=== PATIENT | female | born 1940 | race Caucasian/White ===

== ENCOUNTER 2017-08-01 07:19 | Inpatient (IN) ==
--- NOTE | 2017-08-01 07:49 | Emergency Department Note ---
Disposition Clinical Impression: Dehydration, Laceration, Pulmonary mass Thoracic spine fracture Qualifiers: Encounter type: subsequent encounter Thoracic vertebra fracture level: T10 Fracture type: closed Fracture morphology: unspecified fracture morphology Fracture healing: with routine healing Qualified Code(s): S22.079D - Unspecified fracture of T9-T10 vertebra, subsequent encounter for fracture with routine healing Disposition: Admitted As Inpatient Condition: Fair Fall HPI - General Chief Complaint: ED Fall Stated Complaint: fall Time Seen by Provider: 08/01/17 07:21 Source: EMS Mode of arrival: EMS Limitations: no limitations Nursing Notes Reviewed: Yes Vital Signs Reviewed: Yes - History of Present Illness HPI Narrative: 76 year old female who is living in an printing bindery assistant living facility presents with fall. Pt stated she has weak legs. She usually has a printing bindery assistant in daytime to help her move in wheelchair. She tried to stand up from bed this morning. And she lost balance and fell on her face. Pt denied loss of consciousness. Pt had help within 5 minutes. Pt denied headache, chest pain, abdominal pain or legs pain. pt is not on blood thinner. Up-to-date vaccination. Pt fell on 2017. She had PT evaluation yesterday. Pt complained of some neck pain and right shoulder pain from last time fall. Pt Subjective Complaint: fall Onset (ago): hour(s) (1) Fall From: out of bed Fall Witnessed: no Place Fall Occurred: care home/SNF Loss of Consciousness: none Prolonged Down Time?: no Symptoms Prior to Fall: other (both legs weakness) - Related Data Home Medications Medication Instructions Recorded Confirmed Acetaminophen [Tylenol] 650 mg PO Q4H PRN 08/01/17 08/01/17 Aspirin [Lo-Dose Aspirin EC] 81 mg PO HS 08/01/17 08/01/17 BuPROPion SR (12 HR) [Wellbutrin 100 mg PO BID 08/01/17 08/01/17 SR] Calcitriol [Rocaltrol] 0.25 mcg PO DAILY 08/01/17 08/01/17 Cholecalciferol (D-3) [Vitamin D] 1,000 unit PO DAILY 08/01/17 08/01/17 FLUoxetine HCl [PROzac] 80 mg PO DAILY 08/01/17 08/01/17 Ferrous Sulfate [Iron] 325 mg PO HS 08/01/17 08/01/17 Furosemide [Lasix] 20 mg PO MOWEFR 08/01/17 08/01/17 Loperamide HCl [Imodium A-D] 2 mg PO QID PRN 08/01/17 08/01/17 Lovastatin 40 mg PO HS 08/01/17 08/01/17 Mag Hydrox/Al Hydrox/Simeth 30 ml PO DAILY PRN 08/01/17 08/01/17 [Antacid Suspension] Magnesium Hydroxide [Milk of 30 ml PO DAILY PRN 08/01/17 08/01/17 Magnesia] Nystatin POWDER [Nystop] 1 appl TP TID 08/01/17 08/01/17 Ondansetron [Zofran ODT] 8 mg SL Q8H PRN 08/01/17 08/01/17 Propranolol LA (24 HR) [Inderal LA] 60 mg PO DAILY 08/01/17 08/01/17 Sennosides [Senna] 2 tab PO DAILY PRN 08/01/17 08/01/17 Tramadol HCl [Ultram] 50 mg PO QID PRN 08/01/17 08/01/17 Trospium Chloride 20 mg PO HS 08/01/17 08/01/17 predniSONE [PredniSONE] 4 mg PO DAILY 08/01/17 08/01/17 Allergies Allergy/AdvReac Type Severity Reaction Status Date / Time No Known Allergies Allergy Verified 08/01/17 12:37 Constitutional: Denies: fever, chills, weakness Eyes: Denies: eye pain, eye discharge ENT ED: Denies: ear pain, throat pain, dental pain Cardiovascular: Denies: chest pain, palpitations, dyspnea on exertion Respiratory: Denies: cough, dyspnea, wheezes Gastrointestinal: Denies: abdominal pain, nausea, vomiting Genitourinary: Denies: urgency, dysuria, frequency, hematuria Musculoskeletal: Reports: neck pain. Denies: back pain, joint swelling, arthralgia Integumentary: Reports: lesions (old ulcer right mercado), other (a small laceration on right side upper lid). Denies: rash, abrasion Neurological: Denies: headache, weakness, numbness Psychiatric: Denies: anxiety, depression, suicidal thoughts Endocrine: Denies: fatigue, heat or cold intolerance Hematological/Lymphatic: Denies: easy bleeding, easy bruising Allergic/Immunologic: Denies: facial swelling, urticaria Fall PMH - Past Medical History Medical history: Reports: diabetes, hyperlipidemia, hypertension, osteoporosis, COPD Psychiatric history: Reports: depression - Social History Smoking Status: Never smoker Alcohol use: Reports: none Drug use: Reports: none Physical Exam - General Limitations: no limitations General appearance: alert, in no apparent distress - Head Head exam: atraumatic, normal inspection - Eye Eye exam: Present: normal appearance. Absent: scleral icterus, conjunctival injection - ENT ENT exam: normal exam, normal external ear exam - Neck Neck exam: Present: normal inspection, full ROM, trachea midline, tenderness ( right side neck tender to palpation, no limited of ROM on cervicle spine) - Chest Chest inspection: Present: normal inspection, symmetric chest wall rise. Absent : tenderness - Respiratory Respiratory exam: Present: normal lung sounds bilaterally. Absent: respiratory distress, wheezes - Cardiovascular Cardiovascular exam: Present: regular rate, normal rhythm - Abdominal Exam Abdominal exam: Present: soft, Non-Tender - Extremities Exam Extremities exam: Present: normal inspection, full ROM. Absent: tenderness - Expanded Lower Extremity Exam Lower leg exam: Present: swelling, other (bilateral lower leg mild swelling, there is a 2x2 ulcer on right mercado, mild warm, no purulent drainage noted) Ankle exam: Present: normal inspection, full ROM. Absent: tenderness, swelling Neurovascular/Tendon exam: Present: normal capillary refill - Back Exam Back exam: Present: normal inspection, other (pt lying on bed, able to sit up) - Neurological Exam Neurological exam: Present: alert, oriented X3 - Psychiatric Psychiatric exam: Present: normal affect, normal mood - Skin Skin exam: Present: warm Course Vital Signs Temperature 97.8 F 08/01/17 07:22 Pulse Rate 62 08/01/17 07:22 Respiratory Rate 20 08/01/17 07:22 Blood Pressure 173/76 08/01/17 07:22 O2 Sat by Pulse Oximetry 96 08/01/17 07:22 Temperature 98.2 F 08/01/17 14:16 Pulse Rate 61 08/01/17 14:16 Respiratory Rate 14 08/01/17 14:16 Blood Pressure 149/79 08/01/17 14:16 O2 Sat by Pulse Oximetry 96 08/01/17 14:16 Oxygen Delivery Oxygen Delivery Room Air Procedures - Laceration Laceration 1 Site: lip Side (If applicable): right Size (cm): 2 Description: linear Depth: simple, single layer Local Anesthetic: lidocaine 1% Amount of Anesthesia Used (mL): 5 Pre-repair: wound explored Skin layer closed with: nylon Size: 5-0 Number of sutures/caprice: 5 Technique: simple, interrupted Fall - [facility] Narrative Medical decision making narrative: 76 year old female presents with fall. Pt is a resident of [facility]. pt fell on her face this morning. No loss of consciousness. No downtime. not on blood thinner. Recently fell two weeks ago. Physical exam: alert and oriented, a 2 cm laceration on right upper lip, no active bleeding, right side neck tender, abdomen soft, no tender. right side mercado with a chronic small [id number] cm, mild erythema, mild warmth, no tender, no purulent drainage. Labs: elevated white cell 27, cr. 2.05 (increasing from two weeks ago) . CT head, facial, cervical, thoracic, chest, abdomen done, indicated multiple acute thoracic spine fracture, some new lung mass noted. lip laceration is fixed with 5 stitches (see procedure note), pt tolerated well the procedure. Dr. Lee saw the patient, he discussed this case with hospitalist, pt will be admitted to hospital for dehydration, acute kidney injury, thoracic fracture. 500 ml bolus fluids given in ER - Lab Data Lab results reviewed: Yes I reviewed the patient's lab results. Result diagrams: 08/01/17 08:04 08/01/17 08:04 Lab Results 08/01/17 08/01/17 08/01/17 Range/Units 08:04 08:04 10:08 WBC 27.6 H (4.3-11.1) K/mcL RBC 3.63 L (3.82-4.97) M/mcL Hgb 11.3 L (11.5-15.4) g/dL Hct 34.1 L (35.3-44.9) % MCV 93.9 (83.0-100.0) fL MCH 31.1 (28.0-33.3) pg MCHC 33.1 (31.6-35.5) g/dL RDW 14.6 H (11.5-14.5) % Plt Count 158 (140-400) K/mcL MPV 11.4 (9.4-12.4) fL Immature Gran % 2.6 (0-4) % Seg Neutrophils % 86.8 % Lymphocytes % 4.6 % Monocytes % 5.6 % Eosinophils % 0.2 % Basophils % 0.2 % Neutrophils # 24.0 H (1.6-8.9) K/mcL Lymphocytes # 1.3 (0.6-4.6) K/mcL Monocytes # 1.6 H (0.0-1.3) K/mcL Eosinophils # 0.1 (0.0-0.6) K/mcL Basophils # 0.1 (0.0-0.2) K/mcL Nucleated RBCs/100 WBC 0.1 H (0) /100 WBC Platelet Estimate Normal (Normal) Sodium 132 L (136-145) mEq/L Potassium 4.3 (3.5-5.1) mEq/L Chloride 95 L (98-107) mEq/L Carbon Dioxide 27 (23-29) mEq/L BUN 46 H (8-23) mg/dL Creatinine 2.05 H (0.60-1.20) mg/dL Est GFR ( Amer) 29 L (> 60) Est GFR (Non-Af Amer) 24 L (> 60) BUN/Creatinine Ratio 22 (6-26) Glucose 258 H (70-105) mg/dL Calculated Osmolality 295 (280-300) Lactic Acid 0.9 (0.5-2.2) mmol/L Calcium 8.7 (8.6-10.3) mg/dL Troponin I < 0.03 (< 0.04) ng/mL Urine Color (Yellow) Urine Clarity (Clear) Urine pH (5.0-8.0) pH Units Ur Specific [place] (1.010-1.025) Urine Protein (Neg-Trace) mg/dL Urine Glucose (UA) (Normal) mg/dL Urine Ketones (Negative) mg/dL Urine Blood (Negative) Urine Nitrite (Negative) Urine Bilirubin (Negative) Urine Urobilinogen (Normal) mg/dL Ur Leukocyte Esterase (Negative) Urine Microscopic RBC (0-3) per hpf Urine Microscopic WBC (0-3) per hpf Ur Squamous Epith Cells (None-Few) per lpf Urine Bacteria (None-Few) per hpf Hyaline Casts (None-Few) per lpf Ur Culture Indicated? (NO) 08/01/17 Range/Units 10:17 WBC (4.3-11.1) K/mcL RBC (3.82-4.97) M/mcL Hgb (11.5-15.4) g/dL Hct (35.3-44.9) % MCV (83.0-100.0) fL MCH (28.0-33.3) pg MCHC (31.6-35.5) g/dL RDW (11.5-14.5) % Plt Count (140-400) K/mcL MPV (9.4-12.4) fL Immature Gran % (0-4) % Seg Neutrophils % % Lymphocytes % % Monocytes % % Eosinophils % % Basophils % % Neutrophils # (1.6-8.9) K/mcL Lymphocytes # (0.6-4.6) K/mcL Monocytes # (0.0-1.3) K/mcL Eosinophils # (0.0-0.6) K/mcL Basophils # (0.0-0.2) K/mcL Nucleated RBCs/100 WBC (0) /100 WBC Platelet Estimate (Normal) Sodium (136-145) mEq/L Potassium (3.5-5.1) mEq/L Chloride (98-107) mEq/L Carbon Dioxide (23-29) mEq/L BUN (8-23) mg/dL Creatinine (0.60-1.20) mg/dL Est GFR ( Amer) (> 60) Est GFR (Non-Af Amer) (> 60) BUN/Creatinine Ratio (6-26) Glucose (70-105) mg/dL Calculated Osmolality (280-300) Lactic Acid (0.5-2.2) mmol/L Calcium (8.6-10.3) mg/dL Troponin I (< 0.04) ng/mL Urine Color Yellow (Yellow) Urine Clarity Clear (Clear) Urine pH 6.0 (5.0-8.0) pH Units Ur Specific [place] 1.018 (1.010-1.025) Urine Protein Trace (Neg-Trace) mg/dL Urine Glucose (UA) 250 H (Normal) mg/dL Urine Ketones Negative (Negative) mg/dL Urine Blood Negative (Negative) Urine Nitrite Negative (Negative) Urine Bilirubin Negative (Negative) Urine Urobilinogen Normal (Normal) mg/dL Ur Leukocyte Esterase Negative (Negative) Urine Microscopic RBC 0-3 (0-3) per hpf Urine Microscopic WBC 0-3 (0-3) per hpf Ur Squamous Epith Cells Many H (None-Few) per lpf Urine Bacteria None Seen (None-Few) per hpf Hyaline Casts None Seen (None-Few) per lpf Ur Culture Indicated? NO (NO) - Radiology Data Radiology results reviewed: Yes I reviewed the patient's radiology results. CT/CT abd pelvis wo no iv no oral IMPRESSION: 1. Acute moderate superior endplate compression fracture of T10 with 50% vertebral body height loss. 2. Acute mild superior endplate compression fracture of T12 with 20% vertebral body height loss. 3. Acute mild superior endplate compression fracture of T8 with 10% vertebral body height loss. 4. Nondisplaced left transverse process fracture at L1. 5. No acute traumatic abnormality in the chest. Soft tissue edema in the right axilla is likely posttraumatic. No evidence of rib fracture. 6. Acute-subacute nondisplaced sacrococcygeal fracture. 7. No acute abnormality in the abdomen or pelvis on the noncontrast CT. 8. Multiple scattered pulmonary nodules measuring up to 5 mm in size, new compared to 2009. Follow-up chest CT recommended in 12 months.
--- NOTE | 2017-08-01 08:11 | Emergency Department Note ---
Disposition Clinical Impression: Dehydration, Laceration, Pulmonary mass Thoracic spine fracture Qualifiers: Encounter type: subsequent encounter Thoracic vertebra fracture level: T10 Fracture type: closed Fracture morphology: unspecified fracture morphology Fracture healing: with routine healing Qualified Code(s): S22.079D - Unspecified fracture of T9-T10 vertebra, subsequent encounter for fracture with routine healing Disposition: Admitted As Inpatient Condition: Fair General Adult HPI - General Chief complaint: ED Fall Stated complaint: fall Time Seen by Provider: 08/01/17 07:21 Source: EMS Mode of arrival: EMS Limitations: no limitations - History of Present Illness Pain Scale: 2 - Related Data Home Medications Medication Instructions Recorded Confirmed Acetaminophen [Tylenol] 650 mg PO Q4H PRN 08/01/17 08/01/17 Aspirin [Lo-Dose Aspirin EC] 81 mg PO HS 08/01/17 08/01/17 BuPROPion SR (12 HR) [Wellbutrin 100 mg PO BID 08/01/17 08/01/17 SR] Calcitriol [Rocaltrol] 0.25 mcg PO DAILY 08/01/17 08/01/17 Cholecalciferol (D-3) [Vitamin D] 1,000 unit PO DAILY 08/01/17 08/01/17 FLUoxetine HCl [PROzac] 80 mg PO DAILY 08/01/17 08/01/17 Ferrous Sulfate [Iron] 325 mg PO HS 08/01/17 08/01/17 Furosemide [Lasix] 20 mg PO MOWEFR 08/01/17 08/01/17 Loperamide HCl [Imodium A-D] 2 mg PO QID PRN 08/01/17 08/01/17 Lovastatin 40 mg PO HS 08/01/17 08/01/17 Mag Hydrox/Al Hydrox/Simeth 30 ml PO DAILY PRN 08/01/17 08/01/17 [Antacid Suspension] Magnesium Hydroxide [Milk of 30 ml PO DAILY PRN 08/01/17 08/01/17 Magnesia] Nystatin POWDER [Nystop] 1 appl TP TID 08/01/17 08/01/17 Ondansetron [Zofran ODT] 8 mg SL Q8H PRN 08/01/17 08/01/17 Propranolol LA (24 HR) [Inderal LA] 60 mg PO DAILY 08/01/17 08/01/17 Sennosides [Senna] 2 tab PO DAILY PRN 08/01/17 08/01/17 Tramadol HCl [Ultram] 50 mg PO QID PRN 08/01/17 08/01/17 Trospium Chloride 20 mg PO HS 08/01/17 08/01/17 predniSONE [PredniSONE] 4 mg PO DAILY 08/01/17 08/01/17 Allergies Allergy/AdvReac Type Severity Reaction Status Date / Time No Known Allergies Allergy Verified 08/01/17 12:37 Past Medical History - Past Medical History Medical history: Reports: diabetes, hyperlipidemia, hypertension, osteoporosis, COPD Psychiatric history: Reports: depression - Social History Smoking Status: Never smoker Smokeless Tobacco Status: No Alcohol use: Reports: none Drug use: Reports: none Physical Exam - General Limitations: no limitations General appearance: alert, in no apparent distress Course - Consultations Consultation #1: Discussed with Dr. Ambriz he will see the patient in consult. Time: 13:08 Consultation #2: Discussed with Dr. Goldstein admit Time: 13:09 Vital Signs Temperature 97.8 F 08/01/17 07:22 Pulse Rate 62 08/01/17 07:22 Respiratory Rate 20 08/01/17 07:22 Blood Pressure 173/76 08/01/17 07:22 O2 Sat by Pulse Oximetry 96 08/01/17 07:22 Temperature 98.4 F 08/01/17 18:20 Pulse Rate 64 08/01/17 18:20 Respiratory Rate 16 08/01/17 18:20 Blood Pressure 152/65 08/01/17 18:20 O2 Sat by Pulse Oximetry 95 08/01/17 18:20 Oxygen Delivery Oxygen Delivery Room Air Medical Decision Making - Lab Data Result diagrams: 08/01/17 08:04 08/01/17 08:04 Lab Results 08/01/17 08/01/17 08/01/17 Range/Units 08:04 08:04 10:08 WBC 27.6 H (4.3-11.1) K/mcL RBC 3.63 L (3.82-4.97) M/mcL Hgb 11.3 L (11.5-15.4) g/dL Hct 34.1 L (35.3-44.9) % MCV 93.9 (83.0-100.0) fL MCH 31.1 (28.0-33.3) pg MCHC 33.1 (31.6-35.5) g/dL RDW 14.6 H (11.5-14.5) % Plt Count 158 (140-400) K/mcL MPV 11.4 (9.4-12.4) fL Immature Gran % 2.6 (0-4) % Seg Neutrophils % 86.8 % Lymphocytes % 4.6 % Monocytes % 5.6 % Eosinophils % 0.2 % Basophils % 0.2 % Neutrophils # 24.0 H (1.6-8.9) K/mcL Lymphocytes # 1.3 (0.6-4.6) K/mcL Monocytes # 1.6 H (0.0-1.3) K/mcL Eosinophils # 0.1 (0.0-0.6) K/mcL Basophils # 0.1 (0.0-0.2) K/mcL Nucleated RBCs/100 WBC 0.1 H (0) /100 WBC Platelet Estimate Normal (Normal) Sodium 132 L (136-145) mEq/L Potassium 4.3 (3.5-5.1) mEq/L Chloride 95 L (98-107) mEq/L Carbon Dioxide 27 (23-29) mEq/L BUN 46 H (8-23) mg/dL Creatinine 2.05 H (0.60-1.20) mg/dL Est GFR ( Amer) 29 L (> 60) Est GFR (Non-Af Amer) 24 L (> 60) BUN/Creatinine Ratio 22 (6-26) Glucose 258 H (70-105) mg/dL Calculated Osmolality 295 (280-300) Lactic Acid 0.9 (0.5-2.2) mmol/L Calcium 8.7 (8.6-10.3) mg/dL Troponin I < 0.03 (< 0.04) ng/mL Urine Color (Yellow) Urine Clarity (Clear) Urine pH (5.0-8.0) pH Units Ur Specific [place] (1.010-1.025) Urine Protein (Neg-Trace) mg/dL Urine Glucose (UA) (Normal) mg/dL Urine Ketones (Negative) mg/dL Urine Blood (Negative) Urine Nitrite (Negative) Urine Bilirubin (Negative) Urine Urobilinogen (Normal) mg/dL Ur Leukocyte Esterase (Negative) Urine Microscopic RBC (0-3) per hpf Urine Microscopic WBC (0-3) per hpf Ur Squamous Epith Cells (None-Few) per lpf Urine Bacteria (None-Few) per hpf Hyaline Casts (None-Few) per lpf Ur Culture Indicated? (NO) 08/01/17 Range/Units 10:17 WBC (4.3-11.1) K/mcL RBC (3.82-4.97) M/mcL Hgb (11.5-15.4) g/dL Hct (35.3-44.9) % MCV (83.0-100.0) fL MCH (28.0-33.3) pg MCHC (31.6-35.5) g/dL RDW (11.5-14.5) % Plt Count (140-400) K/mcL MPV (9.4-12.4) fL Immature Gran % (0-4) % Seg Neutrophils % % Lymphocytes % % Monocytes % % Eosinophils % % Basophils % % Neutrophils # (1.6-8.9) K/mcL Lymphocytes # (0.6-4.6) K/mcL Monocytes # (0.0-1.3) K/mcL Eosinophils # (0.0-0.6) K/mcL Basophils # (0.0-0.2) K/mcL Nucleated RBCs/100 WBC (0) /100 WBC Platelet Estimate (Normal) Sodium (136-145) mEq/L Potassium (3.5-5.1) mEq/L Chloride (98-107) mEq/L Carbon Dioxide (23-29) mEq/L BUN (8-23) mg/dL Creatinine (0.60-1.20) mg/dL Est GFR ( Amer) (> 60) Est GFR (Non-Af Amer) (> 60) BUN/Creatinine Ratio (6-26) Glucose (70-105) mg/dL Calculated Osmolality (280-300) Lactic Acid (0.5-2.2) mmol/L Calcium (8.6-10.3) mg/dL Troponin I (< 0.04) ng/mL Urine Color Yellow (Yellow) Urine Clarity Clear (Clear) Urine pH 6.0 (5.0-8.0) pH Units Ur Specific [place] 1.018 (1.010-1.025) Urine Protein Trace (Neg-Trace) mg/dL Urine Glucose (UA) 250 H (Normal) mg/dL Urine Ketones Negative (Negative) mg/dL Urine Blood Negative (Negative) Urine Nitrite Negative (Negative) Urine Bilirubin Negative (Negative) Urine Urobilinogen Normal (Normal) mg/dL Ur Leukocyte Esterase Negative (Negative) Urine Microscopic RBC 0-3 (0-3) per hpf Urine Microscopic WBC 0-3 (0-3) per hpf Ur Squamous Epith Cells Many H (None-Few) per lpf Urine Bacteria None Seen (None-Few) per hpf Hyaline Casts None Seen (None-Few) per lpf Ur Culture Indicated? NO (NO) - Radiology Data Radiology results reviewed: Yes I reviewed the patient's radiology results. Attestation Statement - Attestation Attestation: For this encounter, I have reviewed the POULTRY INSEMINATOR or PA documentation, treatment plan, and medical decision making; and I have had face to face time with this patient. A 76-year-old who fell striking her head. She has got a laceration to her right upper lip. She denies loss of consciousness. She has fallen in the recent past. She is in an assisted living program. Physical exam she has about a 2 cm laceration right upper lip going through the vermilion border. She is awake and alert her Glascow coma scale is 15. Her abdomen soft. Neurologically she is intact. We will obtain imaging of the suture and social welfare administrator consult. The patient's labs show a progressive acute kidney injury with dehydration. Patient will be admitted for hydration.
[2017-08-01 08:13] LABS: Basophils % 0.2 %; Red Cell Distribution Width 14.6 % (11.5-14.5)
[2017-08-01 08:15] LABS: Basophils # 0.1 K/mcL (0.0-0.2); Eosinophils # 0.1 K/mcL (0.0-0.6); Eosinophils % 0.2 %; Hematocrit 34.1 % (35.3-44.9); Hemoglobin 11.3 g/dL (11.5-15.4); Immature Granulocytes % 2.6 % (0-4); Lymphocytes # 1.3 K/mcL (0.6-4.6); Lymphocytes % 4.6 %; Mean Corpuscular HGB Conc 33.1 g/dL (31.6-35.5); Mean Corpuscular Hemoglobin 31.1 pg (28.0-33.3); Mean Corpuscular Volume 93.9 fL (83.0-100.0); Mean Platelet Volume 11.4 fL (9.4-12.4); Monocytes % 5.6 %; Nucleated Red Blood Cells 0.1 /100 WBC (0); Platelet Count 158 K/mcL (140-400); Red Blood Count 3.63 M/mcL (3.82-4.97); Segmented Neutrophils % 86.8 %
[2017-08-01 08:16] LABS: Monocytes # 1.6 K/mcL (0.0-1.3)
[2017-08-01] MEDS ORDERED: Lidocaine 1% 20 ML MDV INFILT ONE (08:21)
[2017-08-01 08:34] LABS: BUN/Creatinine Ratio 22 (6-26); Blood Urea Nitrogen 46 mg/dL (8-23); Calcium 8.7 mg/dL (8.6-10.3); Carbon Dioxide 27 mEq/L (23-29); Chloride 95 mEq/L (98-107); Glucose 258 mg/dL (70-105); Osmolality,Calculated 295 (280-300); Potassium 4.3 mEq/L (3.5-5.1); Sodium 132 mEq/L (136-145); eGFR For African Americans 29 (> 60); eGFR For Non-African Americans 24 (> 60)
[2017-08-01 08:42] LABS: Platelet Estimate Normal (Normal); Troponin I < 0.03 ng/mL (< 0.04)
[2017-08-01 10:38] LABS: Bilirubin,Urine Negative (Negative); Blood,Urine Negative (Negative); Clarity,Urine Clear (Clear); Color,Urine Yellow (Yellow); Glucose,Urine (UA) 250 mg/dL (Normal); Ketones,Urine Negative (Negative); Leukocyte Esterase,Urine Negative (Negative); Nitrite,Urine Negative (Negative); Protein,Urine Trace mg/dL (Neg-Trace); Specific Gravity,Urine 1.018 (1.010-1.025); Urobilinogen,Urine Normal (Normal)
[2017-08-01 10:44] LABS: Bacteria,Urine None Seen per hpf (None-Few); Hyaline Casts,Urine None Seen per lpf (None-Few); RBC,Urine 0-3 per hpf (0-3); Squamous Epithelial Cell,Urine Many per lpf (None-Few); WBC,Urine 0-3 per hpf (0-3)
[2017-08-01] MEDS ORDERED: 0.9 % Sodium Chloride 500 ML IVC ONE (11:00)
--- NOTE | 2017-08-01 13:35 | Electrocardiograph Report ---
[facility] Test Date: 2017-08-01 Pat Name: Rosa Davis Department: 102 Room: 3B44 Gender: F Blending Operator: Enmanuel : 1940 Requested By: Truong Lemos Order Number: [id number] Reading MD: Nikita Pulido MD Measurements Intervals [place] Rate: 61 P: 100 OR: 173 QRS: -3 QRSD: 90 T: 59 QT: 439 QTc: 442 Interpretive Statements SINUS RHYTHM MODERATE ST DEPRESSION [0.05+ mV ST DEPRESSION] Electronically Signed On 08-01-2017 13:33:45 EDT by Nikita Pulido MD
[2017-08-01] MEDS ORDERED: *HR* OxyCODONE Immed Rel 5 MG TABLET PO PRN (14:55)
[2017-08-01] MEDS ORDERED: Naloxone 0.4 MG/ML INJ IVP PRN (14:55)
[2017-08-01] MEDS ORDERED: Acetaminophen 325 MG TABLET PO PRN (14:55)
[2017-08-01] MEDS ORDERED: Dextrose Gel 15 GM/37.5 ML TUBE PO PRN ×2 (15:12)
[2017-08-01] MEDS ORDERED: *HR* Dextrose 50 % in Water (Syg) 50 ML SYRINGE IVP PRN (15:12)
[2017-08-01] MEDS ORDERED: D5% in Water 1,000 ML IVC PRN (15:12)
[2017-08-01] MEDS ORDERED: MOM Conc 10 ML UD.LIQ PO PRN (15:16)
[2017-08-01] MEDS ORDERED: Sennosides 8.6 MG TABLET PO PRN (15:16)
[2017-08-01] MEDS ORDERED: traMADol 50 MG TABLET PO PRN (15:16)
[2017-08-01] MEDS ORDERED: Ondansetron 4 MG/2 ML VIAL IVP PRN (15:19)
--- NOTE | 2017-08-01 15:55 | Internal Med History&Physical ---
<Jovani Somers - Last Filed: 08/01/17 18:53> Date of Encounter: 08/01/17 Time of Encounter: 14:30 Internal Medicine - H&P: HPI Chief complaint: Fall Admitted From: Emergency Dept Plans for Post Hospital Care: Home History of present illness: Ms. Davis is a 76 year old female w/PMH of diabetes controlled with oral and insulin, HLD, HTN, osteoporosis, and COPD presents in the ED with chief complaint of fall sustained this morning. Patient states she was attempting to move from her bed to wheelchair when she fell on her face, biting her lip causing a laceration to the right side of her mouth requiring stitches. Patient reports history of falls with last occurrence on 07/19/17. Patient denies blacking out, becoming dizzy, or presyncopal. Patient denies recent illness, fever, chills, nausea, vomiting, shortness of breath, cough, congestion , changes in vision, unusual bleeding, chest pain, palpitations, dizziness, lightheadedness, numbness, tingling, pre-syncope, or syncope. Past Med Surg Social Fam HX - Past Medical History Source: patient, old records reviewed, obtained from family Medical history: diabetes, hyperlipidemia, hypertension, osteoporosis, COPD Psychiatric history: anxiety, depression - Past Surgical History Surgical History: cholecystectomy - Social History Smoking Status: Never smoker Smokeless Tobacco Status: No Alcohol use: none Drug use: none Current living situation: Assisted Living Activity Level: Wheelchair bound Recent Out of Country Travel Within the Last 8 Weeks: No Exposure or Possible Exposure to Illness During Travel: No - Family History Mother History Unknown: Yes Race: Family Member Ethnicity: Non- Living Status: Age at : 92 Cause of : Emphysema Hx Family Respiratory Disorders: Yes (Emphysema) Father Race: Family Member Ethnicity: Non- Living Status: Age at : 89 Cause of : Old age Brother Race: Family Member Ethnicity: Non- Living Status: Age at : 90 Cause of : [place] Hx Family Cardiac Disorders: Yes ([place]) Sister Race: Family Member Ethnicity: Non- Living Status: Cause of : [place] Hx Family Cardiac Disorders: Yes ([place], CAD) Internal Medicine - H&P: Meds Acetaminophen [Tylenol] 650 mg PO Q4H PRN 05/10/18 [History] Aspirin [Lo-Dose Aspirin EC] 81 mg PO HS 08/01/17 [History] BuPROPion SR (12 HR) [Wellbutrin SR] 100 mg PO BID 08/01/17 [History] Calcitriol [Rocaltrol] 0.25 mcg PO DAILY 08/01/17 [History] Cholecalciferol (D-3) [Vitamin D] 1,000 unit PO DAILY 08/01/17 [History] FLUoxetine HCl [PROzac] 80 mg PO DAILY 08/01/17 [History] Ferrous Sulfate [Iron] 325 mg PO HS 08/01/17 [History] Furosemide [Lasix] 20 mg PO MOWEFR 08/01/17 [History] Loperamide HCl [Imodium A-D] 2 mg PO QID PRN 08/01/17 [History] Lovastatin 40 mg PO HS 08/01/17 [History] Mag Hydrox/Al Hydrox/Simeth [Antacid Suspension] 30 ml PO DAILY PRN 08/01/17 [ History] Magnesium Hydroxide [Milk of Magnesia] 30 ml PO DAILY PRN 08/01/17 [History] Nystatin POWDER [Nystop] 1 appl TP TID 08/01/17 [History] Ondansetron [Zofran ODT] 8 mg SL Q8H PRN 08/01/17 [History] Propranolol LA (24 HR) [Inderal LA] 60 mg PO DAILY 08/01/17 [History] Sennosides [Senna] 2 tab PO DAILY PRN 08/01/17 [History] Tramadol HCl [Ultram] 50 mg PO QID PRN 08/01/17 [History] Trospium Chloride 20 mg PO HS 08/01/17 [History] predniSONE [PredniSONE] 4 mg PO DAILY 08/01/17 [History] 3 Allergy/AdvReac Type Severity Reaction Status Date / Time No Known Allergies Allergy Verified 08/01/17 12:37 All Systems PM: A 10-system review of systems was performed and is negative for pertinent findings except as documented above in the HPI. - Constitutional Constitutional: as per HPI, falls, weakness, no chills, no fever(s), no night sweats - EENT Eyes: no change in vision, no discharge, no pain, no photophobia Ears: no ear discharge, no ear pain, no tinnitus Nose, mouth and throat: no dysphagia, no nasal discharge, no neck pain, no sore throat - Breasts Breasts: as per HPI - Cardiovascular Cardiovascular ROS IM: no chest pain, no diaphoresis, no dyspnea, no lightheadedness, no palpitations, no syncope - Respiratory Respiratory: no cough, no dyspnea, no wheezing, no excessive phlegm production - Gastrointestinal Gastrointestinal: no abdominal pain, no diarrhea, no hematemesis, no hematochezia, no melena, no nausea, no vomiting - Genitourinary Genitourinary: no change in urinary stream, no dysuria, no flank pain, no hematuria Menstruation: as per HPI - Musculoskeletal Musculoskeletal ROS IM: as per HPI, arthralgias, no numbness, no tingling - Integumentary Integumentary IM: no rash, no unusual bruising - Neurological Neurological ROS: as per HPI, frequent falls, weakness, no confusion, no convulsions, no focal weakness, no numbness, no tingling, no tremor(s) - Psychiatric Psychiatric: as per HPI, depression - Endocrine Endocrine IM: as per HPI - Hematologic/Lymphatic Hematologic/Lymphatic: no easy bruising - Allergic/Immunologic Allergic/Immunologic: as per HPI - Constitutional Vitals: Temp Pulse Resp BP Pulse Ox 98.2 F 61 14 149/79 96 08/01/17 14:16 08/01/17 14:16 08/01/17 14:16 08/01/17 14:16 08/01/17 14:16 General appearance: Present: cooperative, mild distress (Mouth pain from fall), A&O X 3, pleasant, answers questions appropriately - Head Head exam: Present: normocephalic Additional comments: Trauma/laceration to right side of mouth from fall. - Eye Eye exam: Present: PERRL, conjuntiva pink, sclera anicteric Pupils: Present: PERRL - ENT ENT exam: Present: normal exam - Neck Neck exam general surgery: Present: normal inspection, supple, trachea midline. Absent: lymphadenopathy - Respiratory Respiratory exam: Present: CTAB. Absent: accessory muscle use, rales, rhonchi, wheezes - Cardiovascular Cardiovascular exam: Present: RRR, +S1, +S2. Absent: diastolic murmur, gallop, rubs, systolic murmur - GI/Abdominal GI/Abdominal exam: Present: normal bowel sounds, soft, no peritoneal signs. Absent: distended, tenderness - Rectal Rectal exam: Present: deferred - Additional comments: exam deferred. - Extremities Exam Extremities exam: Present: warm, radial pulses palpable and symmetrical. Absent : calf tenderness, cyanotic, pedal edema - Back Exam Back exam: Present: normal inspection - Neurological Exam Neurological exam: Present: CN II-XII intact, oriented X3, no focal deficits. Absent: pronater drift, facial droop, speech deficit - Psychiatric Psychiatric exam: Present: normal affect, normal mood - Skin Skin exam: Present: dry, intact Additional comments: Laceration to the right side of the mouth from fall requiring stitches. Internal Med - H&P Results - Labs CBC & Chem 7: 08/01/17 08:04 08/01/17 08:04 - EKG Data EKG shows normal: sinus rhythm - EKG Data Prior EKG available for review: no EKG comments: 08/01/17 16:00 EKG dated shows sinus rhythm with moderate ST depression. - Diagnostic Studies Chest x-ray Additional comments: Impressions Chest X-Ray 08/01/17 09:18 IMPRESSION: 1. Low lung volumes. No acute cardiopulmonary disease. 2. Moderate T11 and mild L1 compression fractures. These are favored to be chronic, although, were not present in 2008. If there is a concern for an acute fracture, further evaluation with MRI or CT is suggested. D/ / José Manuel Matamoros MD / José Manuel Matamoros MD Interpreting Provider: José Manuel Matamoros MD CT scan - head Additional comments: Impressions Head CT 08/01/17 07:41 IMPRESSION: 1. No acute intracranial abnormality. 2. Stable mild to moderate chronic small vessel ischemic changes. D/ / José Manuel Matamoros MD / José Manuel Matamoros MD Interpreting Provider: José Manuel Matamoros MD CT scan - abdomen Additional comments: Impressions Abdomen/Pelvis CT 08/01/17 11:25 IMPRESSION: 1. Acute moderate superior endplate compression fracture of T10 with 50% vertebral body height loss. 2. Acute mild superior endplate compression fracture of T12 with 20% vertebral body height loss. 3. Acute mild superior endplate compression fracture of T8 with 10% vertebral body height loss. 4. Nondisplaced left transverse process fracture at L1. 5. No acute traumatic abnormality in the chest. Soft tissue edema in the right axilla is likely posttraumatic. No evidence of rib fracture. 6. Acute-subacute nondisplaced sacrococcygeal fracture. 7. No acute abnormality in the abdomen or pelvis on the noncontrast CT. 8. Multiple scattered pulmonary nodules measuring up to 5 mm in size, new compared to 2009. Follow-up chest CT recommended in 12 months. RECOMMENDATIONS: Fleischner Society guidelines for follow-up and management of incidentally detected pulmonary nodules: Multiple Solid Nodules: Nodule size less than 6 mm In a low-risk patient, no routine follow-up. In a high-risk patient, optional CT at 12 months. - Low risk patients include individuals with minimal or absent history of smoking and other known risk factors. - High risk patients include individuals with a history or smoking or known risk factors. Radiology 2017 http://pubs.rsna.org/doi/full/10.1148/[email or web address] D/ / 08/01/2017 12:53:13 Judd Dukes MD / [facility] Interpreting Provider: Judd Dukes MD Other Images Additional comments: Impressions Cervical Spine CT 08/01/17 07:59 IMPRESSION: No acute abnormality of the cervical spine. D/ / José Manuel Matamoros MD / José Manuel Matamoros MD Interpreting Provider: José Manuel Matamoros MD Face CT 08/01/17 08:00 IMPRESSION: No acute traumatic injury of the facial bones. D/ / José Manuel Matamoros MD / José Manuel Matamoros MD Interpreting Provider: José Manuel Matamoros MD Thoracic Spine CT 08/01/17 11:48 IMPRESSION: 1. Acute moderate superior endplate compression fracture of T10 with 50% vertebral body height loss. 2. Acute mild superior endplate compression fracture of T12 with 20% vertebral body height loss. 3. Acute mild superior endplate compression fracture of T8 with 10% vertebral body height loss. 4. Nondisplaced left transverse process fracture at L1. 5. No acute traumatic abnormality in the chest. Soft tissue edema in the right axilla is likely posttraumatic. No evidence of rib fracture. 6. Acute-subacute nondisplaced sacrococcygeal fracture. 7. No acute abnormality in the abdomen or pelvis on the noncontrast CT. 8. Multiple scattered pulmonary nodules measuring up to 5 mm in size, new compared to 2009. Follow-up chest CT recommended in 12 months. RECOMMENDATIONS: Fleischner Society guidelines for follow-up and management of incidentally detected pulmonary nodules: Multiple Solid Nodules: Nodule size less than 6 mm In a low-risk patient, no routine follow-up. In a high-risk patient, optional CT at 12 months. - Low risk patients include individuals with minimal or absent history of smoking and other known risk factors. - High risk patients include individuals with a history or smoking or known risk factors. Radiology 2017 http://pubs.rsna.org/doi/full/10.1148/radiol.[email or web address] D/ / 08/01/2017 12:53:13 Judd Dukes MD / [facility] Interpreting Provider: Judd Dukes MD - Assessment and plan (1) Facial injury Current Visit: Yes Status: Acute Assessment and plan: Acute facial injury sustained from fall this morning. Pt. denies becoming syncopal or losing consciousness. Reports falling when trying to move from bed to wheelchair. CT of the face today shows no acute traumatic injury of the facial bones. Wound Care consult and daily wound care ordered. Requisition for pts. old medical records from [place] placed for transfer of care to [place]. Pt. needs PCP on discharge for continuation of care since she is moving to [place]. Pt. discussed w/Dr. Cummings who agrees w/plan of care. Pt. is at moderate risk for further falls and injury based on current fall and injury sustained today, hx of falls, hx of multiple compression fxs, and risk factors. Inpatient. Qualifiers: Encounter type: initial encounter Qualified Code(s): S09.93XA - Unspecified injury of face, initial encounter (2) Right shoulder pain Current Visit: Yes Status: Acute Assessment and plan: Acute right shoulder pain d/t fall sustained approx. 1 week ago. PCP @ [facility] as "frozen shoulder". XR of right shoulder ordered. Stair-step pain medications. Pain mgmt consult ordered. Qualifiers: Chronicity: acute Qualified Code(s): M25.511 - Pain in right shoulder (3) Thoracic spine fracture Current Visit: Yes Status: Acute Assessment and plan: Acute thoracic spine fxs. Hx of falls. CT of thoracic spine today shows acute moderate superior endplate compression fracture of T10 with 50% vertebral body height loss, acute mild superior endplate compression fracture T12 with 20% vertebral body height loss, acute mild superior endplate compression fracture at T8 with 10% vertebral body height loss, non-displaced left transverse process fracture at L1, and acute/subacute non-displaced sacral-coccygeal fracture. Dr. Ambriz consulted in ED and I appreciate the consult. Falls/safety precautions, up with assist, bed rest w/bathroom privileges w/assist only. Qualifiers: Encounter type: subsequent encounter Thoracic vertebra fracture level: T10 Fracture type: closed Fracture morphology: unspecified fracture morphology Fracture healing: with routine healing Qualified Code(s): S22.079D - Unspecified fracture of T9-T10 vertebra, subsequent encounter for fracture with routine healing (4) Leukocytosis Current Visit: Yes Status: Acute Assessment and plan: Acute leukocytosis w/WBC of 27.6 w/no known infection source. UA not indicative of UTI. Pt. is currently afebrile and asymptomatic. CXR unremarkable for infection process. Blood cultures x2 ordered. VS WNL. Monitor pt. and f/u labs for signs of infection. Will start pt. on IVPB ciprofloxacin 400 mg daily and Flagyl 500 mg every 6 hour for infection coverage. Will adjust abx coverage based on culture results. Qualifiers: Leukocytosis type: unspecified Qualified Code(s): D72.829 - Elevated white blood cell count, unspecified (5) Dehydration Current Visit: Yes Status: Acute Assessment and plan: Acute dehydration. Pt. and grand-daughter report reduced oral intake of food/ fluids over past week. Pt. given 500 mL bolus in ED. Will follow w/60 mL/HR. Monitor I&O and f/u labs for renal function and creatinine level. (6) Diabetes Current Visit: Yes Status: Chronic Assessment and plan: Hx of chronic DM controlled normally by oral medications and insulin. Pts. grand -daughter states that pt. is not using control currently and needs to re-start d /t uncontrolled BG. Will administer low-dose correction insulin sliding scale with hypoglycemic protocol. A1c in a.m. labs. BG checks before meals and at bedtime. Qualifiers: Diabetes mellitus type: type 2 Diabetes mellitus detention insulin use: unspecified detention insulin use status Diabetes mellitus complication status : with kidney complications Diabetes mellitus complication detail: with chronic kidney disease Chronic kidney disease stage: stage 4 (severe) Qualified Code(s): E11.22 - Type 2 diabetes mellitus with diabetic chronic kidney disease; N18.4 - Chronic kidney disease, stage 4 (severe) (7) CKD (chronic kidney disease) stage 4, GFR 15-29 ml/min Current Visit: Yes Status: Chronic Assessment and plan: Hx of CKD. Currently stage IV w/GFR of 24 and creatinine of 2.05. Will give pt. IV fluids d/t report of reduced oral intake and risk for dehydration. Monitor I& O and f/u labs. Avoid nephrotoxins. Renal diet. (8) HTN (hypertension) Current Visit: Yes Status: Chronic Assessment and plan: Hx of chronic HTN. Monitor pt. and VS. Continue pts. Inderal LA. Qualifiers: Hypertension type: essential hypertension Qualified Code(s): I10 - Essential (primary) hypertension (9) HLD (hyperlipidemia) Current Visit: Yes Status: Chronic Assessment and plan: Hx of chronic HLD. Lipid panel in a.m. Continue pts. lovastatin. Qualifiers: Hyperlipidemia type: pure hypercholesterolemia Qualified Code(s): E78.00 - Pure hypercholesterolemia, unspecified; E78.0 - Pure hypercholesterolemia (10) COPD (chronic obstructive pulmonary disease) Current Visit: Yes Status: Chronic Assessment and plan: Hx of chronic COPD. Stable. Qualifiers: COPD type: emphysema Emphysema type: unspecified Qualified Code(s): J43.9 - Emphysema, unspecified (11) Osteoporosis Current Visit: Yes Status: Chronic Assessment and plan: Hx of chronic osteoporosis. Continue pts. Rocaltrol. Qualifiers: Osteoporosis type: unspecified Presence of current pathological fracture: with current pathological fracture Encounter type: initial encounter Qualified Code(s): M80.00XA - Age-related osteoporosis with current pathological fracture, unspecified site, initial encounter for fracture (12) Hx of fall Current Visit: Yes Status: Chronic Assessment and plan: Hx of chronic falls. Falls/safety precautions, up with assist, bed rest w/ bathroom privileges w/assist only. PT/OT consults ordered. (13) DVT prophylaxis Current Visit: Yes Status: Acute Assessment and plan: Bilateral SCDs on LEs for DVT prophylaxis d/t current facial injury/bleeding. - Time Spent With Patient Total time spent is greater than 50% in coordination of care (as documented) at patient's floor/unit and/or counseling patient: Greater than 35 minutes <Marcelino Cummings P - Last Filed: 08/02/17 21:35> Date of Encounter: 08/02/17 Internal Medicine - H&P: HPI History of present illness: Ms. Davis is a 76 year old female All Systems PM: A 10-system review of systems was performed and is negative for pertinent findings except as documented above in the HPI. - Constitutional Vitals: Temp Pulse Resp BP Pulse Ox 97.7 F 54 16 159/78 96 08/02/17 15:57 08/02/17 15:57 08/02/17 15:57 08/02/17 15:57 08/02/17 15:57 Internal Med - H&P Results - Labs CBC & Chem 7: 08/02/17 04:07 08/02/17 04:07 Labs: Short CBC 08/02/17 Range/Units 04:07 WBC 21.3 H (4.3-11.1) K/mcL Hgb 10.4 L (11.5-15.4) g/dL Hct 31.3 L (35.3-44.9) % Plt Count 139 L (140-400) K/mcL Neutrophils # 17.5 H (1.6-8.9) K/mcL BMP 08/02/17 04:07 Sodium 136 Potassium 4.0 Chloride 103 Carbon Dioxide 29 BUN 36 H Creatinine 1.65 H Glucose 161 H Calcium 8.3 L Liver Function 08/02/17 Range/Units 04:07 Total Bilirubin 0.7 (0.3-1.0) mg/dL AST 15 (13-39) Units/L ALT 30 (7-52) Units/L Alkaline Phosphatase 55 (34-104) Units/L Albumin 2.7 L (3.5-5.7) g/dL - Impressions ITS Impressions Shoulder X-Ray 08/01/17 18:50 IMPRESSION: No acute fracture or malalignment. D/ / Lamont Guido / Lamont Guido Interpreting Provider: Lamont Guido - Attending Attestation I examined this patient and my medical decision-making was reviewed with the Resident Physician. I agree with the documented findings, disposition and treatment plan as described except to the extent set forth below. seen and examined agree with assessment and plan - Assessment and plan (1) Dehydration Current Visit: Yes Status: Acute (2) Thoracic spine fracture Current Visit: Yes Status: Acute Qualifiers: Encounter type: subsequent encounter Thoracic vertebra fracture level: T10 Fracture type: closed Fracture morphology: unspecified fracture morphology Fracture healing: with routine healing Qualified Code(s): S22.079D - Unspecified fracture of T9-T10 vertebra, subsequent encounter for fracture with routine healing (3) Facial injury Current Visit: Yes Status: Acute Qualifiers: Encounter type: initial encounter Qualified Code(s): S09.93XA - Unspecified injury of face, initial encounter (4) DVT prophylaxis Current Visit: Yes Status: Acute (5) Diabetes Current Visit: Yes Status: Chronic Qualifiers: Diabetes mellitus type: type 2 Diabetes mellitus detention insulin use: unspecified detention insulin use status Diabetes mellitus complication status : with kidney complications Diabetes mellitus complication detail: with chronic kidney disease Chronic kidney disease stage: stage 4 (severe) Qualified Code(s): E11.22 - Type 2 diabetes mellitus with diabetic chronic kidney disease; N18.4 - Chronic kidney disease, stage 4 (severe) (6) HTN (hypertension) Current Visit: Yes Status: Chronic Qualifiers: Hypertension type: essential hypertension Qualified Code(s): I10 - Essential (primary) hypertension (7) HLD (hyperlipidemia) Current Visit: Yes Status: Chronic Qualifiers: Hyperlipidemia type: pure hypercholesterolemia Qualified Code(s): E78.00 - Pure hypercholesterolemia, unspecified; E78.0 - Pure hypercholesterolemia (8) COPD (chronic obstructive pulmonary disease) Current Visit: Yes Status: Chronic Qualifiers: COPD type: emphysema Emphysema type: unspecified Qualified Code(s): J43.9 - Emphysema, unspecified (9) Osteoporosis Current Visit: Yes Status: Chronic Qualifiers: Osteoporosis type: unspecified Presence of current pathological fracture: with current pathological fracture Encounter type: initial encounter Qualified Code(s): M80.00XA - Age-related osteoporosis with current pathological fracture, unspecified site, initial encounter for fracture (10) CKD (chronic kidney disease) stage 4, GFR 15-29 ml/min Current Visit: Yes Status: Chronic (11) Hx of fall Current Visit: Yes Status: Chronic (12) Leukocytosis Current Visit: Yes Status: Acute Qualifiers: Leukocytosis type: unspecified Qualified Code(s): D72.829 - Elevated white blood cell count, unspecified (13) Right shoulder pain Current Visit: Yes Status: Acute Qualifiers: Chronicity: acute Qualified Code(s): M25.511 - Pain in right shoulder (14) Pulmonary nodule Current Visit: Yes Status: Acute - Time Spent With Patient Total time spent is greater than 50% in coordination of care (as documented) at patient's floor/unit and/or counseling patient:
[2017-08-01] MEDS: 0.9 % Sodium Chloride 1,000 ML IVC SCH (16:28)
[2017-08-01] MEDS: Pantoprazole 40 MG VIAL IVP SCH (16:28)
[2017-08-01] MEDS: Insulin LISPRO 300 UNITS/3 ML VIAL SQ SCH ×2 (16:28→20:49)
[2017-08-01] MEDS: MetroNIDAZOLE 500 MG/100 ML 500 MG/100 ML BAG IVPB SCH (19:40)
[2017-08-01] MEDS: *HR* HYDROcodone/Acet 5/325 mg TABLET PO PRN (19:52)
[2017-08-01] MEDS: BuPROPion SR (12 HR) 100 MG TABLET PO SCH (20:48)
[2017-08-01] MEDS: Aspirin Enteric Coated 81 MG Tablet PO SCH (20:49)
[2017-08-01] MEDS: Nystatin POWDER 30 GM BOTTLE TP SCH (20:49)
[2017-08-02] MEDS: MetroNIDAZOLE 500 MG/100 ML 500 MG/100 ML BAG IVPB SCH ×4 (00:14→17:53)
[2017-08-02] MEDS: *HR* HYDROcodone/Acet 5/325 mg TABLET PO PRN (03:41)
[2017-08-02 04:41] LABS: Basophils # 0.1 K/mcL (0.0-0.2); Basophils % 0.3 %; Eosinophils # 0.1 K/mcL (0.0-0.6); Eosinophils % 0.4 %; Hematocrit 31.3 % (35.3-44.9); Hemoglobin 10.4 g/dL (11.5-15.4); Immature Granulocytes % 2.3 % (0-4); Lymphocytes # 1.3 K/mcL (0.6-4.6); Lymphocytes % 6.2 %; Mean Corpuscular HGB Conc 33.2 g/dL (31.6-35.5); Mean Corpuscular Hemoglobin 31.3 pg (28.0-33.3); Mean Corpuscular Volume 94.3 fL (83.0-100.0); Mean Platelet Volume 11.5 fL (9.4-12.4); Monocytes # 1.9 K/mcL (0.0-1.3); Monocytes % 8.8 %; Neutrophils # 17.5 K/mcL (1.6-8.9); Platelet Count 139 K/mcL (140-400); Red Blood Count 3.32 M/mcL (3.82-4.97); Red Cell Distribution Width 14.6 % (11.5-14.5)
[2017-08-02 04:57] LABS: Albumin 2.7 g/dL (3.5-5.7); Albumin/Globulin Ratio 1.2 (1.1-2.2); Bilirubin,Total 0.7 mg/dL (0.3-1.0); Calcium 8.3 mg/dL (8.6-10.3); Chol/HDL Ratio 3.3 (0-4.9); Globulin 2.2 g/dL (2.4-3.5); Magnesium 1.7 mg/dL (1.6-2.6); Total Protein 4.9 g/dL (6.4-8.9)
--- NOTE | 2017-08-02 08:03 | Pain Management Consultation ---
Date of Encounter: 08/02/17 Time of Encounter: 08:00 Assessment and Plan (1) Compression deformity of vertebra Current Visit: Yes Status: Acute Compression Deformity 1. Recommend TLSO brace, my office will send bracing rep for fitting. 2. Recommend continued oral analgesia in accordance with WHO analgesic ladder 3. Recommend PT/OT consult for ambulation and functional evaluation. Surgical repair (kyphoplasty) would be an option if she does not do well with oral analgesia, bracing, and PT. 4. I plan to follow up with her on Saturday if she is still in hospital to check her functional status and overall plan. If she is discharged, recommend office follow up with me and placement in assisted care facility. The assessment and plan as outlined above was discussed with the patient and/or family members who expressed understanding and agreement. All questions were answered. History of Present Illness Chief complaint: back pain HPI: Ms. Davis is a 76 year old female suffering with pain middle back after a fall on . [place] and expressed a fall when she stood up and fell face forward. She was brought to the emergency department and a CT scan was performed there. Since yesterday, she has complained of pain in the middle of her back that does not radiate into her legs. She describes the pain right now is 2/10. She has little pain when lying still. She also has little pain while sitting up. She denies any weakness or numbness in her legs. She has been able to go to the bathroom without much pain. Pain is described as an aching sensation in her back. Prior to the fall, the patient was ambulating only a little bit with a walker. Past Med Surg Social Fam HX - Past Medical History Medical history: diabetes, hyperlipidemia, hypertension, osteoporosis, COPD Psychiatric history: anxiety, depression - Past Surgical History Surgical History: cholecystectomy - Social History Smoking Status: Never smoker Smokeless Tobacco Status: No Alcohol use: none Drug use: none - Family History Mother History Unknown: Yes Race: Family Member Ethnicity: Non- Living Status: Age at : 92 Cause of : Emphysema Hx Family Respiratory Disorders: Yes (Emphysema) Father Race: Family Member Ethnicity: Non- Living Status: Age at : 89 Cause of : Old age Brother Race: Family Member Ethnicity: Non- Living Status: Age at : 90 Cause of : MA Hx Family Cardiac Disorders: Yes (MA) Sister Race: Family Member Ethnicity: Non- Living Status: Cause of : MA Hx Family Cardiac Disorders: Yes (MA, CAD) Medications and Allergies Acetaminophen [Tylenol] 650 mg PO Q4H PRN 08/01/17 [History] Aspirin [Lo-Dose Aspirin EC] 81 mg PO HS 08/01/17 [History] BuPROPion SR (12 HR) [Wellbutrin SR] 100 mg PO BID 08/01/17 [History] Calcitriol [Rocaltrol] 0.25 mcg PO DAILY 08/01/17 [History] Cholecalciferol (D-3) [Vitamin D] 1,000 unit PO DAILY 08/01/17 [History] FLUoxetine HCl [PROzac] 80 mg PO DAILY 08/01/17 [History] Ferrous Sulfate [Iron] 325 mg PO HS 08/01/17 [History] Furosemide [Lasix] 20 mg PO MOWEFR 08/01/17 [History] Loperamide HCl [Imodium A-D] 2 mg PO QID PRN 08/01/17 [History] Lovastatin 40 mg PO HS 08/01/17 [History] Mag Hydrox/Al Hydrox/Simeth [Antacid Suspension] 30 ml PO DAILY PRN 08/01/17 [ History] Magnesium Hydroxide [Milk of Magnesia] 30 ml PO DAILY PRN 08/01/17 [History] Nystatin POWDER [Nystop] 1 appl TP TID 08/01/17 [History] Ondansetron [Zofran ODT] 8 mg SL Q8H PRN 08/01/17 [History] Propranolol LA (24 HR) [Inderal LA] 60 mg PO DAILY 08/01/17 [History] Sennosides [Senna] 2 tab PO DAILY PRN 08/01/17 [History] Tramadol HCl [Ultram] 50 mg PO QID PRN 08/01/17 [History] Trospium Chloride 20 mg PO HS 08/01/17 [History] predniSONE [PredniSONE] 4 mg PO DAILY 08/01/17 [History] 3 Allergy/AdvReac Type Severity Reaction Status Date / Time No Known Allergies Allergy Verified 08/01/17 12:37 Physical Exam Initial Vital Signs Temp Pulse Resp BP Pulse Ox 97.8 F 62 20 173/76 96 08/01/17 07:22 08/01/17 07:22 08/01/17 07:22 08/01/17 07:22 08/01/17 07:22 - General physical appearance General physical appearance: awake & oriented, no distress, no pain - Eyes Eye exam: normal ocular movement - ENT normal pinna, normal nares - Neck no masses - Respiratory normal respiratory effort - Abdomen Abdomen: soft, non tender, bowel sounds - Integumentary Integumentary general surgery: no rash - Neurologic normal coordination - Musculoskeletal Musculoskeletal: kyphosis - Psychiatric Psychiatric: oriented to time, oriented to person, oriented to place - Additional Findings EYES:: pupils equal and round, no myosis. SKIN:: no areas of echymoses or petechiae Area of ecchymosis and a small laceration on the right lip CARDIOVASCULAR:: regular rate and rhythm, no murmurs PULMONARY:: lung mattson clear to auscultation bilaterally. Quiet, normal respiratory pattern. GASTROINTESTINAL:: active bowel sounds. MUSCULOSKELETAL INSPECTION:: no surgical scarring in lumbar spine. PALPATION:: paraspinous musculature is not tender to deep palpation in the lumbar area bilaterally. There is no tenderness with palpation of the lumbar neuraxis midline. There is some tenderness with palpation of the thoracic spinous processes in the lower part of that area. STRENGTH:: RIGHT hip flexors: 5/5 :: LEFT hip flexors: 5/5 RIGHT hip adduction 5/5 :: LEFT hip adduction 5/5 RIGHT hip abduction 5/5 :: LEFT hip abduction 5/5 RIGHT knee extension 5/5 :: LEFT knee extension 5/5 RIGHT knee flexion 5/5 :: LEFT knee flexion 5/5 RIGHT ankle dorsiflexion 5/5 :: LEFT ankle dorsiflexion 5/5 RIGHT ankle plantarflexion 5/5 :: LEFT ankle plantarflexion 5/5 RIGHT great toe dorsiflexion 5/5 :: LEFT great toe dorsiflexion 3/5 RIGHT great toe plantarflexion 5/5 :: LEFT great toe plantarflexion 5/5 NEUROLOGIC DEEP TENDON REFLEXES:: RIGHT pateller 0/4 :: LEFT pateller 0/4 RIGHT achilles 0/4 :: LEFT achilles 0/4 SENSATION:: hypesthesia is not noted in lower extremity dermatomes. SIGNS OF NEUROVASCULAR COMPRESSION Clonus: none found bilateral with passive ROM at ankle joint Spasticity:: none Atrophy:: not present in UE or LE musculature Fasciculation:: not present in UE or LE musculature PSYCHIATRIC:: ORIENTATION:: awake and alert. INSIGHT:: good awareness of illness. AFFECT:: pleasant. Radiology Images Viewed By Me:: July 2017 CT of the thoracic spine shows multiple compression deformities with minimal retropulsion into the central canal. There is also a transverse process fracture. July 2017 radiograph of the right shoulder is normal. I have reviewed and agree with information documented in the scribed documentation, ROS, patient medications, allergies, medical history, surgical history, social history, and family history. Results - Labs 08/02/17 04:07 08/02/17 04:07 Abnormal lab results WBC 21.3 K/mcL (4.3-11.1) H 08/02/17 04:07 RBC 3.32 M/mcL (3.82-4.97) L 08/02/17 04:07 Hgb 10.4 g/dL (11.5-15.4) L 08/02/17 04:07 Hct 31.3 % (35.3-44.9) L 08/02/17 04:07 RDW 14.6 % (11.5-14.5) H 08/02/17 04:07 Plt Count 139 K/mcL (140-400) L 08/02/17 04:07 Neutrophils # 17.5 K/mcL (1.6-8.9) H 08/02/17 04:07 Monocytes # 1.9 K/mcL (0.0-1.3) H 08/02/17 04:07 Nucleated RBCs/100 WBC 0.1 /100 WBC (0) H 08/01/17 08:04 BUN 36 mg/dL (8-23) H 08/02/17 04:07 Creatinine 1.65 mg/dL (0.60-1.20) H 08/02/17 04:07 Est GFR ( Amer) 37 (> 60) L 08/02/17 04:07 Est GFR (Non-Af Amer) 30 (> 60) L 08/02/17 04:07 Glucose 161 mg/dL (70-105) H 08/02/17 04:07 POC Glucose 305 mg/dL (70-99) H 08/01/17 20:21 Calcium 8.3 mg/dL (8.6-10.3) L 08/02/17 04:07 Serum Total Protein 4.9 g/dL (6.4-8.9) L 08/02/17 04:07 Albumin 2.7 g/dL (3.5-5.7) L 08/02/17 04:07 Globulin 2.2 g/dL (2.4-3.5) L 08/02/17 04:07 HDL Cholesterol 26 mg/dL (40-59) L 08/02/17 04:07 Urine Glucose (UA) 250 mg/dL (Normal) H 08/01/17 10:17 Ur Squamous Epith Cells Many per lpf (None-Few) H 08/01/17 10:17 Diabetes panel 08/02/17 Range/Units 04:07 Sodium 136 (136-145) mEq/L Potassium 4.0 (3.5-5.1) mEq/L Chloride 103 (98-107) mEq/L Carbon Dioxide 29 (23-29) mEq/L BUN 36 H (8-23) mg/dL Creatinine 1.65 H (0.60-1.20) mg/dL Glucose 161 H (70-105) mg/dL Calcium 8.3 L (8.6-10.3) mg/dL AST 15 (13-39) Units/L ALT 30 (7-52) Units/L Alkaline Phosphatase 55 (34-104) Units/L Albumin 2.7 L (3.5-5.7) g/dL Triglycerides 145 (< 150) mg/dL HDL Cholesterol 26 L (40-59) mg/dL Calcium panel 08/02/17 Range/Units 04:07 Calcium 8.3 L (8.6-10.3) mg/dL Albumin 2.7 L (3.5-5.7) g/dL Pituitary panel 08/02/17 Range/Units 04:07 Sodium 136 (136-145) mEq/L Potassium 4.0 (3.5-5.1) mEq/L Chloride 103 (98-107) mEq/L Carbon Dioxide 29 (23-29) mEq/L BUN 36 H (8-23) mg/dL Creatinine 1.65 H (0.60-1.20) mg/dL Glucose 161 H (70-105) mg/dL Calcium 8.3 L (8.6-10.3) mg/dL Adrenal panel 08/02/17 Range/Units 04:07 Sodium 136 (136-145) mEq/L Potassium 4.0 (3.5-5.1) mEq/L Chloride 103 (98-107) mEq/L Carbon Dioxide 29 (23-29) mEq/L BUN 36 H (8-23) mg/dL Creatinine 1.65 H (0.60-1.20) mg/dL Glucose 161 H (70-105) mg/dL Calcium 8.3 L (8.6-10.3) mg/dL Total Bilirubin 0.7 (0.3-1.0) mg/dL AST 15 (13-39) Units/L ALT 30 (7-52) Units/L Alkaline Phosphatase 55 (34-104) Units/L Albumin 2.7 L (3.5-5.7) g/dL All other labs normal. Consult Discharge Plan - Plan Referrals: NONE,PCP [Primary Care Provider] -
[2017-08-02 08:38] LABS: Estimated Average Glucose 206 mg/dl; Hemoglobin A1C 8.8 %
[2017-08-02] MEDS: Nystatin POWDER 30 GM BOTTLE TP SCH ×3 (09:00→20:16)
[2017-08-02] MEDS: FLUoxetine 20 MG CAPSULE PO SCH (09:46)
[2017-08-02] MEDS: BuPROPion SR (12 HR) 100 MG TABLET PO SCH ×2 (09:46→20:15)
[2017-08-02] MEDS: Cholecalciferol (D-3) 1,000 UNIT TABLET PO SCH (09:46)
[2017-08-02] MEDS: predniSONE 1 MG TABLET PO SCH (09:47)
[2017-08-02] MEDS: Pantoprazole 40 MG VIAL IVP SCH (09:47)
[2017-08-02] MEDS: Propranolol LA (24 HR) 60 MG CAP.SA.24H PO SCH (09:47)
[2017-08-02] MEDS: Insulin LISPRO 300 UNITS/3 ML VIAL SQ SCH ×4 (09:48→20:16)
[2017-08-02] MEDS: 0.9 % Sodium Chloride 1,000 ML IVC SCH (11:46)
--- NOTE | 2017-08-02 15:04 | Internal Med Progress Note ---
Date of Encounter: 08/02/17 - Assessment and plan (1) Dehydration Current Visit: Yes Status: Acute (2) Thoracic spine fracture Current Visit: Yes Status: Acute Qualifiers: Encounter type: subsequent encounter Thoracic vertebra fracture level: T10 Fracture type: closed Fracture morphology: unspecified fracture morphology Fracture healing: with routine healing Qualified Code(s): S22.079D - Unspecified fracture of T9-T10 vertebra, subsequent encounter for fracture with routine healing (3) Facial injury Current Visit: Yes Status: Acute Qualifiers: Encounter type: initial encounter Qualified Code(s): S09.93XA - Unspecified injury of face, initial encounter (4) DVT prophylaxis Current Visit: Yes Status: Acute (5) Diabetes Current Visit: Yes Status: Chronic Qualifiers: Diabetes mellitus type: type 2 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 Diabetes mellitus complication status : with kidney complications Diabetes mellitus complication detail: with chronic kidney disease Chronic kidney disease stage: stage 4 (severe) Qualified Code(s): E11.22 - Type 2 diabetes mellitus with diabetic chronic kidney disease; N18.4 - Chronic kidney disease, stage 4 (severe) (6) HTN (hypertension) Current Visit: Yes Status: Chronic Qualifiers: Hypertension type: essential hypertension Qualified Code(s): I10 - Essential (primary) hypertension (7) HLD (hyperlipidemia) Current Visit: Yes Status: Chronic Qualifiers: Hyperlipidemia type: pure hypercholesterolemia Qualified Code(s): E78.00 - Pure hypercholesterolemia, unspecified; E78.0 - Pure hypercholesterolemia (8) COPD (chronic obstructive pulmonary disease) Current Visit: Yes Status: Chronic Qualifiers: COPD type: emphysema Emphysema type: unspecified Qualified Code(s): J43.9 - Emphysema, unspecified (9) Osteoporosis Current Visit: Yes Status: Chronic Qualifiers: Osteoporosis type: unspecified Presence of current pathological fracture: with current pathological fracture Encounter type: initial encounter Qualified Code(s): M80.00XA - Age-related osteoporosis with current pathological fracture, unspecified site, initial encounter for fracture (10) CKD (chronic kidney disease) stage 4, GFR 15-29 ml/min Current Visit: Yes Status: Chronic (11) Hx of fall Current Visit: Yes Status: Chronic (12) Leukocytosis Current Visit: Yes Status: Acute Qualifiers: Leukocytosis type: unspecified Qualified Code(s): D72.829 - Elevated white blood cell count, unspecified (13) Right shoulder pain Current Visit: Yes Status: Acute Qualifiers: Chronicity: acute Qualified Code(s): M25.511 - Pain in right shoulder - Time Spent With Patient Total time spent is greater than 50% in coordination of care (as documented) at patient's floor/unit and/or counseling patient: - Constitutional Vitals: Temp Pulse Resp BP Pulse Ox 98.3 F 63 14 151/74 95 08/02/17 11:12 08/02/17 11:12 08/02/17 11:12 08/02/17 11:12 08/02/17 11:12 General appearance: Present: cooperative, mild distress (Mouth pain from fall), A&O X 3, pleasant, answers questions appropriately Internal Medicine: Result - Labs CBC & Chem 7: 08/02/17 04:07 08/02/17 04:07 Labs: Short CBC 08/02/17 Range/Units 04:07 WBC 21.3 H (4.3-11.1) K/mcL Hgb 10.4 L (11.5-15.4) g/dL Hct 31.3 L (35.3-44.9) % Plt Count 139 L (140-400) K/mcL Neutrophils # 17.5 H (1.6-8.9) K/mcL BMP 08/02/17 04:07 Sodium 136 Potassium 4.0 Chloride 103 Carbon Dioxide 29 BUN 36 H Creatinine 1.65 H Glucose 161 H Calcium 8.3 L Liver Function 08/02/17 Range/Units 04:07 Total Bilirubin 0.7 (0.3-1.0) mg/dL AST 15 (13-39) Units/L ALT 30 (7-52) Units/L Alkaline Phosphatase 55 (34-104) Units/L Albumin 2.7 L (3.5-5.7) g/dL - Impressions Impressions Shoulder X-Ray 08/01/17 18:50 IMPRESSION: No acute fracture or malalignment. D/ / Lamont Guido / Lamont Guido Interpreting Provider: Lamont Guido Consult Discharge Plan - Plan Referrals: NONE,PCP [Primary Care Provider] -
--- NOTE | 2017-08-02 15:06 | Internal Med Progress Note ---
Date of Encounter: 08/02/17 Time of Encounter: 09:05 - Assessment and plan (1) Dehydration Current Visit: Yes Status: Acute Assessment and plan: Continue IVF hydration. Monitor labs and vitals. (2) Thoracic spine fracture Current Visit: Yes Status: Acute Assessment and plan: Acute thoracic spine fxs. Hx of falls. CT of thoracic spine today shows acute moderate superior endplate compression fracture of T10 with 50% vertebral body height loss, acute mild superior endplate compression fracture T12 with 20% vertebral body height loss, acute mild superior endplate compression fracture at T8 with 10% vertebral body height loss, non-displaced left transverse process fracture at L1, and acute/subacute non-displaced sacral-coccygeal fracture. Dr. Ambriz has evaluated pt. recommends TLSO brace, continue pain management, PT /OT. Kyphoplasty could be an option if she is not doing well with these other treatments. Monitor for falls and safety precautions. Qualifiers: Encounter type: subsequent encounter Thoracic vertebra fracture level: T10 Fracture type: closed Fracture morphology: unspecified fracture morphology Fracture healing: with routine healing Qualified Code(s): S22.079D - Unspecified fracture of T9-T10 vertebra, subsequent encounter for fracture with routine healing (3) Facial injury Current Visit: Yes Status: Acute Assessment and plan: Acute facial injury sustained from fall. CT of the face today shows no acute traumatic injury of the facial bones. Pt. needs PCP on discharge for continuation of care since she is moving to [place]. Patient was sutures to right upper lip. Monitor for signs of infection, bleeding. Sutures out in 7-10 days. Qualifiers: Encounter type: initial encounter Qualified Code(s): S09.93XA - Unspecified injury of face, initial encounter (4) DVT prophylaxis Current Visit: Yes Status: Acute Assessment and plan: Bilateral SCDs on LEs for DVT prophylaxis ordered. Will monitor for continued facial bleeding and can start pharmacologic treatment if no bleeding. (5) Diabetes Current Visit: Yes Status: Chronic Assessment and plan: Diabetes uncontrolled. A1c 8.8%. Continue SSI, accucheck achs, diabetic diet. Qualifiers: Diabetes mellitus type: type 2 Diabetes mellitus residential insulin use: unspecified residential insulin use status Diabetes mellitus complication status : with kidney complications Diabetes mellitus complication detail: with chronic kidney disease Chronic kidney disease stage: stage 4 (severe) Qualified Code(s): E11.22 - Type 2 diabetes mellitus with diabetic chronic kidney disease; N18.4 - Chronic kidney disease, stage 4 (severe) (6) HTN (hypertension) Current Visit: Yes Status: Chronic Assessment and plan: Chronic. Monitor pt. and VS. Continue home medications. Qualifiers: Hypertension type: essential hypertension Qualified Code(s): I10 - Essential (primary) hypertension (7) HLD (hyperlipidemia) Current Visit: Yes Status: Chronic Assessment and plan: Chronic. Continue home medications. Lipid panel wNL . Qualifiers: Hyperlipidemia type: pure hypercholesterolemia Qualified Code(s): E78.00 - Pure hypercholesterolemia, unspecified; E78.0 - Pure hypercholesterolemia (8) COPD (chronic obstructive pulmonary disease) Current Visit: Yes Status: Chronic Assessment and plan: NO acute exacerbation. Lungs clear and diminished, not requiring supplemental 02.. Continue home medications Continue telemetry Pulse ox with VS 02 as needed to maintain sats > 92% Qualifiers: COPD type: emphysema Emphysema type: unspecified Qualified Code(s): J43.9 - Emphysema, unspecified (9) Osteoporosis Current Visit: Yes Status: Chronic Assessment and plan: Chronic. Continue home medications. Qualifiers: Osteoporosis type: unspecified Presence of current pathological fracture: with current pathological fracture Encounter type: initial encounter Qualified Code(s): M80.00XA - Age-related osteoporosis with current pathological fracture, unspecified site, initial encounter for fracture (10) CKD (chronic kidney disease) stage 4, GFR 15-29 ml/min Current Visit: Yes Status: Chronic Assessment and plan: Pt with chronic Stage CKD. CLAU due to poor po intake and dehydration. Pt was given IVF and renal function has improved. Avoid nephrotoxins Monitor labs and vitals. (11) Hx of fall Current Visit: Yes Status: Chronic Assessment and plan: Pt reports 5-6 falls at home in the last 3 months. Admitted for fall. Fall precautions, bed alarm, up with assist. PT/OT recommend SNF at discharge. (12) Leukocytosis Current Visit: Yes Status: Acute Assessment and plan: Improving 21.3 today. Urine negative for infection, CXR negative. Blood cultures x 2 pending. Unknown source at this time, likely reactive. Continue IV antibiotics. Continue to monitor labs and vitals. Pt is afebrile, normotensive, and without tachycardia. Pt does not meet SIRS or sepsis criteria currently. Qualifiers: Leukocytosis type: unspecified Qualified Code(s): D72.829 - Elevated white blood cell count, unspecified (13) Right shoulder pain Current Visit: Yes Status: Acute Assessment and plan: Pt with right shoulder pain s/p fall athome. No fracture or dislocation. Continue pain medication PT/OT. Shoulder X-Ray 08/01/17 18:50 IMPRESSION: No acute fracture or malalignment. D/ / Lamont Guido / Lamont Guido Interpreting Provider: Lamont Guido Acute right shoulder pain d/t fall sustained approx. 1 week ago. PCP @ [address] as "frozen shoulder". XR of right shoulder ordered. Stair-step pain medications. Pain mgmt consult ordered. Qualifiers: Chronicity: acute Qualified Code(s): M25.511 - Pain in right shoulder (14) Pulmonary nodule Current Visit: Yes Status: Acute Assessment and plan: Follow with primary care. Follow-up chest CT in 12 months. Abdomen/Pelvis CT 08/01/17 11:25 IMPRESSION: 1. Acute moderate superior endplate compression fracture of T10 with 50% vertebral body height loss. 2. Acute mild superior endplate compression fracture of T12 with 20% vertebral body height loss. 3. Acute mild superior endplate compression fracture of T8 with 10% vertebral body height loss. 4. Nondisplaced left transverse process fracture at L1. 5. No acute traumatic abnormality in the chest. Soft tissue edema in the right axilla is likely posttraumatic. No evidence of rib fracture. 6. Acute-subacute nondisplaced sacrococcygeal fracture. 7. No acute abnormality in the abdomen or pelvis on the noncontrast CT. 8. Multiple scattered pulmonary nodules measuring up to 5 mm in size, new compared to 2009. Follow-up chest CT recommended in 12 months. RECOMMENDATIONS: Fleischner Society guidelines for follow-up and management of incidentally detected pulmonary nodules: Multiple Solid Nodules: Nodule size less than 6 mm In a low-risk patient, no routine follow-up. In a high-risk patient, optional CT at 12 months. - Low risk patients include individuals with minimal or absent history of smoking and other known risk factors. - High risk patients include individuals with a history or smoking or known risk factors. Radiology 2017 http://pubs.rsna.org/doi/full/10.1148/radiol.[email or web address] D/ / 08/01/2017 12:53:13 Judd Dukes MD / earnold Interpreting Provider: Judd Dukes MD - Time Spent With Patient Total time spent is greater than 50% in coordination of care (as documented) at patient's floor/unit and/or counseling patient: - Constitutional Vitals: Temp Pulse Resp BP Pulse Ox 98.3 F 63 14 151/74 95 08/02/17 11:12 08/02/17 11:12 08/02/17 11:12 08/02/17 11:12 08/02/17 11:12 General appearance: Present: cooperative, mild distress (Mouth pain from fall), A&O X 3, pleasant, no acute distress, answers questions appropriately - Head Head exam: Present: normal inspection, normocephalic. Absent: atraumatic - Eye Eye exam: Present: normal appearance, conjuntiva pink, sclera anicteric - Neck Neck exam general surgery: Present: supple, trachea midline. Absent: lymphadenopathy, tenderness - Respiratory Respiratory exam: Present: CTAB. Absent: accessory muscle use, rales, rhonchi, wheezes - Cardiovascular Cardiovascular exam: Present: RRR, +S1, +S2. Absent: diastolic murmur, gallop, rubs, systolic murmur - GI/Abdominal GI/Abdominal exam: Present: normal bowel sounds, soft. Absent: distended, hepatomegaly, tenderness - Extremities Exam Extremities exam: Present: normal capillary refill, normal inspection, warm, radial pulses palpable and symmetrical. Absent: calf tenderness, cyanotic, pedal edema, tenderness - Neurological Exam Neurological exam: Present: alert, oriented X3, no focal deficits. Absent: facial droop, speech deficit - Skin Skin exam: Present: dry, intact, normal color, warm. Absent: rash Internal Medicine: Result - Labs CBC & Chem 7: 08/02/17 04:07 08/02/17 04:07 Labs: Short CBC 08/02/17 Range/Units 04:07 WBC 21.3 H (4.3-11.1) K/mcL Hgb 10.4 L (11.5-15.4) g/dL Hct 31.3 L (35.3-44.9) % Plt Count 139 L (140-400) K/mcL Neutrophils # 17.5 H (1.6-8.9) K/mcL BMP 08/02/17 04:07 Sodium 136 Potassium 4.0 Chloride 103 Carbon Dioxide 29 BUN 36 H Creatinine 1.65 H Glucose 161 H Calcium 8.3 L Liver Function 08/02/17 Range/Units 04:07 Total Bilirubin 0.7 (0.3-1.0) mg/dL AST 15 (13-39) Units/L ALT 30 (7-52) Units/L Alkaline Phosphatase 55 (34-104) Units/L Albumin 2.7 L (3.5-5.7) g/dL - Impressions Impressions Shoulder X-Ray 08/01/17 18:50 IMPRESSION: No acute fracture or malalignment. D/ / Lamont Guido / Lamont Guido Interpreting Provider: Lamont Guido Consult Discharge Plan - Plan Referrals: NONE,PCP [Primary Care Provider] -
[2017-08-02] MEDS: Aspirin Enteric Coated 81 MG Tablet PO SCH (20:15)
[2017-08-03] MEDS: MetroNIDAZOLE 500 MG/100 ML 500 MG/100 ML BAG IVPB SCH ×4 (00:05→17:23)
[2017-08-03] MEDS: *HR* HYDROcodone/Acet 5/325 mg TABLET PO PRN ×2 (03:32→22:17)
[2017-08-03 05:17] LABS: Basophils # 0.1 K/mcL (0.0-0.2); Basophils % 0.3 %; Eosinophils # 0.1 K/mcL (0.0-0.6); Eosinophils % 0.5 %; Hematocrit 33.9 % (35.3-44.9); Hemoglobin 10.9 g/dL (11.5-15.4); Immature Granulocytes % 2.6 % (0-4); Lymphocytes # 1.4 K/mcL (0.6-4.6); Lymphocytes % 8.1 %; Mean Corpuscular HGB Conc 32.2 g/dL (31.6-35.5); Mean Corpuscular Hemoglobin 30.9 pg (28.0-33.3); Mean Platelet Volume 11.8 fL (9.4-12.4); Monocytes # 1.3 K/mcL (0.0-1.3); Monocytes % 7.3 %; Neutrophils # 14.2 K/mcL (1.6-8.9); Platelet Count 130 K/mcL (140-400); Red Blood Count 3.53 M/mcL (3.82-4.97); Red Cell Distribution Width 14.8 % (11.5-14.5); Segmented Neutrophils % 81.2 %
[2017-08-03 05:45] LABS: Albumin 2.8 g/dL (3.5-5.7); Albumin/Globulin Ratio 1.2 (1.1-2.2); Bilirubin,Total 0.6 mg/dL (0.3-1.0); Calcium 9.1 mg/dL (8.6-10.3); Globulin 2.3 g/dL (2.4-3.5); Potassium 4.3 mEq/L (3.5-5.1); Total Protein 5.1 g/dL (6.4-8.9)
[2017-08-03] MEDS: Pantoprazole 40 MG VIAL IVP SCH (08:59)
[2017-08-03] MEDS: Insulin LISPRO 300 UNITS/3 ML VIAL SQ SCH ×4 (08:59→20:31)
[2017-08-03] MEDS: amLODIPine 5 MG TABLET PO SCH (09:00)
[2017-08-03] MEDS: Cholecalciferol (D-3) 1,000 UNIT TABLET PO SCH (09:00)
[2017-08-03] MEDS: Nystatin POWDER 30 GM BOTTLE TP SCH ×3 (09:00→20:23)
[2017-08-03] MEDS: FLUoxetine 20 MG CAPSULE PO SCH (09:00)
[2017-08-03] MEDS: BuPROPion SR (12 HR) 100 MG TABLET PO SCH ×2 (09:00→20:23)
[2017-08-03] MEDS: predniSONE 1 MG TABLET PO SCH (09:00)
[2017-08-03] MEDS: Propranolol LA (24 HR) 60 MG CAP.SA.24H PO SCH (09:00)
[2017-08-03] MEDS ORDERED: Sennosides/Docusate Sodium TABLET PO PRN (09:49)
[2017-08-03] MEDS: 0.9 % Sodium Chloride 1,000 ML IVC SCH (12:19)
--- NOTE | 2017-08-03 14:49 | Internal Med Progress Note ---
Date of Encounter: 08/03/17 Time of Encounter: 09:30 - Assessment and plan (1) Dehydration Current Visit: Yes Status: Acute Assessment and plan: Monitor labs and vitals. Pt appears to be well hydrated and is eating and drinking well. (2) Thoracic spine fracture Current Visit: Yes Status: Acute Assessment and plan: Pt has brace that was fitted by Dr. Ambriz. Pt has been wearing for PT. Pt states that pain is well controlled. PT/OT at [facility] after discharge, waiting on placement on Saturday. Monitor for falls and safety. Qualifiers: Encounter type: subsequent encounter Thoracic vertebra fracture level: T10 Fracture type: closed Fracture morphology: unspecified fracture morphology Fracture healing: with routine healing Qualified Code(s): S22.079D - Unspecified fracture of T9-T10 vertebra, subsequent encounter for fracture with routine healing (3) Facial injury Current Visit: Yes Status: Acute Assessment and plan: Facial injury s/p fall at home. Large hematoma to right upper lip with intact sutures. Sutures out in 7-10 days. Denies LOC at time of incident. Watch for signs of infection/bleeding. Qualifiers: Encounter type: initial encounter Qualified Code(s): S09.93XA - Unspecified injury of face, initial encounter (4) Diabetes Current Visit: Yes Status: Chronic Assessment and plan: Uncontrolled. A1c 8.8%. Continue SSI, accucheck achs, diabetic diet. 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 BP above goal, Norvasc 5mg po daily added. Continue to monitor. Qualifiers: Hypertension type: essential hypertension Qualified Code(s): I10 - Essential (primary) hypertension (6) HLD (hyperlipidemia) Current Visit: Yes Status: Chronic Assessment and plan: Chronic. Continue low dose of Lipitor. Lipid panel wNL . Qualifiers: Hyperlipidemia type: pure hypercholesterolemia Qualified Code(s): E78.00 - Pure hypercholesterolemia, unspecified; E78.0 - Pure hypercholesterolemia (7) COPD (chronic obstructive pulmonary disease) Current Visit: Yes Status: Chronic Assessment and plan: No acute exacerbation. Lungs clear and diminished, no acute respiratory failure or distress. Continue home medications Continue telemetry 02 if needed to maintain sats > 92% Qualifiers: COPD type: emphysema Emphysema type: unspecified Qualified Code(s): J43.9 - Emphysema, unspecified (8) Osteoporosis Current Visit: Yes Status: Chronic Assessment and plan: Chronic. Continue home medications. Qualifiers: Osteoporosis type: unspecified Presence of current pathological fracture: with current pathological fracture Encounter type: initial encounter Qualified Code(s): M80.00XA - Age-related osteoporosis with current pathological fracture, unspecified site, initial encounter for fracture (9) CKD (chronic kidney disease) stage 4, GFR 15-29 ml/min Current Visit: Yes Status: Chronic Assessment and plan: Pt with chronic Stage CKD. REnal function is improving with IVF. Pt is drinking well. Will start IVF again if necessary. Avoid nephrotoxins Monitor labs and vitals. (10) Hx of fall Current Visit: Yes Status: Chronic Assessment and plan: Fall precautions, bed alarm, up with assist. PT/OT recommend SNF at discharge. (11) Leukocytosis Current Visit: Yes Status: Acute Assessment and plan: Improving. 17.5 today. Urine negative for infection, CXR negative. Blood culture negative Unknown source at this time, likely reactive. Continue IV antibiotics. Continue to monitor labs and vitals. Pt is afebrile, normotensive, and without tachycardia. Qualifiers: Leukocytosis type: unspecified Qualified Code(s): D72.829 - Elevated white blood cell count, unspecified (12) Right shoulder pain Current Visit: Yes Status: Acute Assessment and plan: Pt states that pain is controlled, denies need for more pain medication. Continue pain medication PT/OT. Shoulder X-Ray 08/01/17 18:50 IMPRESSION: No acute fracture or malalignment. D/ / Lamont Guido / Lamont Guido Interpreting Provider: Lamont Guido Qualifiers: Chronicity: acute Qualified Code(s): M25.511 - Pain in right shoulder (13) Pulmonary nodule Current Visit: Yes Status: Acute Assessment and plan: Follow with primary care. Follow-up chest CT in 12 months. Pt without SOB, chest pain, or acute respiratory failure. Abdomen/Pelvis CT 08/01/17 11:25 IMPRESSION: 1. Acute moderate superior endplate compression fracture of T10 with 50% vertebral body height loss. 2. Acute mild superior endplate compression fracture of T12 with 20% vertebral body height loss. 3. Acute mild superior endplate compression fracture of T8 with 10% vertebral body height loss. 4. Nondisplaced left transverse process fracture at L1. 5. No acute traumatic abnormality in the chest. Soft tissue edema in the right axilla is likely posttraumatic. No evidence of rib fracture. 6. Acute-subacute nondisplaced sacrococcygeal fracture. 7. No acute abnormality in the abdomen or pelvis on the noncontrast CT. 8. Multiple scattered pulmonary nodules measuring up to 5 mm in size, new compared to 2009. Follow-up chest CT recommended in 12 months. RECOMMENDATIONS: Fleischner Society guidelines for follow-up and management of incidentally detected pulmonary nodules: Multiple Solid Nodules: Nodule size less than 6 mm In a low-risk patient, no routine follow-up. In a high-risk patient, optional CT at 12 months. - Low risk patients include individuals with minimal or absent history of smoking and other known risk factors. - High risk patients include individuals with a history or smoking or known risk factors. Radiology 2017 http://pubs.rsna.org/doi/full/10.1148/radiol.[email or web address] D/ / 08/01/2017 12:53:13 Judd Dukes MD / earno Interpreting Provider: Judd Dukes MD (14) DVT prophylaxis Current Visit: Yes Status: Acute Assessment and plan: Bilateral SCDs on LEs for DVT prophylaxis ordered. Pt without continued bleeding. Head CT s/p fall shows no acute intracrainal hemorrhage. Lovenox 40mg SQ daily. - Time Spent With Patient Total time spent is greater than 50% in coordination of care (as documented) at patient's floor/unit and/or counseling patient: - Subjective Interval history: Pt was seen and assessed at bedside at 0930. Pt is alert, awake, oriented, pleasant. Granddaughter at bedside. Pt is agreeable to going to SNF for rehab. She denies headache, vision changes, n/v, neck pain, confusion, abd pain, and states that her shoulder pain has improved, now rates 2/10 today. She denies need for other pain medications. - Constitutional Vitals: Temp Pulse Resp BP Pulse Ox 98.2 F 59 14 169/84 95 08/03/17 10:57 08/03/17 10:57 08/03/17 10:57 08/03/17 10:57 08/03/17 10:57 General appearance: Present: cooperative, mild distress (Mouth pain from fall), A&O X 3, pleasant, no acute distress, answers questions appropriately - Head Head exam: Present: atraumatic, normal inspection, normocephalic - Eye Eye exam: Present: normal appearance, conjuntiva pink, sclera anicteric - Neck Neck exam general surgery: Present: normal inspection, supple, trachea midline. Absent: lymphadenopathy, tenderness - Respiratory Respiratory exam: Present: CTAB. Absent: accessory muscle use, rales, rhonchi, wheezes - Cardiovascular Cardiovascular exam: Present: RRR, +S1, +S2. Absent: diastolic murmur, gallop, rubs, systolic murmur - GI/Abdominal GI/Abdominal exam: Present: normal bowel sounds, soft, no peritoneal signs. Absent: distended, hepatomegaly, tenderness - Extremities Exam Extremities exam: Present: normal capillary refill, normal inspection, warm, radial pulses palpable and symmetrical. Absent: calf tenderness, cyanotic, pedal edema - Neurological Exam Neurological exam: Present: alert, oriented X3. Absent: facial droop, speech deficit - Skin Skin exam: Present: dry, intact, normal color, warm. Absent: rash Internal Medicine: Result - Labs CBC & Chem 7: 08/03/17 04:22 08/03/17 04:22 Labs: Short CBC 08/03/17 Range/Units 04:22 WBC 17.5 H (4.3-11.1) K/mcL Hgb 10.9 L (11.5-15.4) g/dL Hct 33.9 L (35.3-44.9) % Plt Count 130 L (140-400) K/mcL Neutrophils # 14.2 H (1.6-8.9) K/mcL BMP 08/03/17 04:22 Sodium 138 Potassium 4.3 Chloride 105 Carbon Dioxide 27 BUN 28 H Creatinine 1.55 H Glucose 163 H Calcium 9.1 Liver Function 08/03/17 Range/Units 04:22 Total Bilirubin 0.6 (0.3-1.0) mg/dL AST 18 (13-39) Units/L ALT 29 (7-52) Units/L Alkaline Phosphatase 59 (34-104) Units/L Albumin 2.8 L (3.5-5.7) g/dL Consult Discharge Plan - Plan Referrals: NONE,PCP [Primary Care Provider] -
[2017-08-03] MEDS: Aspirin Enteric Coated 81 MG Tablet PO SCH (20:23)
[2017-08-04] MEDS ORDERED: metroNIDAZOLE 500 MG TABLET PO ONE (00:20)
[2017-08-04] MEDS: MetroNIDAZOLE 500 MG/100 ML 500 MG/100 ML BAG IVPB SCH ×3 (00:20→12:52)
[2017-08-04] MEDS ORDERED: hydrALAZINE 25 MG TABLET PO ONE ×2 (03:52→14:14)
[2017-08-04 05:34] LABS: Basophils # 0.1 K/mcL (0.0-0.2); Basophils % 0.4 %; Eosinophils # 0.2 K/mcL (0.0-0.6); Eosinophils % 0.7 %; Hematocrit 35.2 % (35.3-44.9); Hemoglobin 11.7 g/dL (11.5-15.4); Immature Granulocytes % 3.1 % (0-4); Lymphocytes # 1.6 K/mcL (0.6-4.6); Lymphocytes % 7.5 %; Mean Corpuscular HGB Conc 33.2 g/dL (31.6-35.5); Mean Corpuscular Hemoglobin 31.5 pg (28.0-33.3); Mean Corpuscular Volume 94.6 fL (83.0-100.0); Mean Platelet Volume 11.5 fL (9.4-12.4); Monocytes # 1.7 K/mcL (0.0-1.3); Monocytes % 8.2 %; Platelet Count 151 K/mcL (140-400); Red Blood Count 3.72 M/mcL (3.82-4.97); Red Cell Distribution Width 14.6 % (11.5-14.5); Segmented Neutrophils % 80.1 %
[2017-08-04 05:50] LABS: Albumin 2.9 g/dL (3.5-5.7); Albumin/Globulin Ratio 1.2 (1.1-2.2); Bilirubin,Total 0.7 mg/dL (0.3-1.0); Calcium 9.9 mg/dL (8.6-10.3); Globulin 2.4 g/dL (2.4-3.5); Potassium 4.6 mEq/L (3.5-5.1); Total Protein 5.3 g/dL (6.4-8.9)
[2017-08-04] MEDS: *HR* Enoxaparin 30 MG/0.3 ML SYRINGE SQ SCH (06:22)
[2017-08-04] MEDS: FLUoxetine 20 MG CAPSULE PO SCH (08:03)
[2017-08-04] MEDS: Propranolol LA (24 HR) 60 MG CAP.SA.24H PO SCH (08:03)
[2017-08-04] MEDS: predniSONE 1 MG TABLET PO SCH (08:03)
[2017-08-04] MEDS: BuPROPion SR (12 HR) 100 MG TABLET PO SCH ×2 (08:03→20:41)
[2017-08-04] MEDS: Cholecalciferol (D-3) 1,000 UNIT TABLET PO SCH (08:03)
[2017-08-04] MEDS: amLODIPine 5 MG TABLET PO SCH (08:03)
[2017-08-04] MEDS: Insulin LISPRO 300 UNITS/3 ML VIAL SQ SCH ×4 (08:04→20:48)
[2017-08-04] MEDS: Pantoprazole 40 MG VIAL IVP SCH (08:08)
[2017-08-04] MEDS: Nystatin POWDER 30 GM BOTTLE TP SCH ×3 (08:20→20:49)
[2017-08-04 11:06] LABS: Bilirubin,Urine Negative (Negative); Blood,Urine Negative (Negative); Clarity,Urine Clear (Clear); Color,Urine Yellow (Yellow); Glucose,Urine (UA) 100 mg/dL (Normal); Ketones,Urine Negative (Negative); Leukocyte Esterase,Urine Negative (Negative); Nitrite,Urine Negative (Negative); Protein,Urine 100 mg/dL (Neg-Trace); Specific Gravity,Urine 1.017 (1.010-1.025); Urobilinogen,Urine Normal (Normal)
[2017-08-04 11:08] LABS: Bacteria,Urine None Seen per hpf (None-Few); Hyaline Casts,Urine None Seen per lpf (None-Few); RBC,Urine 0-3 per hpf (0-3); Squamous Epithelial Cell,Urine Moderate per lpf (None-Few); WBC,Urine 0-3 per hpf (0-3)
--- NOTE | 2017-08-04 14:01 | Internal Med Progress Note ---
Date of Encounter: 08/04/17 Time of Encounter: 09:15 - Assessment and plan (1) Dehydration Current Visit: Yes Status: Acute Assessment and plan: Monitor labs and vitals. Labs are stable and WNL currently, but due to her altered mental status, she does not appear to be drinking as well as she had been . Will restart IVF and continue to monitor pts labs and vitals. (2) Thoracic spine fracture Current Visit: Yes Status: Acute Assessment and plan: Wear brace at all times. Pt states that pain is well controlled. PT/OT ECF after discharge, waiting on placement on Saturday. Monitor for falls and safety. Qualifiers: Encounter type: subsequent encounter Thoracic vertebra fracture level: T10 Fracture type: closed Fracture morphology: unspecified fracture morphology Fracture healing: with routine healing Qualified Code(s): S22.079D - Unspecified fracture of T9-T10 vertebra, subsequent encounter for fracture with routine healing (3) Facial injury Current Visit: Yes Status: Acute Assessment and plan: Facial injury s/p fall at home. Large hematoma to right upper lip, now extending into chin area, with intact sutures to upper lip. Sutures out in 7-10 days. Denies LOC at time of incident. Watch for signs of infection/bleeding. Qualifiers: Encounter type: initial encounter Qualified Code(s): S09.93XA - Unspecified injury of face, initial encounter (4) Diabetes Current Visit: Yes Status: Chronic Assessment and plan: Continue SSI, accucheck achs, diabetic diet. 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 BP above goal, Norvasc 5mg po daily added, little to no effect. Will increase to 10mg tomorrow a.m. Hydralazine 10mg IV q6hr prn SPB > 180, DBP > 100. Pt currently has no IV access. Will order one time dose of Hydralazine 25mg po. Continue to monitor. Qualifiers: Hypertension type: essential hypertension Qualified Code(s): I10 - Essential (primary) hypertension (6) HLD (hyperlipidemia) Current Visit: Yes Status: Chronic Assessment and plan: Chronic. Continue statin. Qualifiers: Hyperlipidemia type: pure hypercholesterolemia Qualified Code(s): E78.00 - Pure hypercholesterolemia, unspecified; E78.0 - Pure hypercholesterolemia (7) COPD (chronic obstructive pulmonary disease) Current Visit: Yes Status: Chronic Assessment and plan: No acute exacerbation. Lungs clear and diminished, no acute respiratory distress. Continue telemetry 02 if needed to maintain sats > 92% Qualifiers: COPD type: emphysema Emphysema type: unspecified Qualified Code(s): J43.9 - Emphysema, unspecified (8) Osteoporosis Current Visit: Yes Status: Chronic Assessment and plan: Continue home medications. Qualifiers: Osteoporosis type: unspecified Presence of current pathological fracture: with current pathological fracture Encounter type: initial encounter Qualified Code(s): M80.00XA - Age-related osteoporosis with current pathological fracture, unspecified site, initial encounter for fracture (9) CKD (chronic kidney disease) stage 4, GFR 15-29 ml/min Current Visit: Yes Status: Chronic Assessment and plan: 1. Pt with chronic Stage CKD. REnal function is improving with IVF. Avoid nephrotoxins Monitor labs and vitals. (10) Hx of fall Current Visit: Yes Status: Chronic Assessment and plan: Fall precautions, bed alarm, up with assist only. PT/OT recommend SNF at discharge. (11) Leukocytosis Current Visit: Yes Status: Acute Assessment and plan: INcreased 21.3 today. Blood culture negative. CXR repeated today, possible bilateral parahilar airspace disease could represent pneumonia. Pt is afebrile, hypertensive per history, and without tachycardia. Pt will be started on IV Zithromax and Rocephin Monitor labs and vitals Qualifiers: Leukocytosis type: unspecified Qualified Code(s): D72.829 - Elevated white blood cell count, unspecified (12) Right shoulder pain Current Visit: Yes Status: Acute Assessment and plan: Well controlled. Continue pain medication PT/OT. Shoulder X-Ray 08/01/17 18:50 IMPRESSION: No acute fracture or malalignment. D/ / Lamont Guido / Lamont Guido Interpreting Provider: Lamont Guido Qualifiers: Chronicity: acute Qualified Code(s): M25.511 - Pain in right shoulder (13) Pulmonary nodule Current Visit: Yes Status: Acute Assessment and plan: Follow-up chest CT in 12 months with PCP. Pt without SOB, chest pain, or acute respiratory failure. Abdomen/Pelvis CT 08/01/17 11:25 IMPRESSION: 1. Acute moderate superior endplate compression fracture of T10 with 50% vertebral body height loss. 2. Acute mild superior endplate compression fracture of T12 with 20% vertebral body height loss. 3. Acute mild superior endplate compression fracture of T8 with 10% vertebral body height loss. 4. Nondisplaced left transverse process fracture at L1. 5. No acute traumatic abnormality in the chest. Soft tissue edema in the right axilla is likely posttraumatic. No evidence of rib fracture. 6. Acute-subacute nondisplaced sacrococcygeal fracture. 7. No acute abnormality in the abdomen or pelvis on the noncontrast CT. 8. Multiple scattered pulmonary nodules measuring up to 5 mm in size, new compared to 2009. Follow-up chest CT recommended in 12 months. RECOMMENDATIONS: Fleischner Society guidelines for follow-up and management of incidentally detected pulmonary nodules: Multiple Solid Nodules: Nodule size less than 6 mm In a low-risk patient, no routine follow-up. In a high-risk patient, optional CT at 12 months. - Low risk patients include individuals with minimal or absent history of smoking and other known risk factors. - High risk patients include individuals with a history or smoking or known risk factors. Radiology 2017 http://pubs.rsna.org/doi/full/10.1148/radiol.[email or web address] D/ / 08/01/2017 12:53:13 Judd Dukes MD / ana Interpreting Provider: Judd Dukes MD (14) DVT prophylaxis Current Visit: Yes Status: Acute Assessment and plan: Pt without continued bleeding. Head CT s/p fall shows no acute intracrainal hemorrhage. Lovenox 40mg SQ daily. (15) Confusion Current Visit: Yes Status: Acute Assessment and plan: Pt with acute confusion. Pt was drowsy with slurred speech, unable to stay awake. STates that she was going to put herself into the picture in her room and that I had stolen her water eariler. Stat head CT negative, stat urine negative, stat CXR shows possible bilateral parahilar airspace disease, could represent pneumonia. I reassessed pt later in the afternoon with family at bedside, she has improved somewhat, however, she is better than initial assessment this a.m. Pt with leukocytosis, pneumonia likely cause, also could be cause of pt's confusion. Other labs WNL. Pt was given Ambien last night, as well, could be contributing. It has been discontinued. Continue to monitor for safety and falls Medications as ordered No Ambien or other sedatives while in hospital (16) Pneumonia Current Visit: Yes Status: Acute Assessment and plan: Pt with sudden onset confusion this a.m. Pt also has increased leukocytosis today. She remains afebrile, no tachypenia, hypertensive. Pt on room air. Lungs are clear and diminished, she denies cough, chills, or subjective fever prior to admission. Chest xray shows possible bilateral parahilar airspace disease that could represent pneumonia. CAP pneumonia, likely bacterial. Duonebs q4h Zithromax 500mg IV daily Rocephin 1 gram IV daily Monitor labs and vitals. 02 as needed to maintain sats > 92% Chest X-Ray 08/04/17 11:46 IMPRESSION: Possible bilateral parahilar airspace disease could represent pneumonia. D/ / 08/04/2017 12:51:22 Kali Sierra MD / lgray Interpreting Provider: Kali Sierra MD Qualifiers: Pneumonia type: due to unspecified organism Laterality: bilateral Qualified Code(s): J18.9 - Pneumonia, unspecified organism - Time Spent With Patient Total time spent is greater than 50% in coordination of care (as documented) at patient's floor/unit and/or counseling patient: less than 15 minutes - Subjective Interval history: Pt was seen and assessed at bedside at 0915. Pt was drowsy, confused, speech was slurred. She was unable to stay awake to answer questions and answers inappropriately. She denies headache, vision changes, n/v, neck pain, confusion , abd pain, and states that her shoulder pain has improved. I reassesed pt at about 1330, family at bedside. Pt is more alert, still seems kind of confused and off from her baseline, but better than this morning. All questions were answered and plan of care discussed, family verbalized understanding. - Constitutional Vitals: Temp Pulse Resp BP Pulse Ox 98.3 F 64 15 188/71 95 08/04/17 12:06 08/04/17 12:06 08/04/17 12:06 08/04/17 12:06 08/04/17 12:06 General appearance: Present: cooperative, mild distress (Mouth pain from fall), A&O X 3, pleasant, no acute distress, answers questions appropriately - Head Head exam: Present: atraumatic, normal inspection, normocephalic - Eye Eye exam: Present: normal appearance, conjuntiva pink, sclera anicteric - Neck Neck exam general surgery: Present: supple, trachea midline. Absent: lymphadenopathy - Respiratory Respiratory exam: Present: decreased breath sounds, CTAB. Absent: accessory muscle use, rales, respiratory distress, rhonchi, wheezes - Cardiovascular Cardiovascular exam: Present: RRR, +S1, +S2. Absent: diastolic murmur, gallop, rubs, systolic murmur - GI/Abdominal GI/Abdominal exam: Present: normal bowel sounds, soft. Absent: distended, hepatomegaly, tenderness - Extremities Exam Extremities exam: Present: normal capillary refill, normal inspection, warm, radial pulses palpable and symmetrical. Absent: calf tenderness, cyanotic, pedal edema, tenderness - Neurological Exam Neurological exam: Present: alert, altered, no focal deficits, strengths equal and symetr throughout. Absent: motor sensory deficit, oriented X3, facial droop , speech deficit - Skin Skin exam: Present: dry, intact, normal color, warm. Absent: rash Internal Medicine: Result - Labs CBC & Chem 7: 08/04/17 05:04 08/04/17 05:04 Labs: Short CBC 08/04/17 Range/Units 05:04 WBC 21.3 H (4.3-11.1) K/mcL Hgb 11.7 (11.5-15.4) g/dL Hct 35.2 L (35.3-44.9) % Plt Count 151 (140-400) K/mcL Neutrophils # 17.0 H (1.6-8.9) K/mcL BMP 08/04/17 05:04 Sodium 135 L Potassium 4.6 Chloride 103 Carbon Dioxide 27 BUN 27 H Creatinine 1.28 H Glucose 171 H Calcium 9.9 Liver Function 08/04/17 Range/Units 05:04 Total Bilirubin 0.7 (0.3-1.0) mg/dL AST 20 (13-39) Units/L ALT 28 (7-52) Units/L Alkaline Phosphatase 60 (34-104) Units/L Albumin 2.9 L (3.5-5.7) g/dL Urine 08/04/17 Range/Units 10:49 Urine Color Yellow (Yellow) Urine Clarity Clear (Clear) Urine pH 6.0 (5.0-8.0) pH Units Ur Specific [place] 1.017 (1.010-1.025) Urine Protein 100 H (Neg-Trace) mg/dL Urine Glucose (UA) 100 H (Normal) mg/dL - Impressions Impressions Head CT 08/04/17 09:24 IMPRESSION: 1. Motion limits evaluation. 2. No convincing acute intracranial abnormality. 3. Global parenchymal volume loss with chronic microvascular ischemic change. 4. Atherosclerosis. D/ / Alexi Schrader MD / Alexi Schrader MD Interpreting Provider: Alexi Schrader MD Chest X-Ray 08/04/17 11:46 IMPRESSION: Possible bilateral parahilar airspace disease could represent pneumonia. D/ / 08/04/2017 12:51:22 Kali Sierra MD / denis Interpreting Provider: Kali Sierra MD Consult Discharge Plan - Plan Referrals: NONE,PCP [Primary Care Provider] -
[2017-08-04] MEDS ORDERED: Ipratropium/Albuterol Neb 3 ML IH PRN (14:21)
[2017-08-04] MEDS: cefTRIAXone 1,000 MG in Water for inj. (sterile) 20 ML 10 ML IVP SCH (14:51)
[2017-08-04] MEDS: Azithromycin 500 MG in D5% in Water 250 ML IVPB SCH (14:51)
[2017-08-04] MEDS: 0.9 % Sodium Chloride 1,000 ML IVC SCH (14:52)
[2017-08-04] MEDS: *HR* HYDROcodone/Acet 5/325 mg TABLET PO PRN (15:45)
[2017-08-04] MEDS: Aspirin Enteric Coated 81 MG Tablet PO SCH (20:41)
[2017-08-05 05:04] LABS: Basophils # 0.1 K/mcL (0.0-0.2); Basophils % 0.3 %; Eosinophils # 0.2 K/mcL (0.0-0.6); Eosinophils % 1.1 %; Hematocrit 34.2 % (35.3-44.9); Hemoglobin 11.4 g/dL (11.5-15.4); Immature Granulocytes % 3.3 % (0-4); Lymphocytes # 1.5 K/mcL (0.6-4.6); Lymphocytes % 7.5 %; Mean Corpuscular HGB Conc 33.3 g/dL (31.6-35.5); Mean Corpuscular Hemoglobin 31.1 pg (28.0-33.3); Mean Corpuscular Volume 93.4 fL (83.0-100.0); Mean Platelet Volume 11.7 fL (9.4-12.4); Monocytes # 1.7 K/mcL (0.0-1.3); Monocytes % 8.5 %; Neutrophils # 15.9 K/mcL (1.6-8.9); Platelet Count 136 K/mcL (140-400); Red Blood Count 3.66 M/mcL (3.82-4.97); Red Cell Distribution Width 14.7 % (11.5-14.5); Segmented Neutrophils % 79.3 %
[2017-08-05] MEDS: *HR* Enoxaparin 30 MG/0.3 ML SYRINGE SQ SCH (05:20)
[2017-08-05 05:25] LABS: Albumin 2.8 g/dL (3.5-5.7); Albumin/Globulin Ratio 1.2 (1.1-2.2); Bilirubin,Total 0.8 mg/dL (0.3-1.0); Calcium 9.9 mg/dL (8.6-10.3); Globulin 2.4 g/dL (2.4-3.5); Total Protein 5.2 g/dL (6.4-8.9)
[2017-08-05] MEDS: predniSONE 1 MG TABLET PO SCH (08:47)
[2017-08-05] MEDS: amLODIPine 5 MG TABLET PO SCH (08:48)
[2017-08-05] MEDS: BuPROPion SR (12 HR) 100 MG TABLET PO SCH ×2 (08:48→21:39)
[2017-08-05] MEDS: FLUoxetine 20 MG CAPSULE PO SCH (08:48)
[2017-08-05] MEDS: Cholecalciferol (D-3) 1,000 UNIT TABLET PO SCH (08:48)
[2017-08-05] MEDS: Propranolol LA (24 HR) 60 MG CAP.SA.24H PO SCH (08:48)
[2017-08-05] MEDS: cefTRIAXone 1,000 MG in Water for inj. (sterile) 20 ML 10 ML IVP SCH (08:48)
[2017-08-05] MEDS: Pantoprazole 40 MG VIAL IVP SCH (08:48)
[2017-08-05] MEDS: Nystatin POWDER 30 GM BOTTLE TP SCH ×3 (08:49→21:47)
[2017-08-05] MEDS: Insulin LISPRO 300 UNITS/3 ML VIAL SQ SCH ×4 (08:49→22:16)
[2017-08-05] MEDS ORDERED: Furosemide 20 MG TABLET PO SCH (09:00)
[2017-08-05] MEDS: 0.9 % Sodium Chloride 1,000 ML IVC SCH (12:35)
--- NOTE | 2017-08-05 14:16 | Pain Management Progress Note ---
Date of Encounter: 08/05/17 Time of Encounter: 14:14 - Assessment and Plan (1) Compression deformity of vertebra Current Visit: Yes Status: Acute Continue conservative care. She should have a follow up visit with the spine center if pain from the fracture sites does not go away. Recommend screening for osteoporosis if not already done. Consider bisphosphonate or prolia therapy if DEXA shows osteoporosis. Non-opioid analgesics are best during rehab. Call with any questions. Subjective Narrative: Rosa states she is feeling little pain. Pain score is about 2/10. Little pain while resting in bed. Pain does increase when she stands and walks, but pain does not limit her walking ability. She feels overall weak which is why she has trouble walking. Denies pain radiating into legs. Pain is aching, centered in lower back. No pain in abdomen. Objective Vital Signs - Last 8 Hours Temp Pulse Resp BP Pulse Ox 08/05/17 11:25 98.5 F 74 17 106/64 93 08/05/17 07:18 98.7 F 62 16 187/80 92 Intake and Output 08/04/17 08/05/17 08/05/17 23:59 07:59 15:59 Intake Total 1000 / 1000 Balance 1000 / 1000 Intake: IV Fluids 1000 / 1000 0.9 % Sodium Chloride 1,000 ML 1000 / 1000 @ 60 mls/hr IVC .[id number] ALISIA Rx #:[id number] Other: # Voids 1 # Urine Diapers 1 2 Weight 68.9 kg Blood Glucose* 88 131 169 - General physical appearance no pain - Eyes PERRL, normal ocular movement - ENT no hearing loss - Respiratory normal expansion - Cardiovascular Cardiovascular exam: Present: RRR - Abdomen Abdomen: Present: soft - Neurologic other (straight leg raise negative, myotomes all 5/5 in LE/s, no sensory loss in LE/s) - Musculoskeletal other (mild pain with palpation of midline lower thoracic spine, not severe.) - Labs 08/05/17 03:55 08/05/17 03:55 Diabetes panel 08/05/17 Range/Units 03:55 Sodium 135 L (136-145) mEq/L Potassium 4.0 (3.5-5.1) mEq/L Chloride 101 (98-107) mEq/L Carbon Dioxide 26 (23-29) mEq/L BUN 21 (8-23) mg/dL Creatinine 1.12 (0.60-1.20) mg/dL Glucose 117 H (70-105) mg/dL Calcium 9.9 (8.6-10.3) mg/dL AST 18 (13-39) Units/L ALT 25 (7-52) Units/L Alkaline Phosphatase 54 (34-104) Units/L Albumin 2.8 L (3.5-5.7) g/dL Calcium panel 08/05/17 Range/Units 03:55 Calcium 9.9 (8.6-10.3) mg/dL Albumin 2.8 L (3.5-5.7) g/dL Pituitary panel 08/05/17 Range/Units 03:55 Sodium 135 L (136-145) mEq/L Potassium 4.0 (3.5-5.1) mEq/L Chloride 101 (98-107) mEq/L Carbon Dioxide 26 (23-29) mEq/L BUN 21 (8-23) mg/dL Creatinine 1.12 (0.60-1.20) mg/dL Glucose 117 H (70-105) mg/dL Calcium 9.9 (8.6-10.3) mg/dL Adrenal panel 08/05/17 Range/Units 03:55 Sodium 135 L (136-145) mEq/L Potassium 4.0 (3.5-5.1) mEq/L Chloride 101 (98-107) mEq/L Carbon Dioxide 26 (23-29) mEq/L BUN 21 (8-23) mg/dL Creatinine 1.12 (0.60-1.20) mg/dL Glucose 117 H (70-105) mg/dL Calcium 9.9 (8.6-10.3) mg/dL Total Bilirubin 0.8 (0.3-1.0) mg/dL AST 18 (13-39) Units/L ALT 25 (7-52) Units/L Alkaline Phosphatase 54 (34-104) Units/L Albumin 2.8 L (3.5-5.7) g/dL Consult Discharge Plan - Plan Referrals: NONE,PCP [Primary Care Provider] -
[2017-08-05] MEDS: Azithromycin 500 MG in D5% in Water 250 ML IVPB SCH (15:18)
--- NOTE | 2017-08-05 18:49 | Internal Med Progress Note ---
Date of Encounter: 08/05/17 Time of Encounter: 10:00 - Assessment and plan (1) Dehydration Current Visit: Yes Status: Acute Assessment and plan: Monitor labs and vitals. Labs are stable and WNL currently, but due to her altered mental status, she does not appear to be drinking as well as she had been .IVF increased to 75ml/hr. Pt oral mucosa appears dry. (2) Thoracic spine fracture Current Visit: Yes Status: Acute Assessment and plan: Wear brace at all times. Pt states that pain is well controlled. PT/OT ECF after discharge, waiting on placement on Saturday. Monitor for falls and safety. Patient was evaluated by pain management today, recommended conservative care and will follow up with spine center after discharge. All sedating medications have been discontinued including Roxicodone, Redrock, and Ultram. She reports her pain is well controlled, will add Tylenol for pain control. Qualifiers: Encounter type: subsequent encounter Thoracic vertebra fracture level: T10 Fracture type: closed Fracture morphology: unspecified fracture morphology Fracture healing: with routine healing Qualified Code(s): S22.079D - Unspecified fracture of T9-T10 vertebra, subsequent encounter for fracture with routine healing (3) Facial injury Current Visit: Yes Status: Acute Assessment and plan: Facial injury s/p fall at home. Large hematoma to right upper lip, now extending into chin area, with intact sutures to upper lip. Head CT 08/01 negative for acute intracranial abnormality, stable I will to moderate chronic small vessel ischemic changes. Sutures out in 3-7 days from today. Denies LOC at time of incident. Watch for signs of infection/bleeding. Qualifiers: Encounter type: initial encounter Qualified Code(s): S09.93XA - Unspecified injury of face, initial encounter (4) Diabetes Current Visit: Yes Status: Chronic Assessment and plan: Continue SSI, accucheck achs, diabetic diet. A1c 8.8. Qualifiers: Diabetes mellitus type: type 2 Diabetes mellitus fci insulin use: unspecified intermediate manager insulin use status Diabetes mellitus complication status : with kidney complications Diabetes mellitus complication detail: with chronic kidney disease Chronic kidney disease stage: stage 4 (severe) Qualified Code(s): E11.22 - Type 2 diabetes mellitus with diabetic chronic kidney disease; N18.4 - Chronic kidney disease, stage 4 (severe) (5) HTN (hypertension) Current Visit: Yes Status: Chronic Assessment and plan: Chronic. BP above goal, Norvasc 10 mg by mouth daily. Increase to 10 mg today. Hydralazine 10mg IV q6hr prn SPB > 180, DBP > 100. 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 More well-controlled in the morning and afternoon, into evening. Continue to monitor. Qualifiers: Hypertension type: essential hypertension Qualified Code(s): I10 - Essential (primary) hypertension (6) HLD (hyperlipidemia) Current Visit: Yes Status: Chronic Assessment and plan: Chronic. Continue statin. Qualifiers: Hyperlipidemia type: pure hypercholesterolemia Qualified Code(s): E78.00 - Pure hypercholesterolemia, unspecified; E78.0 - Pure hypercholesterolemia (7) COPD (chronic obstructive pulmonary disease) Current Visit: Yes Status: Chronic Assessment and plan: No acute exacerbation. Patient is on room air today. Lungs clear and diminished, no acute respiratory distress. Continue telemetry 02 if needed to maintain sats > 92% Qualifiers: COPD type: emphysema Emphysema type: unspecified Qualified Code(s): J43.9 - Emphysema, unspecified (8) Osteoporosis Current Visit: Yes Status: Chronic Assessment and plan: Continue home medications. Pain management evaluated patient today, recommend workup for osteoporosis after discharge. Qualifiers: Osteoporosis type: unspecified Presence of current pathological fracture: with current pathological fracture Encounter type: initial encounter Qualified Code(s): M80.00XA - Age-related osteoporosis with current pathological fracture, unspecified site, initial encounter for fracture (9) CKD (chronic kidney disease) stage 4, GFR 15-29 ml/min Current Visit: Yes Status: Chronic Assessment and plan: Pt with chronic Stage CKD. REnal function is improving with IVF. Avoid nephrotoxins Monitor labs and vitals. (10) Hx of fall Current Visit: Yes Status: Chronic Assessment and plan: Fall precautions, bed alarm, up with assist only. PT/OT recommend SNF at discharge. [facility], due to current condition, she is not able to be discharged at this time. licensed clinical social worker is aware. (11) Leukocytosis Current Visit: Yes Status: Acute Assessment and plan: Chronically elevated white count, appears to have chronic leukocytosis. Blood culture negative. Urine is negative for signs of infection. CXR repeated, possible bilateral parahilar airspace disease could represent pneumonia. Pt is afebrile, hypertensive per history, and without tachycardia or tachypnea. Patient takes chronic steroids, prednisone 4 mg by mouth daily for fibromyalgia , could cause chronic elevation. Continue IV Zithromax and Rocephin Monitor labs and vitals Qualifiers: Leukocytosis type: unspecified Qualified Code(s): D72.829 - Elevated white blood cell count, unspecified (12) Right shoulder pain Current Visit: Yes Status: Acute Assessment and plan: Well controlled. Continue pain medication. All sedating pain medications have been stopped. PT/OT. Discharge to [facility] when stable. Shoulder X-Ray 08/01/17 18:50 IMPRESSION: No acute fracture or malalignment. D/ / Lamont Guido / Lamont Guido Interpreting Provider: Lamont Guido Qualifiers: Chronicity: acute Qualified Code(s): M25.511 - Pain in right shoulder (13) Pulmonary nodule Current Visit: Yes Status: Acute Assessment and plan: Follow-up chest CT in 12 months with PCP. Abdomen/Pelvis CT 08/01/17 11:25 IMPRESSION: 1. Acute moderate superior endplate compression fracture of T10 with 50% vertebral body height loss. 2. Acute mild superior endplate compression fracture of T12 with 20% vertebral body height loss. 3. Acute mild superior endplate compression fracture of T8 with 10% vertebral body height loss. 4. Nondisplaced left transverse process fracture at L1. 5. No acute traumatic abnormality in the chest. Soft tissue edema in the right axilla is likely posttraumatic. No evidence of rib fracture. 6. Acute-subacute nondisplaced sacrococcygeal fracture. 7. No acute abnormality in the abdomen or pelvis on the noncontrast CT. 8. Multiple scattered pulmonary nodules measuring up to 5 mm in size, new compared to 2009. Follow-up chest CT recommended in 12 months. RECOMMENDATIONS: Fleischner Society guidelines for follow-up and management of incidentally detected pulmonary nodules: Multiple Solid Nodules: Nodule size less than 6 mm In a low-risk patient, no routine follow-up. In a high-risk patient, optional CT at 12 months. - Low risk patients include individuals with minimal or absent history of smoking and other known risk factors. - High risk patients include individuals with a history or smoking or known risk factors. Radiology 2017 http://pubs.[facility]na.org/doi/full/10.1148/radiol.[email or web address] D/ / 08/01/2017 12:53:13 Judd Dukes MD / [facility] Interpreting Provider: Judd Dukes MD (14) DVT prophylaxis Current Visit: Yes Status: Acute Assessment and plan: Pt without continued bleeding. Head CT s/p fall shows no acute intracrainal hemorrhage. Lovenox 40mg SQ daily. (15) Confusion Current Visit: Yes Status: Acute Assessment and plan: Pt with acute confusion. Pt was drowsy with slurred speech, unable to stay awake. STates that she was going to put herself into the picture in her room and that I had stolen her water eariler. Stat head CT negative, stat urine negative, stat CXR shows possible bilateral parahilar airspace disease, could represent pneumonia. Urine is negative for signs of infection, no culture was indicated. Pt with leukocytosis, pneumonia likely cause, or chronic prednisone use, also could be cause of pt's confusion. Other labs WNL. Pt was given Ambien for sleep one night, as well, could be contributing. It has been discontinued. 08/05/17- patient remains confused and drowsy today, she does answer all questions appropriately and her speech is not slurred, though she is slow to respond. Patient has no focal neurological deficits and speech is clear, strengths are strong and equal bilaterally in upper and lower extremities. Pupils are equal and round and reactive to light. Cranial nerves are intact. Patient was taken for MRI: Showed punctate focus of acute infarct and left parietal lobe, no associated hemorrhage. There is parenchymal volume loss and sequela moderate chronic microvascular ischemic changes, there is also a cystic lesion in the subcutaneous tissue of the right lateral face may represent a sebaceous cyst. Neurology was consulted, he does not feel that this is the cause of her symptoms. Metabolic workup has continued. Discussed case with another hospitalist and neurologist, recommended lactic, CK , ammonia, ABG. CK has returned, it is low. Troponin is within normal limits Ambien was stopped. All pain medications have been stopped. Patient was given 0.4 mg of Narcan IV earlier without noticeable change in mentation, however IV had infiltrated. Patient with mild hyponatremia but has not caused her symptoms. Patient's altered mental status tends to wax and wane throughout the day. 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 Medications at been adjusted, though this continues. Continue to monitor for safety and falls No Ambien or other sedatives while in hospital Continue to monitor labs and vitals. (16) Pneumonia Current Visit: Yes Status: Acute Assessment and plan: Pt with sudden onset confusion, see note above. Pt also has leukocytosis. She remains afebrile, no tachypenia, hypertensive. Pt on room air. Lungs are clear and diminished, she denies cough, chills, or subjective fever prior to admission. Chest xray shows possible bilateral parahilar airspace disease that could represent pneumonia. CAP pneumonia, likely bacterial. Duonebs q4h Zithromax 500mg IV daily Rocephin 1 gram IV daily Monitor labs and vitals. 02 as needed to maintain sats > 92% Chest X-Ray 08/04/17 11:46 IMPRESSION: Possible bilateral parahilar airspace disease could represent pneumonia. D/ / 08/04/2017 12:51:22 [facility] MD [facility] Inter[facility] Provider: Kali Sierra MD Qualifiers: Pneumonia type: due to unspecified organism Laterality: bilateral Qualified Code(s): J18.9 - Pneumonia, unspecified organism (17) Acute metabolic encephalopathy Current Visit: Yes Status: Acute Assessment and plan: Plan as above for confusion. - Time Spent With Patient Total time spent is greater than 50% in coordination of care (as documented) at patient's floor/unit and/or counseling patient: 25 - 35 minutes - Subjective Interval history: Pt was seen and assessed at bedside at 1000. Pt was drowsy, slow to respond, however better than yesterday. No focal deficits today. She denies headache, vision changes, n/v, neck pain, confusion, abd pain, and states that her shoulder pain has improved. I reassesed pt at about noon. Pt is more alert, still seems kind of confused and off from her baseline, but better than this morning again. MRI ordered. - Constitutional Vitals: Temp Pulse Resp BP Pulse Ox 97.8 F 66 16 149/79 91 08/05/17 14:59 08/05/17 14:59 08/05/17 14:59 08/05/17 14:59 08/05/17 14:59 General appearance: Present: cooperative, mild distress (Mouth pain from fall), A&O X 3, pleasant, no acute distress, answers questions appropriately - Head Head exam: Present: normocephalic. Absent: atraumatic, normal inspection - Eye Eye exam: Present: EOMI, normal appearance, conjuntiva pink, sclera anicteric. Absent: nystagmus Pupils: Present: PERRL - Neck Neck exam general surgery: Present: normal inspection, supple, trachea midline. Absent: lymphadenopathy, tenderness - Respiratory Respiratory exam: Present: CTAB. Absent: accessory muscle use, chest wall tenderness, rales, respiratory distress, rhonchi, wheezes - Cardiovascular Cardiovascular exam: Present: RRR, +S1, +S2. Absent: diastolic murmur, gallop, irregular rhythm, rubs, systolic murmur - GI/Abdominal GI/Abdominal exam: Present: normal bowel sounds, soft. Absent: distended, hepatomegaly, tenderness - Extremities Exam Extremities exam: Present: normal capillary refill, normal inspection, warm, radial pulses palpable and symmetrical. Absent: calf tenderness, cyanotic, pedal edema, tenderness - Neurological Exam Neurological exam: Present: alert, altered, CN II-XII intact, oriented X3, no focal deficits, strengths equal and symetr throughout. Absent: motor sensory deficit, pronater drift, facial droop, speech deficit - Skin Skin exam: Present: dry, intact, normal color, warm. Absent: rash Internal Medicine: Result - Labs CBC & Chem 7: 08/05/17 03:55 08/05/17 03:55 Labs: Short CBC 08/05/17 Range/Units 03:55 WBC 20.1 H (4.3-11.1) K/mcL Hgb 11.4 L (11.5-15.4) g/dL Hct 34.2 L (35.3-44.9) % Plt Count 136 L (140-400) K/mcL Neutrophils # 15.9 H (1.6-8.9) K/mcL BMP 08/05/17 03:55 Sodium 135 L Potassium 4.0 Chloride 101 Carbon Dioxide 26 BUN 21 Creatinine 1.12 Glucose 117 H Calcium 9.9 Liver Function 08/05/17 Range/Units 03:55 Total Bilirubin 0.8 (0.3-1.0) mg/dL AST 18 (13-39) Units/L ALT 25 (7-52) Units/L Alkaline Phosphatase 54 (34-104) Units/L Albumin 2.8 L (3.5-5.7) g/dL - Impressions Impressions Brain MRI 08/05/17 13:24 IMPRESSION: 1. 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 No associated hemorrhage. 2. Parenchymal volume loss and sequela of moderate chronic microvascular ischemic changes. 3. Cystic lesion in the subcutaneous tissues of the right lateral face may represent sebaceous cyst. Clinical correlation with direct inspection is recommended. The findings were sent to the Radiology Results Communication Center at 5:18 pm on 08/05/2017to be communicated to a licensed caregiver. D/ / 08/05/2017 17:23:09 Quirino Simpson MD / [facility] Interpreting Provider: Quirino Simpson MD Consult Discharge Plan - Plan Referrals: NONE,PCP [Primary Care Provider] -
[2017-08-05] MEDS ORDERED: Acetaminophen/Butalbital/CaffeineTABLET PO ONE (19:18)
[2017-08-05] MEDS: Aspirin Enteric Coated 81 MG Tablet PO SCH (21:39)
[2017-08-05 22:42] LABS: ABG Base Excess 5 mEq/L (-2 to 3); ABG HCO3 29 mEq/L (21-27); ABG Oxygen Saturation 96 % (95-98); ABG PCO2 39 mmHg (35-45); ABG PH 7.47 pH Units (7.32-7.45); ABG PO2 80 mmHg (85-104); ABG TCO2 30 mEq/L (20-26)
[2017-08-06] MEDS: 0.9 % Sodium Chloride 1,000 ML IVC SCH ×3 (04:52→08:43)
[2017-08-06 07:14] LABS: Basophils # 0.1 K/mcL (0.0-0.2); Basophils % 0.3 %; Eosinophils # 0.1 K/mcL (0.0-0.6); Eosinophils % 0.9 %; Hematocrit 35.6 % (35.3-44.9); Hemoglobin 11.3 g/dL (11.5-15.4); Immature Granulocytes % 2.6 % (0-4); Lymphocytes # 1.6 K/mcL (0.6-4.6); Lymphocytes % 10.6 %; Mean Corpuscular HGB Conc 31.7 g/dL (31.6-35.5); Mean Corpuscular Hemoglobin 30.1 pg (28.0-33.3); Mean Corpuscular Volume 94.9 fL (83.0-100.0); Mean Platelet Volume 11.8 fL (9.4-12.4); Monocytes # 1.3 K/mcL (0.0-1.3); Monocytes % 8.3 %; Platelet Count 131 K/mcL (140-400); Red Blood Count 3.75 M/mcL (3.82-4.97); Red Cell Distribution Width 15.1 % (11.5-14.5); Segmented Neutrophils % 77.3 %
[2017-08-06 07:41] LABS: Albumin 2.7 g/dL (3.5-5.7); Albumin/Globulin Ratio 1.3 (1.1-2.2); Bilirubin,Total 0.6 mg/dL (0.3-1.0); Calcium 9.4 mg/dL (8.6-10.3); Globulin 2.1 g/dL (2.4-3.5); Potassium 4.2 mEq/L (3.5-5.1); Total Protein 4.8 g/dL (6.4-8.9)
[2017-08-06] MEDS: cefTRIAXone 1,000 MG in Water for inj. (sterile) 20 ML 10 ML IVP SCH (07:43)
[2017-08-06] MEDS: FLUoxetine 20 MG CAPSULE PO SCH (07:43)
[2017-08-06] MEDS: Pantoprazole 40 MG VIAL IVP SCH (07:44)
[2017-08-06] MEDS: predniSONE 1 MG TABLET PO SCH (07:44)
[2017-08-06] MEDS: Cholecalciferol (D-3) 1,000 UNIT TABLET PO SCH (07:44)
[2017-08-06] MEDS: Propranolol LA (24 HR) 60 MG CAP.SA.24H PO SCH (07:44)
[2017-08-06] MEDS: amLODIPine 5 MG TABLET PO SCH (07:44)
[2017-08-06] MEDS: BuPROPion SR (12 HR) 100 MG TABLET PO SCH (07:44)
[2017-08-06] MEDS: Insulin LISPRO 300 UNITS/3 ML VIAL SQ SCH ×3 (08:39→16:53)
[2017-08-06] MEDS: Nystatin POWDER 30 GM BOTTLE TP SCH ×2 (08:40→14:31)
--- NOTE | 2017-08-06 09:49 | Discharge Summary ---
Orders not resulted at time of discharge: Pending orders 08/07/17 04:00 Basic Metabolic Panel AM 0400 Complete Blood Count [HEME] AM 0400 08/08/17 04:00 Basic Metabolic Panel AM 0400 Complete Blood Count [HEME] AM 0400 Date of Encounter: 08/06/17 Time of Encounter: 09:46 - Discharge Diagnosis (1) Hx of fall Priority: Primary Status: Chronic Assessment and Plan: Recurrent. Evaluated by PT/OT who recommended SNF. Discharge to [facility] on 08/06/2017. (2) Facial injury Priority: Primary Status: Acute Assessment and Plan: secondary to fall as noted above. Large hematoma to right upper lip, extending into chin area, with intact sutures to upper lip. Head CT 08/01 negative for acute intracranial abnormality. Sutures to be removed 08/08/17 Qualifiers: Encounter type: initial encounter Qualified Code(s): S09.93XA - Unspecified injury of face, initial encounter (3) Thoracic spine fracture Priority: Primary Status: Acute Assessment and Plan: Compression Deformity. Evaluated by pain management who recommended TLSO brace at all times while out of bed. Conservative pain management as patient has history encephalopathy with polypharmacy/pain medication. Follow-up with pain management/orthopedic outpatient as surgical repair could be an option if patient does not do well with oral analgesia, bracing and PT Qualifiers: Encounter type: subsequent encounter Thoracic vertebra fracture level: T10 Fracture type: closed Fracture morphology: unspecified fracture morphology Fracture healing: with routine healing Qualified Code(s): S22.079D - Unspecified fracture of T9-T10 vertebra, subsequent encounter for fracture with routine healing (4) Diabetes Priority: Primary Status: Chronic Assessment and Plan: new dx. not on diabetes medication at home. Hgb A1c 8.8%. Recommend continuing SSI at ECF. 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 BP elevated at times during hospitalization. Continue home BP medications. Amlodipine added. BP can be monitored at ECF Qualifiers: Hypertension type: essential hypertension Qualified Code(s): I10 - Essential (primary) hypertension (6) HLD (hyperlipidemia) Priority: Primary Status: Chronic Assessment and Plan: per hx. Continue statin. Qualifiers: Hyperlipidemia type: pure hypercholesterolemia Qualified Code(s): E78.00 - Pure hypercholesterolemia, unspecified; E78.0 - Pure hypercholesterolemia (7) COPD (chronic obstructive pulmonary disease) Priority: Secondary Status: Chronic Assessment and Plan: per hx. no evidence of exacerbation. Qualifiers: COPD type: emphysema Emphysema type: unspecified Qualified Code(s): J43.9 - Emphysema, unspecified (8) Osteoporosis Priority: Secondary Status: Chronic Assessment and Plan: per hx. Cont home medications. Qualifiers: Osteoporosis type: unspecified Presence of current pathological fracture: with current pathological fracture Encounter type: initial encounter Qualified Code(s): M80.00XA - Age-related osteoporosis with current pathological fracture, unspecified site, initial encounter for fracture (9) CKD (chronic kidney disease) stage 4, GFR 15-29 ml/min Priority: Secondary Status: Chronic Assessment and Plan: per hx. Cr at baseline. Avoid nephrotoxic agents as possible. Renal function can be monitored at ECF (10) Leukocytosis Priority: Primary Status: Acute Assessment and Plan: Chronically elevated white count, appears to have chronic leukocytosis. Blood culture negative. UA negative. CXR with possible bilateral pneumonia. Afebrile , no tachycardia or tachypnea. Elevated WBC likely secondary to chronic steroids and now with possible pneumonia. Continue ATB for pneumonia. Recommend repeat CBC within one week at ECF Comments: Appears to be chronic and likely due to steroid use. Afebrile, lactic acid normal. Blood cultures negative. UA not indicative of UTI. CXR with possible bilateral pneumonia however still suspect leukocytosis secondary to chronic steroid use. Continue treating for pneumonia as noted below. CBC can be monitored at ECF. Qualifiers: Leukocytosis type: unspecified Qualified Code(s): D72.829 - Elevated white blood cell count, unspecified (11) Right shoulder pain Priority: Primary Status: Acute Assessment and Plan: Well controlled. Secondary to fall. Continue conservative pain management Qualifiers: Chronicity: acute Qualified Code(s): M25.511 - Pain in right shoulder (12) Pulmonary nodule Priority: Primary Status: Acute Assessment and Plan: Follow-up chest CT in 12 months with PCP. Abdomen/Pelvis CT 08/01/17 11:25 IMPRESSION: 1. Acute moderate superior endplate compression fracture of T10 with 50% vertebral body height loss. 2. Acute mild superior endplate compression fracture of T12 with 20% vertebral body height loss. 3. Acute mild superior endplate compression fracture of T8 with 10% vertebral body height loss. 4. Nondisplaced left transverse process fracture at L1. 5. No acute traumatic abnormality in the chest. Soft tissue edema in the right axilla is likely posttraumatic. No evidence of rib fracture. 6. Acute-subacute nondisplaced sacrococcygeal fracture. 7. No acute abnormality in the abdomen or pelvis on the noncontrast CT. 8. Multiple scattered pulmonary nodules measuring up to 5 mm in size, new compared to 2009. Follow-up chest CT recommended in 12 months. RECOMMENDATIONS: Fleischner Society guidelines for follow-up and management of incidentally detected pulmonary nodules: Multiple Solid Nodules: Nodule size less than 6 mm In a low-risk patient, no routine follow-up. In a high-risk patient, optional CT at 12 months. - Low risk patients include individuals with minimal or absent history of smoking and other known risk factors. - High risk patients include individuals with a history or smoking or known risk factors. Radiology 2017 http://pubs.rsna.org/doi/full/10.1148/[email or web address] D/ / 08/01/2017 12:53:13 Judd Dukes MD / [facility] Interpreting Provider: Judd Dukes MD (13) Confusion Priority: Primary Status: Resolved Assessment and Plan: with acute confusion drowsiness and lethargy this hospitalization. Suspect secondary to sedating medication as incident occurred after receiving Ambien. All sedating medications discontinued and mentation returned to baseline. (14) Pneumonia Priority: Primary Status: Acute Assessment and Plan: CXR with bilateral parahilar airspace disease concerning for pneumonia. Treated with IV ceftriaxone and azithromycin while inpatient. 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 Evaluated by neurology who recommended starting Plavix. Continue home ASA, Plavix added. Qualifiers: CVA mechanism: stenosis Precerebral and cerebral artery: unspecified precerebral artery Qualified Code(s): I63.20 - Cerebral infarction due to unspecified occlusion or stenosis of unspecified precerebral arteries Hospital course: See assessment and plan for Hospital course Discharge discussed with: patient - Time Spent with Patient Total time spent providing and/or coordinating discharge services: - Discharge Medications Prescriptions: Levofloxacin [Levaquin] 750 mg PO DAILY #4 tablet Tramadol HCl [Ultram] 50 mg PO Q8H PRN 7 Days #21 tablet PRN Reason: Moderate Pain Home Medications: Acetaminophen [Tylenol] 650 mg PO Q4H PRN 08/01/17 [History] Aspirin [Lo-Dose Aspirin EC] 81 mg PO HS 08/01/17 [History] BuPROPion SR (12 HR) [Wellbutrin SR] 100 mg PO BID 08/01/17 [History] Calcitriol [Rocaltrol] 0.25 mcg PO DAILY 08/01/17 [History] Cholecalciferol (D-3) [Vitamin D] 1,000 unit PO DAILY 08/01/17 [History] FLUoxetine HCl [Prozac] 80 mg PO DAILY 08/01/17 [History] Ferrous Sulfate [Iron] 325 mg PO HS 08/01/17 [History] Furosemide [Lasix] 20 mg PO MOWEFR 08/01/17 [History] Loperamide HCl [Imodium A-D] 2 mg PO QID PRN 08/01/17 [History] Lovastatin 40 mg PO HS 08/01/17 [History] Mag Hydrox/Al Hydrox/Simeth [Antacid Suspension] 30 ml PO DAILY PRN 08/01/17 [ History] Magnesium Hydroxide [Milk of Magnesia] 30 ml PO DAILY PRN 08/01/17 [History] Nystatin POWDER [Nystop] 1 appl TP TID 08/01/17 [History] Ondansetron [Zofran ODT] 8 mg SL Q8H PRN 08/01/17 [History] Propranolol LA (24 HR) [Inderal LA] 60 mg PO DAILY 08/01/17 [History] Sennosides [Senna] 2 tab PO DAILY PRN 08/01/17 [History] Trospium Chloride 20 mg PO HS 08/01/17 [History] predniSONE [PredniSONE] 4 mg PO DAILY 08/01/17 [History] Clopidogrel [Plavix] 75 mg PO DAILY tablet 08/06/17 [Rx] Levofloxacin [Levaquin] 750 mg PO DAILY #4 tablet 08/06/17 [Rx] Tramadol HCl [Ultram] 50 mg PO Q8H PRN 7 Days #21 tablet 08/06/17 [Rx] amLODIPine [Norvasc] 10 mg PO DAILY tablet 08/06/17 [Rx] Allergies/Adverse Reactions: 3 Allergy/AdvReac Type Severity Reaction Status Date / Time No Known Allergies Allergy Verified 08/01/17 12:37 Date of admission: 08/01/17 17:07 Primary care physician: PCP NONE Consults: 08/01/17 17:12 Consult to Wound Care [CONS] Routine Reason for Consult: Patient sustained fall to the face this morning w/ laceration present on the right side of the mouth. Lip stitched in ED. Please make recommendations for daily wound care. Call Completed: No 08/05/17 17:29 Consult to Neurology [CONS] Routine Consulting Provider: Neurology [facility] Reason for Consult: AMS, MRI positive for CVA. Time Notified: 17:30 Call Completed: Yes 08/06/17 08:04 Consult to Speech Therapy [CONS] Routine Comment: Evaluate, develop and implement POC Reason for Consult: difficulty swallowing Call Completed: Yes Discharging clinician: Sasha Gresham Anticipated date of discharge: 08/06/17 - Constitutional Vitals: Temp Pulse Resp BP Pulse Ox 97.9 F 62 15 184/72 96 08/06/17 06:45 08/06/17 06:45 08/06/17 06:45 08/06/17 06:45 08/06/17 06:45 General appearance: Present: cooperative, A&O X 3, pleasant, no acute distress, answers questions appropriately - Head Head exam: Present: atraumatic, normocephalic Additional comments: right upper lip ecchymosis and laceration. Ecchymosis extending down to right- side of chin - Eye Eye exam: Present: PERRL, conjuntiva pink, sclera anicteric Pupils: Present: PERRL - Neck Neck exam general surgery: Present: supple, trachea midline. Absent: lymphadenopathy - Respiratory Respiratory exam: Present: CTAB. Absent: accessory muscle use, rales, rhonchi, wheezes - Cardiovascular Cardiovascular exam: Present: RRR, +S1, +S2. Absent: diastolic murmur, gallop, rubs, systolic murmur - GI/Abdominal GI/Abdominal exam: Present: normal bowel sounds, soft, no peritoneal signs. Absent: distended, tenderness - Extremities Exam Extremities exam: Present: warm, radial pulses palpable and symmetrical. Absent : calf tenderness, cyanotic, pedal edema - Neurological Exam Neurological exam: Present: CN II-XII intact, oriented X3, no focal deficits. Absent: pronater drift, facial droop, speech deficit - Skin Skin exam: Present: dry, intact - Patient Status Disposition: Transfer SNF Condition: Fair Functional capacity at discharge: uses cane/walker Overall status at discharge: patient is progressing back to baseline - Discharge Instructions Instructions: Calcium and Osteoporosis (DC), Diabetes Mellitus Type 2 in Adults (DC), Chronic Obstructive Pulmonary Disease (DC), Chronic Hypertension ( DC), Pneumonia (DC) Follow Up With: NONE,PCP [Primary Care Provider] - - Diet and Activity Activity: as per physical therapy - VTE Documentation of Mechanical Device: Intermittent pneumatic compression device
--- NOTE | 2017-08-06 10:39 | Neurology - Consult Note ---
<PatriziaDemarcus - Last Filed: 08/06/17 10:45> Date of Encounter: 08/06/17 Time of Encounter: 08:45 Assessment and Plan (1) Confusion Current Visit: Yes Status: Resolved Most likely secondary to Ambien. Patient has returned to baseline since withdrawal of medication. (2) CVA (cerebral vascular accident) Current Visit: Yes Status: Acute MRI demonstrated punctate acute infarct in the left parietal lobe. Unlikely to be cause of acute confusion. Only neurologic deficit is a weakness of left foot dorsiflexion. Patient cleared by speech therapy for diet. Patient should continue aspirin and statin as an outpatient. History of Present Illness Chief complaint: AMS HPI: Rosa Davis is a 76 year old female who initially presented after fall on . She had multiple fractures of her spine (T8, T10, T12, L1) on CT imaging. CT of the head at that time was negative, as well. Patient developed an acute confusion and dysphagia on the morning of 08/04/2017. CT of the head was negative, but MRI showed an acute punctate left parietal infarction. Patient and received a dose of Ambien the previous night, which was withdrawn. She denies headache, weakness, numbness, and dysarthria. Past Med Surg Social Fam HX - Past Medical History Medical history: diabetes, hyperlipidemia, hypertension, osteoporosis, COPD Psychiatric history: anxiety, depression - Past Surgical History Surgical History: cholecystectomy - Social History Smoking Status: Never smoker Smokeless Tobacco Status: No Alcohol use: none Drug use: none - Family History Mother History Unknown: Yes Race: Family Member Ethnicity: Non- Living Status: Age at : 92 Cause of : Emphysema Hx Family Respiratory Disorders: Yes (Emphysema) Father Race: Family Member Ethnicity: Non- Living Status: Age at : 89 Cause of : Old age Brother Race: Family Member Ethnicity: Non- Living Status: Age at : 90 Cause of : [place] Hx Family Cardiac Disorders: Yes ([place]) Sister Race: Family Member Ethnicity: Non- Living Status: Cause of : [place] Hx Family Cardiac Disorders: Yes ([place], CAD) Medications and Allergies Acetaminophen [Tylenol] 650 mg PO Q4H PRN 08/01/17 [History] Aspirin [Lo-Dose Aspirin EC] 81 mg PO HS 08/01/17 [History] BuPROPion SR (12 HR) [Wellbutrin SR] 100 mg PO BID 08/01/17 [History] Calcitriol [Rocaltrol] 0.25 mcg PO DAILY 08/01/17 [History] Cholecalciferol (D-3) [Vitamin D] 1,000 unit PO DAILY 08/01/17 [History] FLUoxetine HCl [Prozac] 80 mg PO DAILY 08/01/17 [History] Ferrous Sulfate [Iron] 325 mg PO HS 08/01/17 [History] Furosemide [Lasix] 20 mg PO MOWEFR 08/01/17 [History] Loperamide HCl [Imodium A-D] 2 mg PO QID PRN 08/01/17 [History] Lovastatin 40 mg PO HS 08/01/17 [History] Mag Hydrox/Al Hydrox/Simeth [Antacid Suspension] 30 ml PO DAILY PRN 08/01/17 [ History] Magnesium Hydroxide [Milk of Magnesia] 30 ml PO DAILY PRN 08/01/17 [History] Nystatin POWDER [Nystop] 1 appl TP TID 08/01/17 [History] Ondansetron [Zofran ODT] 8 mg SL Q8H PRN 08/01/17 [History] Propranolol LA (24 HR) [Inderal LA] 60 mg PO DAILY 08/01/17 [History] Sennosides [Senna] 2 tab PO DAILY PRN 08/01/17 [History] Trospium Chloride 20 mg PO HS 08/01/17 [History] predniSONE [PredniSONE] 4 mg PO DAILY 08/01/17 [History] Clopidogrel [Plavix] 75 mg PO DAILY tablet 08/06/17 [Rx] Levofloxacin [Levaquin] 750 mg PO DAILY #4 tablet 08/06/17 [Rx] Tramadol HCl [Ultram] 50 mg PO Q8H PRN 7 Days #21 tablet 08/06/17 [Rx] amLODIPine [Norvasc] 10 mg PO DAILY tablet 08/06/17 [Rx] 3 Allergy/AdvReac Type Severity Reaction Status Date / Time No Known Allergies Allergy Verified 08/01/17 12:37 All Systems: The remainder of the systems were reviewed and are negative Review of Systems: A typical review of systems was reviewed and negative except as noted in the HPI. Physical Examination - Vital Signs Vital Signs: Initial Vital Signs Temp Pulse Resp BP Pulse Ox 97.8 F 62 20 173/76 96 08/01/17 07:22 08/01/17 07:22 08/01/17 07:22 08/01/17 07:22 08/01/17 07:22 - Exam Exam: CONSTITUTIONAL: Well-developed and well-nourished. Comfortable and in no acute distress. CARDIOVASCULAR: Regular rate and rhythm. +S1 and S2. CHEST: Normal work of breathing. NEURO: Mental Status: Alert and oriented to person and place, can identify year and season, but not month or day. Follows commands and answers questions. Inattention to backwards months and serial sevens. Long-term memory intact to presidents. Cranial Nerves: PERRL. EOMI. Visual mattson intact. Symmetrical facial strength. Facial sensation intact. No dysarthria. Hearing intact. Soft palate elevates symmetrically. SCM and trapezius without weakness. Tongue protrudes in midline. Motor: Left - 5/5 in upper and lower extremities, except 3/5 dorsiflexion in left foot. R - 5/5 in upper and lower extremities. Sensation intact. Patient unable to complete [id number] secondary to inattention. Results - Laboratory Findings CBC and BMP: 08/06/17 06:53 08/06/17 06:53 Abnormal lab findings: Abnormal lab results WBC 15.5 K/mcL (4.3-11.1) H 08/06/17 06:53 RBC 3.75 M/mcL (3.82-4.97) L 08/06/17 06:53 Hgb 11.3 g/dL (11.5-15.4) L 08/06/17 06:53 RDW 15.1 % (11.5-14.5) H 08/06/17 06:53 Plt Count 131 K/mcL (140-400) L 08/06/17 06:53 Neutrophils # 12.0 K/mcL (1.6-8.9) H 08/06/17 06:53 Nucleated RBCs/100 WBC 0.1 /100 WBC (0) H 08/01/17 08:04 ABG pH 7.47 pH Units (7.32-7.45) H 08/05/17 22:35 ABG pO2 80 mmHg (85-104) L 08/05/17 22:35 ABG HCO3 29 mEq/L (21-27) H 08/05/17 22:35 ABG Total CO2 30 mEq/L (20-26) H 08/05/17 22:35 ABG Base Excess 5 mEq/L (-2 to 3) H 08/05/17 22:35 BUN 26 mg/dL (8-23) H 08/06/17 06:53 Est GFR ( Amer) 53 (> 60) L 08/06/17 06:53 Est GFR (Non-Af Amer) 44 (> 60) L 08/06/17 06:53 Glucose 174 mg/dL (70-105) H 08/06/17 06:53 POC Glucose 192 mg/dL (70-99) H 08/05/17 22:11 Hemoglobin A1c 8.8 % (-5.6) H 08/02/17 04:07 Creatine Kinase 19 Units/L (30-223) L 08/05/17 18:00 Serum Total Protein 4.8 g/dL (6.4-8.9) L 08/06/17 06:53 Albumin 2.7 g/dL (3.5-5.7) L 08/06/17 06:53 Globulin 2.1 g/dL (2.4-3.5) L 08/06/17 06:53 HDL Cholesterol 26 mg/dL (40-59) L 08/02/17 04:07 Urine Protein 100 mg/dL (Neg-Trace) H 08/04/17 10:49 Urine Glucose (UA) 100 mg/dL (Normal) H 08/04/17 10:49 Ur Squamous Epith Cells Moderate per lpf (None-Few) H 08/04/17 10:49 Consult Discharge Plan - Plan Instructions: Calcium and Osteoporosis (DC), Diabetes Mellitus Type 2 in Adults (DC), Chronic Obstructive Pulmonary Disease (DC), Chronic Hypertension ( DC), Pneumonia (DC) Referrals: NONE,PCP [Primary Care Provider] - Prescriptions: Levofloxacin [Levaquin] 750 mg PO DAILY #4 tablet Tramadol HCl [Ultram] 50 mg PO Q8H PRN 7 Days #21 tablet PRN Reason: Moderate Pain <Kali Castanon - Last Filed: 08/06/17 16:49> Date of Encounter: 08/06/17 Time of Encounter: 16:41 Assessment and Plan (1) Confusion Current Visit: Yes Status: Resolved I suspect that this patient's transient confusion is more than likely due to the effects of the Ambien. She now appears to be back to her normal baseline cognitive function. I believe that the falls are multifactorial. 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 She also has a left peroneal nerve palsy. This may be contributing to her instability when walking with her walker and causing her to fall. I believe she would benefit from a left ankle-foot orthotic. Case was discussed with the hospitalist. I will reevaluate her at your request. History of Present Illness HPI: The chart is reviewed, patient was seen and examined independently. She is a resident who is generally alert and oriented who lives in an assisted living facility. Apparently she has been having falls increasingly more frequently as of late. She denied any new onset of numbness tingling or weakness of the face arms or legs. She states that she did not pass out. However she did suffer significant trauma to the face as evidenced by bruising, and she also suffered compression fractures of the thoracic spine. Apparently she had some difficulty sleeping and was given a dose of Ambien and was confused for much of the following day. Currently however she seems to be back to her normal baseline. She is alert and oriented and is able to give a fairly lucid history. All Systems: The remainder of the systems were reviewed and are negative Review of Systems: The balance of the systems review is negative. Physical Examination - Vital Signs Vital Signs: Initial Vital Signs Temp Pulse Resp BP Pulse Ox 97.8 F 62 20 173/76 96 08/01/17 07:22 08/01/17 07:22 08/01/17 07:22 08/01/17 07:22 08/01/17 07:22 - Neurologic Detailed motor examination: other (Patient has symmetric strength of the deltoids biceps triceps and lead atg developer strength symmetrically. Hip flexion is 4/5 symmetrically. The left tibialis anterior however is weak at 3/5. The right tibialis anterior is 4/5. Plantar flexion is 4/5 symmetrically. No involuntary movements or atrophy are present.) Detailed sensory examination: other (There is a profound sensory gradient to pinprick from distal to proximal. Proprioception of the small joints an enlarged toes are also impaired.) Reflex and gait examination: other (Deep tendon reflexes are diminished throughout.) Mental Status Examination: awake, alert, oriented to person, oriented to place, oriented to time, follows commands appropriately, answers questions appropriately, no agnosia, no aphasia, no aproxia Cranial nerve examination: PERRL, EOMI, visual mattson intact, sensory to face intact, mastication intact, no facial asymmetry is present, no dysarthria, hearing is intact symmetrically, soft palate elevates bilaterally upon phonation , flexes SCM and trapezius muscles symmetrically with full power, tongue protrudes midline Cerebellar examination: no dysmetria (Performs [id number] without ataxia. Did not assess her gait.) Results - Laboratory Findings CBC and BMP: 08/06/17 06:53 08/06/17 06:53 Abnormal lab findings: Abnormal lab results WBC 15.5 K/mcL (4.3-11.1) H 08/06/17 06:53 RBC 3.75 M/mcL (3.82-4.97) L 08/06/17 06:53 Hgb 11.3 g/dL (11.5-15.4) L 08/06/17 06:53 RDW 15.1 % (11.5-14.5) H 08/06/17 06:53 Plt Count 131 K/mcL (140-400) L 08/06/17 06:53 Neutrophils # 12.0 K/mcL (1.6-8.9) H 08/06/17 06:53 Nucleated RBCs/100 WBC 0.1 /100 WBC (0) H 08/01/17 08:04 ABG pH 7.47 pH Units (7.32-7.45) H 08/05/17 22:35 ABG pO2 80 mmHg (85-104) L 08/05/17 22:35 ABG HCO3 29 mEq/L (21-27) H 08/05/17 22:35 ABG Total CO2 30 mEq/L (20-26) H 08/05/17 22:35 ABG Base Excess 5 mEq/L (-2 to 3) H 08/05/17 22:35 BUN 26 mg/dL (8-23) H 08/06/17 06:53 Est GFR ( Amer) 53 (> 60) L 08/06/17 06:53 Est GFR (Non-Af Amer) 44 (> 60) L 08/06/17 06:53 Glucose 174 mg/dL (70-105) H 08/06/17 06:53 POC Glucose 192 mg/dL (70-99) H 08/05/17 22:11 Hemoglobin A1c 8.8 % (-5.6) H 08/02/17 04:07 Creatine Kinase 19 Units/L (30-223) L 08/05/17 18:00 Serum Total Protein 4.8 g/dL (6.4-8.9) L 08/06/17 06:53 Albumin 2.7 g/dL (3.5-5.7) L 08/06/17 06:53 Globulin 2.1 g/dL (2.4-3.5) L 08/06/17 06:53 HDL Cholesterol 26 mg/dL (40-59) L 08/02/17 04:07 Urine Protein 100 mg/dL (Neg-Trace) H 08/04/17 10:49 Urine Glucose (UA) 100 mg/dL (Normal) H 08/04/17 10:49 Ur Squamous Epith Cells Moderate per lpf (None-Few) H 08/04/17 10:49
[2017-08-06] MEDS: Azithromycin 500 MG in D5% in Water 250 ML IVPB SCH (14:30)
[2017-08-06 15:14] VITALS: BP 118/65
--- NOTE | 2017-08-06 16:24 | Physician Discharge Referral ---
ExtendedCare Referral Info Transfer To: SNF Provider in Charge: Sasha Gresham Provider in Charge after Transfer: PCP Institutional Level of Care: Skilled - Diagnosis (1) Hx of fall Status: Chronic (2) Facial injury Status: Acute (3) Thoracic spine fracture Status: Acute (4) Diabetes Status: Chronic (5) HTN (hypertension) Status: Chronic (6) HLD (hyperlipidemia) Status: Chronic (7) COPD (chronic obstructive pulmonary disease) Status: Chronic (8) Osteoporosis Status: Chronic (9) CKD (chronic kidney disease) stage 4, GFR 15-29 ml/min Status: Chronic (10) Leukocytosis Status: Acute (11) Right shoulder pain Status: Acute (12) Pulmonary nodule Status: Acute (13) Confusion Status: Resolved (14) Pneumonia Status: Acute (15) CVA (cerebral vascular accident) Status: Acute - Transfer Medications Prescriptions: Levofloxacin [Levaquin] 750 mg PO DAILY #4 tablet Tramadol HCl [Ultram] 50 mg PO Q8H PRN 7 Days #21 tablet PRN Reason: Moderate Pain Home Medications: Acetaminophen [Tylenol] 650 mg PO Q4H PRN 08/01/17 [History] Aspirin [Lo-Dose Aspirin EC] 81 mg PO HS 08/01/17 [History] BuPROPion SR (12 HR) [Wellbutrin SR] 100 mg PO BID 08/01/17 [History] Calcitriol [Rocaltrol] 0.25 mcg PO DAILY 08/01/17 [History] Cholecalciferol (D-3) [Vitamin D] 1,000 unit PO DAILY 08/01/17 [History] FLUoxetine HCl [Prozac] 80 mg PO DAILY 08/01/17 [History] Ferrous Sulfate [Iron] 325 mg PO HS 08/01/17 [History] Furosemide [Lasix] 20 mg PO MOWEFR 08/01/17 [History] Loperamide HCl [Imodium A-D] 2 mg PO QID PRN 08/01/17 [History] Lovastatin 40 mg PO HS 08/01/17 [History] Mag Hydrox/Al Hydrox/Simeth [Antacid Suspension] 30 ml PO DAILY PRN 08/01/17 [ History] Magnesium Hydroxide [Milk of Magnesia] 30 ml PO DAILY PRN 08/01/17 [History] Nystatin POWDER [Nystop] 1 appl TP TID 08/01/17 [History] Ondansetron [Zofran ODT] 8 mg SL Q8H PRN 08/01/17 [History] Propranolol LA (24 HR) [Inderal LA] 60 mg PO DAILY 08/01/17 [History] Sennosides [Senna] 2 tab PO DAILY PRN 08/01/17 [History] Trospium Chloride 20 mg PO HS 08/01/17 [History] predniSONE [PredniSONE] 4 mg PO DAILY 08/01/17 [History] Clopidogrel [Plavix] 75 mg PO DAILY tablet 08/06/17 [Rx] Levofloxacin [Levaquin] 750 mg PO DAILY #4 tablet 08/06/17 [Rx] Tramadol HCl [Ultram] 50 mg PO Q8H PRN 7 Days #21 tablet 08/06/17 [Rx] amLODIPine [Norvasc] 10 mg PO DAILY tablet 08/06/17 [Rx] Allergies/Adverse Reactions: 3 Allergy/AdvReac Type Severity Reaction Status Date / Time No Known Allergies Allergy Verified 08/01/17 12:37 - Respiratory Orders None Smoking Cessation: Smoking cessation has been advised. For more information, call the [place] Tobacco Quit Line at 6-272-JWSX-NOW. - Advance Directives Code Status: Full Code - Mobility Orders Ambulate - Rehabiliation Orders Rehab Potential: Fair Rehab Orders: Evaluation for Physical Therapy, Evaluation for Occupational Therapy Other: Recommend foot/ankle orthopedic brace - Diet Orders Regular CERTIFICATION: I certify that the transfer of the above named patient to an Extended Care Facility is necessary for the continuing treatment of the diagnosis listed. The above information is true and accurate reflection of patient's current condition. Confidential - Redisclosure prohibited without a patient's written consent.
== END 2017-08-06 18:57 | DRG 551 ==
LOC: 3BNU 07:19 → EMEROO 07:19 → 3BNU 13:48
PROVIDERS: ADMIT Nurse Practitioner Family; ATTEND Hospitalist

== ENCOUNTER 2017-10-17 17:30 | Inpatient (IN) ==
[2017-10-17 18:24] LABS: Lymphocytes % 4.3 %; Monocytes % 11.2 %
[2017-10-17 18:26] LABS: Basophils # 0.1 K/mcL (0.0-0.2); Basophils % 0.2 %; Hematocrit 37.7 % (35.3-44.9); Hemoglobin 12.3 g/dL (11.5-15.4); Lymphocytes # 1.1 K/mcL (0.6-4.6); Mean Corpuscular HGB Conc 32.6 g/dL (31.6-35.5); Mean Corpuscular Hemoglobin 31.6 pg (28.0-33.3); Mean Corpuscular Volume 96.9 fL (83.0-100.0); Mean Platelet Volume 11.8 fL (9.4-12.4); Monocytes # 2.9 K/mcL (0.0-1.3); Neutrophils # 21.1 K/mcL (1.6-8.9); Platelet Count 109 K/mcL (140-400); Red Blood Count 3.89 M/mcL (3.82-4.97); Red Cell Distribution Width 13.3 % (11.5-14.5); Segmented Neutrophils % 82.3 %
[2017-10-17 18:45] LABS: Troponin I < 0.03 ng/mL (< 0.04)
[2017-10-17 18:46] LABS: Platelet Estimate Decreased (Normal)
[2017-10-17 18:49] LABS: Alanine Aminotransferase 103 Units/L (7-52); Albumin 3.4 g/dL (3.5-5.7); Albumin/Globulin Ratio 1.4 (1.1-2.2); Alkaline Phosphatase 57 Units/L (34-104); Aspartate Amino Transferase 57 Units/L (13-39); BUN/Creatinine Ratio 18 (6-26); Bilirubin,Total 1.7 mg/dL (0.3-1.0); Blood Urea Nitrogen 34 mg/dL (8-23); Calcium 9.3 mg/dL (8.6-10.3); Carbon Dioxide 27 mEq/L (23-29); Chloride 99 mEq/L (98-107); Globulin 2.5 g/dL (2.4-3.5); Glucose 134 mg/dL (70-105); Osmolality,Calculated 286 (280-300); Potassium 4.2 mEq/L (3.5-5.1); Sodium 133 mEq/L (136-145); Total Protein 5.9 g/dL (6.4-8.9); eGFR For Non-African Americans 26 (> 60)
[2017-10-17 19:51] LABS: Bilirubin,Urine Negative (Negative); Blood,Urine Negative (Negative); Clarity,Urine Cloudy (Clear); Color,Urine Yellow (Yellow); Glucose,Urine (UA) Normal (Normal); Ketones,Urine Negative (Negative); Leukocyte Esterase,Urine Negative (Negative); Nitrite,Urine Negative (Negative); Protein,Urine 30 mg/dL (Neg-Trace); Specific Gravity,Urine 1.024 (1.010-1.025); Urobilinogen,Urine Normal (Normal)
[2017-10-17 19:53] LABS: Bacteria,Urine Moderate per hpf (None-Few); Hyaline Casts,Urine None Seen per lpf (None-Few); RBC,Urine 0-3 per hpf (0-3); Squamous Epithelial Cell,Urine Many per lpf (None-Few); WBC,Urine 0-3 per hpf (0-3)
[2017-10-17] MEDS ORDERED: Piperacillin/Tazobactam 3.375 GM in 0.9 % Sodium Chloride Mini Bag 100 ML IVPB ONE (20:10)
[2017-10-17] MEDS ORDERED: Levofloxacin 750 MG/150 ML 750 MG/150 ML BAG IVPB ONE (20:10)
[2017-10-17] MEDS ORDERED: Ipratropium/Albuterol Neb 3 ML IH ONE (20:57)
[2017-10-17] MEDS ORDERED: 0.9 % Sodium Chloride 500 ML IVC ONE (20:57)
--- NOTE | 2017-10-17 20:57 | Emergency Department Note ---
Disposition Clinical Impression: Hospital-acquired pneumonia, Elevated liver enzymes, Confusion, Abnormal EKG Leukocytosis Qualifiers: Leukocytosis type: unspecified Qualified Code(s): D72.829 - Elevated white blood cell count, unspecified Disposition: Admitted As Inpatient Condition: Good Referrals: NONE,PCP [Primary Care Provider] - General Adult HPI - General Chief complaint: ED Abdominal Pain Stated complaint: UTI Time Seen by Provider: 10/17/17 17:41 Source: patient, EMS Limitations: no limitations Nursing Notes Reviewed: Yes Vital Signs Reviewed: Yes - History of Present Illness HPI Narrative: Patient transferred from [facility] for further evaluation of concern for infection as the patient has had increased staring off into space throughout the day. Patient is awake alert and oriented 2. Patient is very conversational and states that she is in a [place] [facility] because of frequent falls. She states that she started feeling bad last night with increased shortness of breath as well as a cough and some yellow sputum production. She does not typically wear home oxygen. She is not currently requiring oxygen supplementation. The patient has had with [facility] describes as a strong odor to her urine and they were concerned that she might have a urinary tract infection. Patient will undergo further evaluation with blood work as well as a chest x-ray and urinalysis to evaluate for possible infection. Pain Scale: 0 - Related Data Home Medications Medication Instructions Recorded Confirmed Acetaminophen [Tylenol] 650 mg PO Q4H PRN 08/01/17 08/01/17 Aspirin [Lo-Dose Aspirin EC] 81 mg PO HS 08/01/17 08/01/17 BuPROPion SR (12 HR) [Wellbutrin 100 mg PO BID 08/01/17 08/01/17 SR] Calcitriol [Rocaltrol] 0.25 mcg PO DAILY 08/01/17 08/01/17 Cholecalciferol (D-3) [Vitamin D] 1,000 unit PO DAILY 08/01/17 08/01/17 FLUoxetine HCl [Prozac] 80 mg PO DAILY 08/01/17 08/01/17 Ferrous Sulfate [Iron] 325 mg PO HS 08/01/17 08/01/17 Furosemide [Lasix] 20 mg PO MOWEFR 08/01/17 08/01/17 Loperamide HCl [Imodium A-D] 2 mg PO QID PRN 08/01/17 08/01/17 Lovastatin 40 mg PO HS 08/01/17 08/01/17 Mag Hydrox/Al Hydrox/Simeth 30 ml PO DAILY PRN 08/01/17 08/01/17 [Antacid Suspension] Magnesium Hydroxide [Milk of 30 ml PO DAILY PRN 08/01/17 08/01/17 Magnesia] Nystatin POWDER [Nystop] 1 appl TP TID 08/01/17 08/01/17 Ondansetron [Zofran ODT] 8 mg SL Q8H PRN 08/01/17 08/01/17 Propranolol LA (24 HR) [Inderal LA] 60 mg PO DAILY 08/01/17 08/01/17 Sennosides [Senna] 2 tab PO DAILY PRN 08/01/17 08/01/17 Trospium Chloride 20 mg PO HS 08/01/17 08/01/17 predniSONE [PredniSONE] 4 mg PO DAILY 08/01/17 08/01/17 Previous Rx's Medication Instructions Recorded Clopidogrel [Plavix] 75 mg PO DAILY tablet 08/06/17 Levofloxacin [Levaquin] 750 mg PO DAILY #4 tablet 08/06/17 Tramadol HCl [Ultram] 50 mg PO Q8H PRN 7 Days #21 tablet 08/06/17 amLODIPine [Norvasc] 10 mg PO DAILY tablet 08/06/17 Allergies Allergy/AdvReac Type Severity Reaction Status Date / Time No Known Allergies Allergy Verified 08/01/17 12:37 Review of Systems: CONSTITUTIONAL: Generalized weakness and fatigue without fever HEENT: Eyes: No visual changes. Ears, Nose, Throat: No hearing loss, difficulty talking or unable to swallow. SKIN: No rash or itching. CARDIOVASCULAR: No chest pain, chest pressure or chest discomfort. No palpitations or edema. RESPIRATORY: Increased shortness of breath without oxygen requirement and cough with yellow sputum production.. GASTROINTESTINAL: Nausea without vomiting and lower abdominal pain GENITOURINARY: No burning on urination or hematuria. NEUROLOGICAL: No headache, dizziness, syncope, paralysis, ataxia, numbness or tingling in the extremities. No change in bowel or bladder control. MUSCULOSKELETAL: No muscle pain, back pain, joint pain or stiffness. Past Medical History - Past Medical History Medical history: Reports: diabetes, hyperlipidemia, hypertension, osteoporosis, COPD Surgical history: Reports: cholecystectomy Psychiatric history: Reports: anxiety, depression - Social History Smoking Status: Never smoker Smokeless Tobacco Status: No Alcohol use: Reports: none Drug use: Reports: none Physical Exam General: Well appearing, nontoxic, no acute distress Head: Normocephalic Atraumatic Eyes: PERRL, EOMI ENT: Airway patent, no stridor Neck: supple, no meningismus Chest: Mild decreased air movement. Without significant rhonchi or rales. Cardiac: Regular rate and rhythm, no murmurs, rubs or gallops Abdomen: soft, mild tenderness to the lower abdomen suprapubically, nondistended ; no guarding, rebound, or tenderness to percussion Musculoskeletal: Calves symmetric, nontender, no palpable cord Skin: No rash, normal skin tone Neuro: Alert and Oriented person and place but not time. No focal deficit on exam. Mild confusion at times but conversational - General Limitations: no limitations General appearance: alert, in no apparent distress Course - Reevaluation(s) Reevaluation #1: Blood work shows significantly elevated white count as well as elevated LFTs and bilirubin. CT scan abdomen performed as well as CT head. Reevaluation #2: Urinalysis without significant infection. X-ray concerning for pneumonia. CT head and abdomen pelvis without significant change. Patient's [facility] patient placed on broad-spectrum antibiotics. Blood cultures have been obtained. We will discuss with hospitalist regards to further management. - Consultations Consultation #1: Discussed with hospitalist. Patient except for admission. Does request gallbladder ultrasound secondary to elevated bilirubin and AST ALC. The patient has been evaluated multiple times and does not complain of any further abdominal pain. She has no right upper quadrant abdominal pain. Ultrasound has been ordered. Patient is stable at this time. Vital Signs Temperature 98.9 F 10/17/17 17:37 Pulse Rate 67 10/17/17 17:37 Respiratory Rate 18 10/17/17 17:37 Blood Pressure 134/72 10/17/17 17:37 O2 Sat by Pulse Oximetry 97 10/17/17 17:37 Temperature 98.9 F 10/17/17 17:37 Pulse Rate 67 10/17/17 17:37 Respiratory Rate 18 10/17/17 17:37 Blood Pressure 134/72 10/17/17 17:37 O2 Sat by Pulse Oximetry 97 10/17/17 17:37 Oxygen Delivery Oxygen Delivery Room Air Medical Decision Making - Medical Records Medical records reviewed: Yes I reviewed the patient's medical records. - Lab Data Lab results reviewed: Yes I reviewed the patient's lab results. Result diagrams: 10/17/17 18:00 10/17/17 18:00 Lab Results 10/17/17 10/17/17 10/17/17 Range/Units 18:00 18:00 19:41 WBC 25.6 H (4.3-11.1) K/mcL RBC 3.89 (3.82-4.97) M/mcL Hgb 12.3 (11.5-15.4) g/dL Hct 37.7 (35.3-44.9) % MCV 96.9 (83.0-100.0) fL MCH 31.6 (28.0-33.3) pg MCHC 32.6 (31.6-35.5) g/dL RDW 13.3 (11.5-14.5) % Plt Count 109 L (140-400) K/mcL MPV 11.8 (9.4-12.4) fL Immature Gran % 2.0 (0-4) % Seg Neutrophils % 82.3 % Lymphocytes % 4.3 % Monocytes % 11.2 % Eosinophils % 0.0 % Basophils % 0.2 % Neutrophils # 21.1 H (1.6-8.9) K/mcL Lymphocytes # 1.1 (0.6-4.6) K/mcL Monocytes # 2.9 H (0.0-1.3) K/mcL Eosinophils # 0.0 (0.0-0.6) K/mcL Basophils # 0.1 (0.0-0.2) K/mcL Platelet Estimate Decreased L (Normal) Sodium 133 L (136-145) mEq/L Potassium 4.2 (3.5-5.1) mEq/L Chloride 99 (98-107) mEq/L Carbon Dioxide 27 (23-29) mEq/L BUN 34 H (8-23) mg/dL Creatinine 1.87 H (0.60-1.20) mg/dL Est GFR ( Amer) 32 L (> 60) Est GFR (Non-Af Amer) 26 L (> 60) BUN/Creatinine Ratio 18 (6-26) Glucose 134 H (70-105) mg/dL Calculated Osmolality 286 (280-300) Calcium 9.3 (8.6-10.3) mg/dL Total Bilirubin 1.7 H (0.3-1.0) mg/dL AST 57 H (13-39) Units/L ALT 103 H (7-52) Units/L Alkaline Phosphatase 57 (34-104) Units/L Troponin I < 0.03 (< 0.04) ng/mL Serum Total Protein 5.9 L (6.4-8.9) g/dL Albumin 3.4 L (3.5-5.7) g/dL Globulin 2.5 (2.4-3.5) g/dL Albumin/Globulin Ratio 1.4 (1.1-2.2) Urine Color Yellow (Yellow) Urine Clarity Cloudy A (Clear) Urine pH 5.0 (5.0-8.0) pH Units Ur Specific [place] 1.024 (1.010-1.025) Urine Protein 30 H (Neg-Trace) mg/dL Urine Glucose (UA) Normal (Normal) mg/dL Urine Ketones Negative (Negative) mg/dL Urine Blood Negative (Negative) Urine Nitrite Negative (Negative) Urine Bilirubin Negative (Negative) Urine Urobilinogen Normal (Normal) mg/dL Ur Leukocyte Esterase Negative (Negative) Urine Microscopic RBC 0-3 (0-3) per hpf Urine Microscopic WBC 0-3 (0-3) per hpf Ur Squamous Epith Cells Many H (None-Few) per lpf Urine Bacteria Moderate H (None-Few) per hpf Hyaline Casts None Seen (None-Few) per lpf Ur Culture Indicated? NO (NO) - Radiology Data Radiology results reviewed: Yes I reviewed the patient's radiology results. - EKG Data EKG #1 EKG attestation: Yes I reviewed and interpreted this EKG. EKG results narrative: EKG shows no specific P waves and mildly irregular with concern for atrial fibrillation with ventricular rate of 58. No significant elevations or depressions. Previous EKG shows sinus rhythm with difficult to see P waves. Her rate today is only mildly irregular. Will need to be evaluated for further possible atrial fibrillation.
[2017-10-18] MEDS ORDERED: Ondansetron 4 MG/2 ML VIAL IVP PRN (03:48)
[2017-10-18] MEDS ORDERED: Albuterol 2.5 MG/3 ML NEBULIZER IH PRN (03:55)
[2017-10-18] MEDS ORDERED: Mag Hydrox/Al Hydrox/Simeth 30 ML UDC PO PRN (03:55)
[2017-10-18] MEDS ORDERED: traMADol 50 MG TABLET PO PRN (03:55)
[2017-10-18] MEDS ORDERED: Sennosides 8.6 MG TABLET PO PRN (03:55)
[2017-10-18] MEDS ORDERED: MOM Conc 10 ML UD.LIQ PO PRN (03:55)
[2017-10-18] MEDS ORDERED: Naloxone 0.4 MG/ML INJ IVP PRN (03:58)
[2017-10-18] MEDS ORDERED: Acetaminophen 325 MG TABLET PO PRN (03:58)
[2017-10-18] MEDS ORDERED: *HR* Dextrose 50 % in Water (Syg) 50 ML SYRINGE IVP PRN (04:05)
[2017-10-18] MEDS ORDERED: D5% in Water 1,000 ML IVC PRN (04:05)
[2017-10-18] MEDS ORDERED: Dextrose Gel 15 GM/37.5 ML TUBE PO PRN ×2 (04:05)
[2017-10-18] MEDS: Insulin LISPRO 300 UNITS/3 ML VIAL SQ SCH ×5 (04:19→20:43)
[2017-10-18] MEDS: 0.9 % Sodium Chloride 1,000 ML IVC SCH ×2 (04:28→17:04)
[2017-10-18] MEDS: Aspirin Enteric Coated 81 MG Tablet PO SCH ×2 (04:29→20:43)
--- NOTE | 2017-10-18 04:29 | Internal Med History&Physical ---
Date of Encounter: 10/18/17 Time of Encounter: 04:27 Internal Medicine - H&P: HPI Chief complaint: "Abdominal pain with nausea and vomiting" Admitted From: Emergency Dept Plans for Post Hospital Care: Transfer [employer] [facility] History of present illness: Ms. Davis is a 76 year old female [facility] resident who presented to ED today with abdominal pain, nausea, and vomiting. She states that symptoms started last night. Due to concern for possible infection, [facility] called EMS to transport patient to ED. She also had productive cough. In the ED, UA was unremarkable. CXR was concerning for small opacity in left retrocardiac area. She had leukocytosis to 25.6. UA was unremarkable. Creatinine was at baseline. She had elevated AST, ALT, and total bilirubin. CT abdomen/pelvis no acute intraabdominal pathology. RUQ ultrasound was unremarkable. At the time of my evaluation, patient states that she is feeling "much better." Abdominal pain, nausea, and vomiting are resolved. She denies fever, chills, chest pain, SOB, or dysuria. She has no complaints at this time. Past Med Surg Social Fam HX - Past Medical History Attestation: Yes The following information was validated with the patient. Source: patient Medical history: diabetes, hyperlipidemia, hypertension, osteoporosis, COPD Additional medical history: neuropathy, anemia Psychiatric history: anxiety, depression - Past Surgical History Surgical History: cholecystectomy - Social History Smoking Status: Never smoker Smokeless Tobacco Status: No Alcohol use: none Drug use: none - Family History Mother Family Member Ethnicity: Non- Living Status: Hx Family Respiratory Disorders: Yes (Emphysema) Father Family Member Ethnicity: Non- Living Status: Brother Family Member Ethnicity: Non- Living Status: Hx Family Cardiac Disorders: Yes (MD) Sister Family Member Ethnicity: Non- Living Status: Hx Family Cardiac Disorders: Yes (MD, CAD) - Additional Family History Additional family history: Family history verified with patient. Internal Medicine - H&P: Meds Acetaminophen [Tylenol] 650 mg PO Q4H PRN 08/01/17 [History] Aspirin [Lo-Dose Aspirin EC] 81 mg PO HS 08/01/17 [History] BuPROPion SR (12 HR) [Wellbutrin SR] 100 mg PO BID 08/01/17 [History] Calcitriol [Rocaltrol] 0.25 mcg PO DAILY 08/01/17 [History] Cholecalciferol (D-3) [Vitamin D] 1,000 unit PO DAILY 08/01/17 [History] FLUoxetine HCl [Prozac] 80 mg PO DAILY 08/01/17 [History] Ferrous Sulfate [Iron] 325 mg PO HS 08/01/17 [History] Furosemide [Lasix] 20 mg PO MOWEFR 08/01/17 [History] Loperamide HCl [Imodium A-D] 2 mg PO QID PRN 08/01/17 [History] Lovastatin 40 mg PO HS 08/01/17 [History] Mag Hydrox/Al Hydrox/Simeth [Antacid Suspension] 30 ml PO DAILY PRN 08/01/17 [ History] Magnesium Hydroxide [Milk of Magnesia] 30 ml PO DAILY PRN 08/01/17 [History] Nystatin POWDER [Nystop] 1 appl TP TID 08/01/17 [History] Ondansetron [Zofran ODT] 8 mg SL Q8H PRN 08/01/17 [History] Propranolol LA (24 HR) [Inderal LA] 60 mg PO DAILY 08/01/17 [History] Sennosides [Senna] 2 tab PO DAILY PRN 08/01/17 [History] predniSONE [PredniSONE] 3 mg PO DAILY 08/01/17 [History] Tramadol HCl [Ultram] 50 mg PO Q8H PRN 7 Days #21 tablet 08/06/17 [Rx] amLODIPine [Norvasc] 10 mg PO DAILY tablet 08/06/17 [Rx] Insulin ASPART [NovoLOG] 0 - 12 unit SQ QID 10/17/17 [History] Insulin Glargine,Hum.rec.anlog [Lantus Solostar] 4 unit SQ 199910/17/17 [ History] 3 Allergy/AdvReac Type Severity Reaction Status Date / Time No Known Allergies Allergy Verified 10/17/17 21:08 All Systems PM: A 10-system review of systems was performed and is negative for pertinent findings except as documented above in the HPI. - Constitutional Vitals: Temp Pulse Resp BP Pulse Ox 98.3 F 66 16 151/75 96 10/18/17 03:39 10/18/17 03:39 10/18/17 03:39 10/18/17 03:39 10/18/17 03:39 General appearance: Present: cooperative, A&O X 3, pleasant, no acute distress, answers questions appropriately - Head Head exam: Present: atraumatic, normocephalic - Eye Eye exam: Present: EOMI, PERRL. Absent: conjunctival injection, nystagmus, scleral icterus - ENT ENT exam: Present: mucous membranes moist, normal external ear exam, normal oropharynx - Neck Neck exam general surgery: Present: supple, trachea midline. Absent: lymphadenopathy, tenderness, thyromegaly - Respiratory Respiratory exam: Present: CTAB. Absent: accessory muscle use, rales, rhonchi, wheezes Additional comments: Normal WOB - Cardiovascular Cardiovascular exam: Present: RRR, +S1, +S2. Absent: diastolic murmur, gallop, rubs, systolic murmur Additional comments: Trace BLE edema - GI/Abdominal GI/Abdominal exam: Present: normal bowel sounds, soft. Absent: distended, hepatomegaly, mass, splenomegaly, tenderness - Neurological Exam Neurological exam: Present: alert, CN II-XII intact, oriented X3, no focal deficits, strengths equal and symetr throughout. Absent: motor sensory deficit , facial droop, speech deficit - Psychiatric Psychiatric exam: Present: normal affect, normal mood. Absent: agitated, anxious, depressed - Skin Skin exam: Present: dry, intact, warm. Absent: cyanosis, rash Internal Med - H&P Results - Labs CBC & Chem 7: 10/17/17 18:00 10/17/17 18:00 - Assessment and plan (1) Hospital-acquired pneumonia Current Visit: Yes Status: Acute Assessment and plan: Admit inpatient with telemetry. Continue IV levaquin, IV vancomycin, and IV zosyn. Respiratory status is stable on room air. Will order PRN supplemental O2 and PRN albuterol nebs. Start tylenol PRN fever. Start gentle hydration with IV NS at 75 ml/hr. Repeat CBC in AM. (2) Elevated liver enzymes Current Visit: Yes Status: Acute Assessment and plan: CT abdomen/pelvis and RUQ ultrasound unremarkable. Abdominal pain resolved. Will continue to monitor closely. (3) CKD (chronic kidney disease) stage 4, GFR 15-29 ml/min Current Visit: Yes Status: Chronic Assessment and plan: Creatinine at baseline. Gentle hydration with IV NS as per above. Encourage PO hydration. Recheck CMP in AM. (4) COPD (chronic obstructive pulmonary disease) Current Visit: Yes Status: Chronic Assessment and plan: Start albuterol nebs Q4H PRN SOB/wheezing. Continue home medications. Qualifiers: COPD type: unspecified COPD Qualified Code(s): J44.9 - Chronic obstructive pulmonary disease, unspecified (5) Diabetes Current Visit: Yes Status: Chronic Assessment and plan: Start accuchecks and low dose SSI QID AC/HS. Continue home long-acting insulin. Qualifiers: Diabetes mellitus type: type 2 Diabetes mellitus intermodal dispatcher insulin use: with intermodal dispatcher use Diabetes mellitus complication status: without complication Qualified Code(s): E11.9 - Type 2 diabetes mellitus without complications; Z79.4 - intermediate (current) use of insulin (6) HLD (hyperlipidemia) Current Visit: Yes Status: Chronic Assessment and plan: Continue home medications. Qualifiers: Hyperlipidemia type: mixed hyperlipidemia Qualified Code(s): E78.2 - Mixed hyperlipidemia (7) HTN (hypertension) Current Visit: Yes Status: Chronic Assessment and plan: Continue home medications. Qualifiers: Hypertension type: essential hypertension Qualified Code(s): I10 - Essential (primary) hypertension (8) DVT prophylaxis Current Visit: Yes Status: Acute Assessment and plan: Start SCDs and renally dosed lovenox 30 mg SQ QD. - Time Spent With Patient Total time spent is greater than 50% in coordination of care (as documented) at patient's floor/unit and/or counseling patient: less than 15 minutes
[2017-10-18 04:40] LABS: Basophils % 0.2 %; Eosinophils # 0.1 K/mcL (0.0-0.6); Eosinophils % 0.4 %; Hematocrit 36.1 % (35.3-44.9); Hemoglobin 11.3 g/dL (11.5-15.4); Immature Granulocytes % 1.8 % (0-4); Lymphocytes # 1.1 K/mcL (0.6-4.6); Lymphocytes % 5.6 %; Mean Corpuscular HGB Conc 31.3 g/dL (31.6-35.5); Mean Corpuscular Hemoglobin 31.3 pg (28.0-33.3); Monocytes # 1.7 K/mcL (0.0-1.3); Monocytes % 9.2 %; Neutrophils # 15.6 K/mcL (1.6-8.9); Nucleated Red Blood Cells 0.1 /100 WBC (0); Platelet Count 101 K/mcL (140-400); Red Blood Count 3.61 M/mcL (3.82-4.97); Red Cell Distribution Width 13.4 % (11.5-14.5); Segmented Neutrophils % 82.8 %
[2017-10-18] MEDS: Nystatin POWDER 30 GM BOTTLE TP SCH ×4 (05:11→20:43)
[2017-10-18] MEDS: *HR* Enoxaparin 30 MG/0.3 ML SYRINGE SQ SCH (05:14)
[2017-10-18 05:26] LABS: Albumin/Globulin Ratio 1.3 (1.1-2.2); Calcium 8.6 mg/dL (8.6-10.3); Globulin 2.3 g/dL (2.4-3.5); Potassium 4.3 mEq/L (3.5-5.1); Total Protein 5.3 g/dL (6.4-8.9)
[2017-10-18] MEDS ORDERED: Furosemide 20 MG TABLET PO SCH (08:00)
[2017-10-18] MEDS ORDERED: FLUoxetine 20 MG CAPSULE PO SCH (09:00)
[2017-10-18] MEDS ORDERED: BuPROPion SR (12 HR) 100 MG TABLET PO SCH (09:00)
[2017-10-18] MEDS: Piperacillin/Tazobactam 3.375 GM in 0.9 % Sodium Chloride Mini Bag 100 ML IVPB SCH ×2 (09:46→16:50)
[2017-10-18] MEDS: amLODIPine 5 MG TABLET PO SCH (09:46)
[2017-10-18] MEDS: Cholecalciferol (D-3) 1,000 UNIT TABLET PO SCH (09:47)
[2017-10-18] MEDS: predniSONE 1 MG TABLET PO SCH (09:47)
[2017-10-18] MEDS: Propranolol LA (24 HR) 60 MG CAP.SA.24H PO SCH (09:47)
--- NOTE | 2017-10-18 16:35 | Electrocardiograph Report ---
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
[2017-10-18] MEDS ORDERED: NON-FORMULARY MEDICATION 1 EACH EACH (Insulin Glargine,Hum.Rec.Anlog [Lantus Solostar] 4 U SQ SCH (20:00)
[2017-10-18] MEDS: Insulin DETEMIR 100 UNIT/ML X5UNITS SQ SCH (20:43)
[2017-10-18] MEDS ORDERED: Levofloxacin 750 MG/150 ML 750 MG/150 ML BAG IVPB SCH (22:00)
--- NOTE | 2017-10-18 23:53 | Event Note ---
Date of Encounter: 10/18/17 Time of Encounter: 19:00 This patient was admitted today with nausea and vomiting. She has had this problem off and on for about2 months. CT of abdomen/pelvis did not reveal any particular acute abnormalities. Her WBC decreased from 25.6 thousand to 18.9 thousand. Her UA shows normal findings. Repeated chest x-ray from today does not show any abnormalities. She has resolving acute kidney injury, likely secondary to volume contraction. I am going to decrease her dose of Prozac. I am going to decrease her dose of Wellbutrin. We will repeat CBC/BMP tomorrow morning.
[2017-10-19] MEDS: Piperacillin/Tazobactam 3.375 GM in 0.9 % Sodium Chloride Mini Bag 100 ML IVPB SCH ×2 (00:37→09:41)
[2017-10-19 01:15] LABS: Calcium 8.2 mg/dL (8.6-10.3); Magnesium 1.6 mg/dL (1.6-2.6); Potassium 3.5 mEq/L (3.5-5.1)
[2017-10-19 01:37] LABS: Basophils % 0.1 %; Eosinophils # 0.1 K/mcL (0.0-0.6); Eosinophils % 0.4 %; Hematocrit 32.3 % (35.3-44.9); Hemoglobin 10.9 g/dL (11.5-15.4); Lymphocytes # 1.3 K/mcL (0.6-4.6); Lymphocytes % 6.6 %; Mean Corpuscular HGB Conc 33.7 g/dL (31.6-35.5); Mean Corpuscular Hemoglobin 32.2 pg (28.0-33.3); Mean Corpuscular Volume 95.3 fL (83.0-100.0); Mean Platelet Volume 12.4 fL (9.4-12.4); Monocytes # 1.9 K/mcL (0.0-1.3); Monocytes % 9.8 %; Neutrophils # 15.9 K/mcL (1.6-8.9); Red Blood Count 3.39 M/mcL (3.82-4.97); Red Cell Distribution Width 13.2 % (11.5-14.5); Segmented Neutrophils % 82.1 %
[2017-10-19 02:09] LABS: Platelet Count 80 K/mcL (140-400)
[2017-10-19] MEDS: *HR* Enoxaparin 30 MG/0.3 ML SYRINGE SQ SCH (06:16)
[2017-10-19] MEDS: Insulin LISPRO 300 UNITS/3 ML VIAL SQ SCH ×4 (09:33→20:53)
[2017-10-19] MEDS: 0.9 % Sodium Chloride 1,000 ML IVC SCH (09:39)
[2017-10-19] MEDS: amLODIPine 5 MG TABLET PO SCH (09:41)
[2017-10-19] MEDS: Propranolol LA (24 HR) 60 MG CAP.SA.24H PO SCH (09:42)
[2017-10-19] MEDS: FLUoxetine 20 MG CAPSULE PO SCH (09:42)
[2017-10-19] MEDS: Cholecalciferol (D-3) 1,000 UNIT TABLET PO SCH (09:42)
[2017-10-19] MEDS: predniSONE 1 MG TABLET PO SCH (09:42)
[2017-10-19] MEDS: Nystatin POWDER 30 GM BOTTLE TP SCH ×3 (09:51→20:54)
[2017-10-19] MEDS ORDERED: Aminoglycoside Consult 1 EACH MC ONE (12:19)
--- NOTE | 2017-10-19 14:42 | Internal Med Progress Note ---
Date of Encounter: 10/19/17 Time of Encounter: 14:42 - Assessment and plan (1) Clostridium difficile colitis Current Visit: Yes Status: Acute Assessment and plan: Patient with 1-2 day history of abdominal pain nausea vomiting and diarrhea -Persistent leukocytosis slightly improved from admission; 19.3 today -History of industrial toxin positive today -Start oral vancomycin 125 mg 4 times a day -Continue IV vancomycin and IV Zosyn and IV Levaquin as the patient does not have radiographic evidence of pneumonia or a history to support it; most likely tracheobronchitis -We will monitor Leukocytosis -Discontinue loperamide (2) Tracheobronchitis Current Visit: Yes Status: Acute Assessment and plan: She will reported several month history of cough that is intermittently productive with light yellow sputum Doubt hospital associated pneumonia secondary to history and no radiographic evidence Discontinue IV vancomycin and Zosyn and Levaquin especially in the light of clostridium difficile colitis infection Will start azithromycin for suspected tracheobronchitis Afebrile (3) Thrombocytopenia Current Visit: Yes Status: Acute Assessment and plan: Patient with chronic history of thrombocytopenia at baseline seems to be between 100K -120K -Platelets are 80K today -Likely secondary to infection versus IV antibiotics -Continue low molecular weight heparin for DVT prophylaxis for now -Check CBC tomorrow (4) CKD (chronic kidney disease) stage 4, GFR 15-29 ml/min Current Visit: Yes Status: Chronic Assessment and plan: Creatinine at baseline. The patient's baseline is between 1.6 and 2.0 Gentle hydration with IV NS; currently seems adequate for hydration, may need to increase if Diarrhea continues Encourage PO hydration. Check UPC No evidence of obstruction or hydronephrosis on CT Discontinue Lasix Recheck CMP in AM. (5) Diabetes Current Visit: Yes Status: Chronic Assessment and plan: Continue accuchecks low dose SSI QID AC/HS. Continue home long-acting insulin Qualifiers: Diabetes mellitus type: type 2 Diabetes mellitus long lines operator insulin use: with long lines operator use Diabetes mellitus complication status: without complication Qualified Code(s): E11.9 - Type 2 diabetes mellitus without complications; Z79.4 - long term care pharmacist (current) use of insulin (6) HTN (hypertension) Current Visit: Yes Status: Chronic Assessment and plan: Continue home medications. Qualifiers: Hypertension type: essential hypertension Qualified Code(s): I10 - Essential (primary) hypertension (7) HLD (hyperlipidemia) Current Visit: Yes Status: Chronic Assessment and plan: Continue home medications. Qualifiers: Hyperlipidemia type: mixed hyperlipidemia Qualified Code(s): E78.2 - Mixed hyperlipidemia (8) COPD (chronic obstructive pulmonary disease) Current Visit: Yes Status: Chronic Assessment and plan: albuterol nebs Q4H PRN SOB/wheezing. Continue home medications. Qualifiers: COPD type: unspecified COPD Qualified Code(s): J44.9 - Chronic obstructive pulmonary disease, unspecified (9) Elevated liver enzymes Current Visit: Yes Status: Acute Assessment and plan: CT abdomen/pelvis and RUQ ultrasound unremarkable. Abdominal pain resolved. Will continue to monitor closely. CMP in a.m. (10) DVT prophylaxis Current Visit: Yes Status: Acute Assessment and plan: Start SCDs and renally dosed lovenox 30 mg SQ QD. (11) Chronic a-fib Current Visit: Yes Status: Acute Assessment and plan: Chronic atrial fibrillation with slow ventricular response. Patient states that she was taken off anticoagulation for atrial fibrillation secondary to her frequent falls. Continue propanolol - Time Spent With Patient Total time spent is greater than 50% in coordination of care (as documented) at patient's floor/unit and/or counseling patient: 25 - 35 minutes - Subjective Interval history: Patient seen and examined. No acute overnight events. The patient states that she has been having some abdominal pain and diarrhea today. Patient states that she is occasionally nauseous today but was not vomiting anymore. Patient' s Clostridium difficile toxin is positive; Patient denies any recent antibiotic use however the patient live in a retirement. Patient states that she has had a chronic cough for many months or years and denies any shortness of breath or cough today. Patient denies any chest pain. He denies any recent fevers. - Constitutional Vitals: Temp Pulse Resp BP Pulse Ox 98.1 F 56 16 122/76 98 10/19/17 10:49 10/19/17 10:49 10/19/17 10:49 10/19/17 10:49 10/19/17 10:49 General appearance: Present: cooperative, A&O X 3, pleasant, no acute distress, answers questions appropriately Exam: Constitutional: No acute distress, Alert, nontoxic Psych: AAO x 3 HEENT: NCAT, EOMI Neck: supple, no JVD Cardio: Irregularly irregular and bradycardic, +s1s2, no murmurs/rubs/ronchi, Resp: clear to ascultation bilaterally, no wheezes/rales/ronchi Abd: soft, with mild tenderness to palpation throughout, with hypoactive bowel sounds, patient with no rebound guarding or rigidity Extremities: no clubbing/cyanosis/edema appreciated Neuro: no focal deficits appreciated Lymph: no cervical/supraclavicular adenopahty apprecitated Internal Medicine: Result - Labs CBC & Chem 7: 10/19/17 00:27 10/19/17 00:27 Labs: Short CBC 10/19/17 Range/Units 00:27 WBC 19.3 H (4.3-11.1) K/mcL Hgb 10.9 L (11.5-15.4) g/dL Hct 32.3 L (35.3-44.9) % Plt Count 80 L (140-400) K/mcL Neutrophils # 15.9 H (1.6-8.9) K/mcL BMP 10/19/17 00:27 Sodium 135 L Potassium 3.5 Chloride 104 Carbon Dioxide 25 BUN 30 H Creatinine 1.90 H Glucose 96 Calcium 8.2 L - Impressions Impressions Chest X-Ray 10/18/17 16:40 IMPRESSION: No acute abnormality detected on the current examination. D/ / Billy Benitez MD / Billy Benitez MD Interpreting Provider: Billy Benitez MD - VTE Documentation of Mechanical Device: Intermittent pneumatic compression device Consult Discharge Plan - Plan Referrals: NONE,PCP [Primary Care Provider] -
[2017-10-19] MEDS: Azithromycin 500 MG in D5% in Water 250 ML IVPB SCH (15:47)
[2017-10-19] MEDS: Vancomycin Oral Soln 125 MG/2.5 ML UDC PO SCH ×2 (16:24→20:53)
[2017-10-19] MEDS: Aspirin Enteric Coated 81 MG Tablet PO SCH (20:52)
[2017-10-19] MEDS: Insulin DETEMIR 100 UNIT/ML X5UNITS SQ SCH (20:53)
[2017-10-19] MEDS ORDERED: Levofloxacin 750 MG/150 ML 750 MG/150 ML BAG IVPB SCH (22:00)
[2017-10-20] MEDS: 0.9 % Sodium Chloride 1,000 ML IVC SCH ×2 (00:18→13:09)
[2017-10-20 00:49] LABS: Basophils % 0.2 %; Eosinophils # 0.1 K/mcL (0.0-0.6); Hematocrit 30.7 % (35.3-44.9); Hemoglobin 9.8 g/dL (11.5-15.4); Immature Granulocytes % 1.3 % (0-4); Lymphocytes # 1.1 K/mcL (0.6-4.6); Lymphocytes % 8.6 %; Mean Corpuscular HGB Conc 31.9 g/dL (31.6-35.5); Mean Corpuscular Hemoglobin 30.9 pg (28.0-33.3); Mean Corpuscular Volume 96.8 fL (83.0-100.0); Mean Platelet Volume 11.8 fL (9.4-12.4); Monocytes # 1.3 K/mcL (0.0-1.3); Monocytes % 10.1 %; Neutrophils # 10.4 K/mcL (1.6-8.9); Platelet Count 107 K/mcL (140-400); Red Blood Count 3.17 M/mcL (3.82-4.97); Red Cell Distribution Width 13.3 % (11.5-14.5); Segmented Neutrophils % 78.8 %
[2017-10-20 01:10] LABS: Albumin 2.6 g/dL (3.5-5.7); Albumin/Globulin Ratio 1.2 (1.1-2.2); Bilirubin,Total 0.5 mg/dL (0.3-1.0); Globulin 2.2 g/dL (2.4-3.5); Magnesium 1.6 mg/dL (1.6-2.6); Phosphorous 2.4 mg/dL (2.7-4.5); Potassium 3.5 mEq/L (3.5-5.1); Total Protein 4.8 g/dL (6.4-8.9)
[2017-10-20 03:34] LABS: Protein/Creatinine Ratio,Urine 0.55 mg/mg (0.00-0.20)
[2017-10-20] MEDS: *HR* Enoxaparin 30 MG/0.3 ML SYRINGE SQ SCH (06:08)
[2017-10-20] MEDS: Insulin LISPRO 300 UNITS/3 ML VIAL SQ SCH ×4 (07:21→21:06)
[2017-10-20] MEDS: Cholecalciferol (D-3) 1,000 UNIT TABLET PO SCH (09:36)
[2017-10-20] MEDS: amLODIPine 5 MG TABLET PO SCH (09:36)
[2017-10-20] MEDS: FLUoxetine 20 MG CAPSULE PO SCH (09:37)
[2017-10-20] MEDS: predniSONE 1 MG TABLET PO SCH (09:37)
[2017-10-20] MEDS: Nystatin POWDER 30 GM BOTTLE TP SCH ×3 (09:37→21:16)
--- NOTE | 2017-10-20 10:34 | Internal Med Progress Note ---
Date of Encounter: 10/20/17 Time of Encounter: 10:32 - Assessment and plan (1) Clostridium difficile colitis Current Visit: Yes Status: Acute Assessment and plan: Patient with 1-2 day history of abdominal pain nausea vomiting and diarrhea -Diarrhea is improved but still loose -Leukocytosis improved from 25.6 down to 13.2 today -Continuel vancomycin 125 mg 4 times a day -discontinued IV vancomycin and IV Zosyn and IV Levaquin on 10/19 as the patient does not have radiographic evidence of pneumonia or a history to support it; most likely tracheobronchitis -will monitor Leukocytosis -Discontinue loperamide (2) Tracheobronchitis Current Visit: Yes Status: Acute Assessment and plan: She will reported several month history of cough that is intermittently productive with light yellow sputum Doubt hospital associated pneumonia secondary to history and no radiographic evidence Discontinue IV vancomycin and Zosyn and Levaquin especially in the light of clostridium difficile colitis infection Continue azithromycin for suspected tracheobronchitis Afebrile (3) Thrombocytopenia Current Visit: Yes Status: Acute Assessment and plan: Patient with chronic history of thrombocytopenia at baseline seems to be between 100K -120K -Platelets are increased 107K today -Likely secondary to infection versus IV antibiotics -Continue low molecular weight heparin for DVT prophylaxis for now -Check CBC tomorrow (4) CKD (chronic kidney disease) stage 4, GFR 15-29 ml/min Current Visit: Yes Status: Chronic Assessment and plan: Creatinine at baseline. The patient's baseline is between 1.6 and 2.0 Gentle hydration with IV NS; currently seems adequate for hydration, may need to increase if Diarrhea continues Encourage PO hydration. No evidence of obstruction or hydronephrosis on CT Discontinue Lasix Recheck CMP in AM. Patient with nonnephrotic range proteinuria (5) Diabetes Current Visit: Yes Status: Chronic Assessment and plan: Continue accuchecks low dose SSI QID AC/HS. Continue home long-acting insulin Qualifiers: Diabetes mellitus type: type 2 Diabetes mellitus terminal operator insulin use: with residential use Diabetes mellitus complication status: without complication Qualified Code(s): E11.9 - Type 2 diabetes mellitus without complications; Z79.4 - skilled nursing (current) use of insulin (6) HTN (hypertension) Current Visit: Yes Status: Chronic Assessment and plan: -Discontinued Inderal LA 60 mg and started Inderal immediate release 10 mg 3 times a day secondary to bradycardia -Patient is asymptomatic from bradycardia -Continue telemetry and will monitor Qualifiers: Hypertension type: essential hypertension Qualified Code(s): I10 - Essential (primary) hypertension (7) HLD (hyperlipidemia) Current Visit: Yes Status: Chronic Assessment and plan: Continue home medications. Qualifiers: Hyperlipidemia type: mixed hyperlipidemia Qualified Code(s): E78.2 - Mixed hyperlipidemia (8) COPD (chronic obstructive pulmonary disease) Current Visit: Yes Status: Chronic Assessment and plan: albuterol nebs Q4H PRN SOB/wheezing. Continue home medications. Qualifiers: COPD type: unspecified COPD Qualified Code(s): J44.9 - Chronic obstructive pulmonary disease, unspecified (9) Elevated liver enzymes Current Visit: Yes Status: Acute Assessment and plan: CT abdomen/pelvis and RUQ ultrasound unremarkable. Abdominal pain resolved. Transaminases are approaching normal and hyperbilirubinemia is resolved Will continue to monitor closely. (10) DVT prophylaxis Current Visit: Yes Status: Acute Assessment and plan: Start SCDs and renally dosed lovenox 30 mg SQ QD. (11) Chronic a-fib Current Visit: Yes Status: Acute Assessment and plan: Chronic atrial fibrillation with slow ventricular response. Patient states that she was taken off anticoagulation for atrial fibrillation secondary to her frequent falls. Discontinued Inderal LA 60 mg a started Inderal immediate release 10 mg 3 times a day secondary to bradycardia is asymptomatic Continue telemetry and monitor (12) Hypophosphatemia Current Visit: Yes Status: Acute Assessment and plan: Replace phosphorus with 2 packages of Neutra-Phos - Time Spent With Patient Total time spent is greater than 50% in coordination of care (as documented) at patient's floor/unit and/or counseling patient: 25 - 35 minutes - Subjective Interval history: Patient seen and examined. No acute overnight events. Patient states she feels better today. Patient states that she has not had diarrhea so far this morning and last bowel movement was either very early this morning or last evening. Patient states her abdominal discomfort is improved but still has some tenderness. Patient has been afebrile. She states she is not coughing anymore and is not short of breath and denies any chest pain. Patient denies any nausea, vomiting. - Constitutional Vitals: Temp Pulse Resp BP Pulse Ox 98.1 F 50 18 140/72 97 10/20/17 07:14 07/29/18 07:14 10/20/17 07:14 10/20/17 07:14 10/20/17 07:14 General appearance: Present: cooperative, A&O X 3, pleasant, no acute distress, answers questions appropriately Exam: Constitutional: No acute distress, Alert, nontoxic, membranes moist Psych: AAO x 3 HEENT: NCAT, EOMI Neck: supple, no JVD Cardio: Irregularly irregular and bradycardic, +s1s2, no murmurs/rubs/ronchi, Resp: clear to ascultation bilaterally, no wheezes/rales/ronchi Abd: soft, with mild tenderness to palpation throughout improved from yesterday ,with hyperactive bowel sounds, patient with no rebound guarding or rigidity; Extremities: no clubbing/cyanosis/edema appreciated Neuro: no focal deficits appreciated Lymph: no cervical/supraclavicular adenopahty apprecitated Internal Medicine: Result - Labs CBC & Chem 7: 10/20/17 00:38 10/20/17 00:38 Labs: Short CBC 10/20/17 Range/Units 00:38 WBC 13.2 H (4.3-11.1) K/mcL Hgb 9.8 L (11.5-15.4) g/dL Hct 30.7 L (35.3-44.9) % Plt Count 107 L (140-400) K/mcL Neutrophils # 10.4 H (1.6-8.9) K/mcL BMP 10/20/17 00:38 Sodium 137 Potassium 3.5 Chloride 107 Carbon Dioxide 26 BUN 31 H Creatinine 1.97 H Glucose 162 H Calcium 8.0 L Liver Function 10/20/17 Range/Units 00:38 Total Bilirubin 0.5 (0.3-1.0) mg/dL AST 21 (13-39) Units/L ALT 62 H (7-52) Units/L Alkaline Phosphatase 58 (34-104) Units/L Albumin 2.6 L (3.5-5.7) g/dL - VTE Documentation of Mechanical Device: Intermittent pneumatic compression device Consult Discharge Plan - Plan Referrals: NONE,PCP [Primary Care Provider] -
[2017-10-20] MEDS: Vancomycin Oral Soln 125 MG/2.5 ML UDC PO SCH ×4 (11:14→21:15)
[2017-10-20] MEDS: Azithromycin 500 MG in D5% in Water 250 ML IVPB SCH (15:43)
[2017-10-20] MEDS: Aspirin Enteric Coated 81 MG Tablet PO SCH (21:05)
[2017-10-20] MEDS: Insulin DETEMIR 100 UNIT/ML X5UNITS SQ SCH (21:06)
[2017-10-21 03:58] LABS: Basophils # 0.1 K/mcL (0.0-0.2); Basophils % 0.4 %; Eosinophils # 0.2 K/mcL (0.0-0.6); Eosinophils % 1.5 %; Hematocrit 32.8 % (35.3-44.9); Hemoglobin 10.8 g/dL (11.5-15.4); Immature Granulocytes % 2.3 % (0-4); Lymphocytes # 1.6 K/mcL (0.6-4.6); Lymphocytes % 11.6 %; Mean Corpuscular HGB Conc 32.9 g/dL (31.6-35.5); Mean Corpuscular Hemoglobin 31.9 pg (28.0-33.3); Mean Corpuscular Volume 96.8 fL (83.0-100.0); Mean Platelet Volume 11.6 fL (9.4-12.4); Monocytes # 1.5 K/mcL (0.0-1.3); Monocytes % 10.6 %; Neutrophils # 10.2 K/mcL (1.6-8.9); Platelet Count 139 K/mcL (140-400); Red Blood Count 3.39 M/mcL (3.82-4.97); Red Cell Distribution Width 13.3 % (11.5-14.5); Segmented Neutrophils % 73.6 %
[2017-10-21] MEDS: 0.9 % Sodium Chloride 1,000 ML IVC SCH ×2 (04:14→16:00)
[2017-10-21 04:19] LABS: Magnesium 1.6 mg/dL (1.6-2.6); Phosphorous 3.2 mg/dL (2.7-4.5); Potassium 3.6 mEq/L (3.5-5.1)
[2017-10-21] MEDS: *HR* Enoxaparin 30 MG/0.3 ML SYRINGE SQ SCH (05:34)
[2017-10-21] MEDS: Cholecalciferol (D-3) 1,000 UNIT TABLET PO SCH (09:05)
[2017-10-21] MEDS: FLUoxetine 20 MG CAPSULE PO SCH (09:05)
[2017-10-21] MEDS: predniSONE 1 MG TABLET PO SCH (09:05)
[2017-10-21] MEDS: amLODIPine 5 MG TABLET PO SCH (09:06)
[2017-10-21] MEDS: Insulin LISPRO 300 UNITS/3 ML VIAL SQ SCH ×4 (09:06→21:57)
[2017-10-21] MEDS: Nystatin POWDER 30 GM BOTTLE TP SCH ×3 (09:06→22:03)
--- NOTE | 2017-10-21 10:39 | Internal Med Progress Note ---
Hospitalist Progress Note - Encounter Date of Encounter: 10/21/17 Time of Encounter: 10:35 - Subjective Interval History: Patient seen and examined. No acute overnight events. Patient with much more energy today. Patient states that she continues to have diarrhea and that she feels fatigued. Patient states that her abdominal discomfort is improving. Patient has been afebrile. Patient denies any chest pain, shortness of breath, vomiting, headache. - Exam Vitals: Temp Pulse Resp BP Pulse Ox 97.5 F L 64 16 134/54 97 10/21/17 06:35 10/21/17 06:35 10/21/17 06:35 10/21/17 06:35 10/21/17 06:35 Exam: Constitutional: No acute distress, Alert Psych: AAO x 3 HEENT: NCAT, EOMI Neck: supple, no JVD Cardio: Irregularly irregular and bradycardic, no murmurs or gallops appreciated Resp: clear to ascultation bilaterally, no wheezes/rales/ronchi Abd: Patient continues to have mild tenderness palpation throughout. Very hyperactive bowel sounds. No guarding rebound or rigidity Extremities: Mild edema in the lower extremities Neuro: no focal deficits appreciated Lymph: no cervical/supraclavicular adenopahty apprecitated - Assessment and Plan (1) Clostridium difficile colitis Current Visit: Yes Status: Acute Assessment and Plan: Patient with 1-2 day history of abdominal pain nausea vomiting and diarrhea -Diarrhea is improved but still loose -Leukocytosis improved from 25.6 down to 13.2 yesterday 13.9 today -Continuel vancomycin 125 mg 4 times a day -discontinued IV vancomycin and IV Zosyn and IV Levaquin on 10/19 as the patient does not have radiographic evidence of pneumonia or a history to support it; most likely tracheobronchitis -will monitor Leukocytosis -No loperamide (2) Tracheobronchitis Current Visit: Yes Status: Acute Assessment and Plan: She will reported several month history of cough that is intermittently productive with light yellow sputum Doubt hospital associated pneumonia secondary to history and no radiographic evidence Discontinue IV vancomycin and Zosyn and Levaquin especially in the light of clostridium difficile colitis infection Continue azithromycin for suspected tracheobronchitis Can likely discontinue soon Afebrile (3) Thrombocytopenia Current Visit: Yes Status: Acute Assessment and Plan: Patient with chronic history of thrombocytopenia at baseline seems to be between 100K -120K -Platelets continue to increase upto 139K today -Likely secondary to infection versus IV antibiotics -Continue low molecular weight heparin for DVT prophylaxis for now -Check CBC tomorrow (4) CKD (chronic kidney disease) stage 4, GFR 15-29 ml/min Current Visit: Yes Status: Chronic Assessment and Plan: Creatinine at baseline. The patient's baseline is between 1.6 and 2.0 Serum creatinine improving to 1.64 today Gentle hydration with IV NS; currently seems adequate for hydration, may need to increase if Diarrhea continues Encourage PO hydration. No evidence of obstruction or hydronephrosis on CT Continue to hold lasix Recheck CMP in AM. Patient with nonnephrotic range proteinuria (5) Diabetes Current Visit: Yes Status: Chronic Assessment and Plan: Continue accuchecks low dose SSI QID AC/HS. Continue home long-acting insulin (6) HTN (hypertension) Current Visit: Yes Status: Chronic Assessment and Plan: -Discontinued Inderal LA 60 mg and started Inderal immediate release 10 mg 3 times a day secondary to bradycardia -Patient is asymptomatic from bradycardia; heart rate improved with new Inderal dose -Continue telemetry and will monitor (7) HLD (hyperlipidemia) Current Visit: Yes Status: Chronic Assessment and Plan: Continue home medications. (8) COPD (chronic obstructive pulmonary disease) Current Visit: Yes Status: Chronic Assessment and Plan: albuterol nebs Q4H PRN SOB/wheezing. Continue home medications. (9) Elevated liver enzymes Current Visit: Yes Status: Acute Assessment and Plan: CT abdomen/pelvis and RUQ ultrasound unremarkable. Abdominal pain resolved. Transaminases nearly resolved yesterday we will check an a.m. Will continue to monitor closely. (10) DVT prophylaxis Current Visit: Yes Status: Acute Assessment and Plan: Start SCDs and renally dosed lovenox 30 mg SQ QD. (11) Chronic a-fib Current Visit: Yes Status: Acute Assessment and Plan: Chronic atrial fibrillation with slow ventricular response. Patient states that she was taken off anticoagulation for atrial fibrillation secondary to her frequent falls. Discontinued Inderal LA 60 mg a started Inderal immediate release 10 mg 3 times a day secondary to bradycardia is asymptomatic Continue Inderal 10 mg 3 times a day; heart rate improved Continue telemetry and monitor (12) Hypophosphatemia Current Visit: Yes Status: Acute Assessment and Plan: Resolved DVT Prophylaxis: Lovenox - Time Spent with Patient Total time spent is greater than 50% in coordination of care (as documented) at patient's floor/unit and/or counseling patient: 25 - 35 minutes Plan of Care Discussed with: patient Internal Medicine: Result - Labs CBC & Chem 7: 10/21/17 03:34 10/21/17 03:34 Labs: Short CBC 10/21/17 Range/Units 03:34 WBC 13.9 H (4.3-11.1) K/mcL Hgb 10.8 L (11.5-15.4) g/dL Hct 32.8 L (35.3-44.9) % Plt Count 139 L (140-400) K/mcL Neutrophils # 10.2 H (1.6-8.9) K/mcL BMP 10/21/17 03:34 Sodium 139 Potassium 3.6 Chloride 110 H Carbon Dioxide 24 BUN 29 H Creatinine 1.64 H Glucose 82 Calcium 8.0 L - VTE Documentation of Mechanical Device: Intermittent pneumatic compression device Consult Discharge Plan - Plan Referrals: NONE,PCP [Primary Care Provider] - (5) Diabetes Qualifiers: Diabetes mellitus type: type 2 Diabetes mellitus terminal carman insulin use: with terminal carman use Diabetes mellitus complication status: without complication Qualified Code(s): E11.9 - Type 2 diabetes mellitus without complications; Z79.4 - termite control technician (current) use of insulin (6) HTN (hypertension) Qualifiers: Hypertension type: essential hypertension Qualified Code(s): I10 - Essential (primary) hypertension (7) HLD (hyperlipidemia) Qualifiers: Hyperlipidemia type: mixed hyperlipidemia Qualified Code(s): E78.2 - Mixed hyperlipidemia (8) COPD (chronic obstructive pulmonary disease) Qualifiers: COPD type: unspecified COPD Qualified Code(s): J44.9 - Chronic obstructive pulmonary disease, unspecified
[2017-10-21] MEDS: Vancomycin Oral Soln 125 MG/2.5 ML UDC PO SCH ×4 (12:18→21:59)
[2017-10-21] MEDS: Azithromycin 500 MG in D5% in Water 250 ML IVPB SCH (15:59)
[2017-10-21] MEDS: Aspirin Enteric Coated 81 MG Tablet PO SCH (21:59)
[2017-10-21] MEDS: Insulin DETEMIR 100 UNIT/ML X5UNITS SQ SCH (21:59)
[2017-10-22 05:14] LABS: Basophils # 0.1 K/mcL (0.0-0.2); Basophils % 0.3 %; Eosinophils # 0.2 K/mcL (0.0-0.6); Eosinophils % 1.1 %; Hematocrit 34.4 % (35.3-44.9); Lymphocytes # 1.1 K/mcL (0.6-4.6); Mean Corpuscular Hemoglobin 30.9 pg (28.0-33.3); Mean Corpuscular Volume 96.6 fL (83.0-100.0); Mean Platelet Volume 10.6 fL (9.4-12.4); Monocytes # 2.1 K/mcL (0.0-1.3); Monocytes % 11.9 %; Neutrophils # 13.9 K/mcL (1.6-8.9); Platelet Count 137 K/mcL (140-400); Red Blood Count 3.56 M/mcL (3.82-4.97); Red Cell Distribution Width 13.4 % (11.5-14.5); Segmented Neutrophils % 77.7 %
[2017-10-22 05:30] LABS: Albumin 2.8 g/dL (3.5-5.7); Albumin/Globulin Ratio 1.2 (1.1-2.2); Bilirubin,Total 0.5 mg/dL (0.3-1.0); Calcium 8.3 mg/dL (8.6-10.3); Globulin 2.3 g/dL (2.4-3.5); Magnesium 1.5 mg/dL (1.6-2.6); Phosphorous 2.3 mg/dL (2.7-4.5); Potassium 3.6 mEq/L (3.5-5.1); Total Protein 5.1 g/dL (6.4-8.9)
[2017-10-22] MEDS: *HR* Enoxaparin 30 MG/0.3 ML SYRINGE SQ SCH (05:43)
[2017-10-22] MEDS: 0.9 % Sodium Chloride 1,000 ML IVC SCH (06:44)
[2017-10-22] MEDS ORDERED: Furosemide 40 MG/4 ML VIAL IVP ONE ×3 (09:16→18:00)
[2017-10-22] MEDS: predniSONE 1 MG TABLET PO SCH (09:17)
[2017-10-22] MEDS: Vancomycin Oral Soln 125 MG/2.5 ML UDC PO SCH ×4 (09:18→21:14)
[2017-10-22] MEDS: Cholecalciferol (D-3) 1,000 UNIT TABLET PO SCH (09:18)
[2017-10-22] MEDS: FLUoxetine 20 MG CAPSULE PO SCH (09:18)
[2017-10-22] MEDS: amLODIPine 5 MG TABLET PO SCH (09:18)
[2017-10-22] MEDS: Insulin LISPRO 300 UNITS/3 ML VIAL SQ SCH ×4 (09:19→21:57)
--- NOTE | 2017-10-22 09:20 | Internal Med Progress Note ---
Hospitalist Progress Note - Encounter Date of Encounter: 10/22/17 Time of Encounter: 09:18 - Subjective Interval History: Patient denies diarrhea. States appetite good. Complains of shortness of breath this morning. Denies chest pain, n/v. Had one slightly loose BM this morning per patient. Denies fevers/chills. - Exam Vitals: Temp Pulse Resp BP Pulse Ox 98.1 F 66 18 148/70 93 10/22/17 06:55 10/22/17 06:55 10/22/17 06:55 10/22/17 06:55 10/22/17 06:55 Exam: Gen: mild resp distress CVS: RRR Lungs: fair aeration of lungs. + rales bilaterally. No wheezing. Abd: Soft, NT/ND Ext: 1+ bipedal pitting edema. - Assessment and Plan (1) Acute respiratory distress Current Visit: Yes Status: Acute Assessment and Plan: Suspect fluid overload vs COPD exacerbation. Patient required gentle IV hydration on admission and Lasix was held because she was dehydrated. now having signs/symptoms fluid overload on exam. No wheezing. - Follow-up with 2V x-ray - Duo Neb therapy - Increase to therapeutic steroid dose if seems to worsen or develops wheezing. - Resume Lasix today and monitor I/Os. (2) Clostridium difficile colitis Current Visit: Yes Status: Acute Assessment and Plan: Patient with 1-2 day history of abdominal pain nausea vomiting and diarrhea -Diarrhea is improved but still loose -Leukocytosis improved from 25.6 down to 13.2 yesterday 13.9 today -discontinued IV vancomycin and IV Zosyn and IV Levaquin on 10/19 as the patient does not have radiographic evidence of pneumonia or a history to support it; most likely tracheobronchitis -No loperamide -Continuel vancomycin 125 mg 4 times a dayd (3) HTN (hypertension) Current Visit: Yes Status: Chronic Assessment and Plan: -Discontinued Inderal LA 60 mg and started Inderal immediate release 10 mg 3 times a day secondary to bradycardia -Patient is asymptomatic from bradycardia; heart rate improved with new Inderal dose -Continue telemetry and will monitor Currently no acute issues. (4) Diabetes Current Visit: Yes Status: Chronic Assessment and Plan: Continue accuchecks low dose SSI QID AC/HS. Continue home long-acting insulin Currently glucose withiin acceptable limits. (5) HLD (hyperlipidemia) Current Visit: Yes Status: Chronic Assessment and Plan: Continue home medications. (6) COPD (chronic obstructive pulmonary disease) Current Visit: Yes Status: Chronic Assessment and Plan: albuterol nebs Q4H PRN SOB/wheezing. Continue home medications. Currently respiratory distress. There is possibly COPD component but there is no wheezing on exam. Obtain 2V CXR. Increase dose of steroid if wheezing. (7) CKD (chronic kidney disease) stage 4, GFR 15-29 ml/min Current Visit: Yes Status: Chronic Assessment and Plan: No evidence of obstruction or hydronephrosis on CT Patient with nonnephrotic range proteinuria Patient Lasix was held on admission for dehydration, now fluid overloaded will restart Lasix. Kidney function improved. (8) Elevated liver enzymes Current Visit: Yes Status: Acute Assessment and Plan: CT abdomen/pelvis and RUQ ultrasound unremarkable. Abdominal pain resolved. Transaminases nearly resolved yesterday we will check an a.m. Improved. (9) Tracheobronchitis Current Visit: Yes Status: Acute Assessment and Plan: She will reported several month history of cough that is intermittently productive with light yellow sputum Doubt hospital associated pneumonia secondary to history and no radiographic evidence Discontinue IV vancomycin and Zosyn and Levaquin especially in the light of clostridium difficile colitis infection Continue azithromycin for suspected tracheobronchitis Afebrile Follow-up with 2V x-ray today. (10) Thrombocytopenia Current Visit: Yes Status: Acute Assessment and Plan: Patient with chronic history of thrombocytopenia at baseline seems to be between 100K -120K -Likely secondary to infection versus IV antibiotics -Continue low molecular weight heparin for DVT prophylaxis for now Monitor CBC (11) Chronic a-fib Current Visit: Yes Status: Acute Assessment and Plan: Chronic atrial fibrillation with slow ventricular response. Patient states that she was taken off anticoagulation for atrial fibrillation secondary to her frequent falls. Discontinued Inderal LA 60 mg a started Inderal immediate release 10 mg 3 times a day secondary to bradycardia is asymptomatic Continue Inderal 10 mg 3 times a day; heart rate improved Continue telemetry and monitor (12) Hypophosphatemia Current Visit: Yes Status: Acute Assessment and Plan: Resolved (13) DVT prophylaxis Current Visit: Yes Status: Acute Assessment and Plan: Start SCDs and renally dosed lovenox 30 mg SQ QD. - Time Spent with Patient Total time spent is greater than 50% in coordination of care (as documented) at patient's floor/unit and/or counseling patient: Internal Medicine: Result - Labs CBC & Chem 7: 10/22/17 04:51 10/22/17 04:51 Labs: Short CBC 10/22/17 Range/Units 04:51 WBC 17.9 H (4.3-11.1) K/mcL Hgb 11.0 L (11.5-15.4) g/dL Hct 34.4 L (35.3-44.9) % Plt Count 137 L (140-400) K/mcL Neutrophils # 13.9 H (1.6-8.9) K/mcL BMP 10/22/17 04:51 Sodium 137 Potassium 3.6 Chloride 109 H Carbon Dioxide 22 L BUN 19 Creatinine 1.40 H Glucose 118 H Calcium 8.3 L Liver Function 10/22/17 Range/Units 04:51 Total Bilirubin 0.5 (0.3-1.0) mg/dL AST 15 (13-39) Units/L ALT 41 (7-52) Units/L Alkaline Phosphatase 64 (34-104) Units/L Albumin 2.8 L (3.5-5.7) g/dL - VTE Documentation of Mechanical Device: Intermittent pneumatic compression device Consult Discharge Plan - Plan Referrals: NONE,PCP [Primary Care Provider] - (3) HTN (hypertension) Qualifiers: Hypertension type: essential hypertension Qualified Code(s): I10 - Essential (primary) hypertension (4) Diabetes Qualifiers: Diabetes mellitus type: type 2 Diabetes mellitus 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
[2017-10-22] MEDS: Nystatin POWDER 30 GM BOTTLE TP SCH ×3 (12:04→22:00)
[2017-10-22] MEDS: Azithromycin 500 MG in D5% in Water 250 ML IVPB SCH (16:26)
[2017-10-22] MEDS: Aspirin Enteric Coated 81 MG Tablet PO SCH (21:12)
[2017-10-22] MEDS: Insulin DETEMIR 100 UNIT/ML X5UNITS SQ SCH (21:58)
[2017-10-23 05:28] LABS: Basophils # 0.1 K/mcL (0.0-0.2); Basophils % 0.3 %; Eosinophils # 0.2 K/mcL (0.0-0.6); Eosinophils % 1.2 %; Hematocrit 32.7 % (35.3-44.9); Immature Granulocytes % 3.9 % (0-4); Lymphocytes # 1.3 K/mcL (0.6-4.6); Lymphocytes % 8.1 %; Mean Corpuscular HGB Conc 33.6 g/dL (31.6-35.5); Mean Corpuscular Volume 95.1 fL (83.0-100.0); Mean Platelet Volume 11.2 fL (9.4-12.4); Monocytes # 1.8 K/mcL (0.0-1.3); Monocytes % 11.9 %; Neutrophils # 11.6 K/mcL (1.6-8.9); Platelet Count 126 K/mcL (140-400); Red Blood Count 3.44 M/mcL (3.82-4.97); Red Cell Distribution Width 13.4 % (11.5-14.5); Segmented Neutrophils % 74.6 %
[2017-10-23] MEDS: *HR* Enoxaparin 40 MG/0.4 ML SYRINGE SQ SCH (05:44)
[2017-10-23 05:50] LABS: Calcium 8.8 mg/dL (8.6-10.3); Potassium 3.6 mEq/L (3.5-5.1)
[2017-10-23] MEDS: predniSONE 1 MG TABLET PO SCH (08:29)
[2017-10-23] MEDS: Cholecalciferol (D-3) 1,000 UNIT TABLET PO SCH (08:29)
[2017-10-23] MEDS: FLUoxetine 20 MG CAPSULE PO SCH (08:29)
[2017-10-23] MEDS: amLODIPine 5 MG TABLET PO SCH (08:30)
[2017-10-23] MEDS: Vancomycin Oral Soln 125 MG/2.5 ML UDC PO SCH ×4 (08:30→21:56)
[2017-10-23] MEDS: Insulin LISPRO 300 UNITS/3 ML VIAL SQ SCH ×4 (08:31→21:56)
[2017-10-23] MEDS: Nystatin POWDER 30 GM BOTTLE TP SCH ×3 (08:31→21:57)
--- NOTE | 2017-10-23 10:11 | Event Note ---
Date of Encounter: 10/23/17 Time of Encounter: 09:00 Medical Student Note-Anton Shin, OMS-IV Subjective: Ms. Davis was sitting up, and watching TV upon my arrival. She states that she feeling a little cold, but denies any other symptoms at this time. Upon questioning she is alert and oriented x 3. The patient states that she did not sleep well last night, however she feels as though her shortness of breath is greatly improved today. Additionally the patient continues to have a cough that comes and goes. Ms. Davis denies any chest pain, abdominal pain, nausea or vomiting, fever, and chills. She also states that she has been urinating well and had a bowel movement today. Objective: Vitals: Temperature-98.8, HR-70, RR-15, RP-159/82, O2-100 General Appearance: Patient is alert and oriented x 3, not in any acute distress , appears older than stated age Head exam: Atraumatic, normocephalic Eye exam: PERRL, conjuntiva pink, sclera anicteric Neck exam: Trachea midline Respiratory exam: No wheezing, rales, or rhonci Cardiology exam: RRR, +S1, +S2 Gastrointestinal exam: Normal bowel sounds, soft Extremities exam: warm without tenderness or peripheral edema Neurological exam: CN II-XII intact, no focal deficits, alert and oriented x 3 Skin exam: Dry and intact Assessment: 1. Acute Respiratory Distress 2. Clostridium Difficile Colitis 3. COPD Exacerbation 4. Atrial Fibrillation 5. Diabetes 6. Hypertension 7. Hyperlipidemia 8. Tracheobronchitis 9. CKD 10. DVT Prophylaxis Plan: 1. Patient states that her breathing is much better today, however she continues to remain on 2L of oxygen. Her O2 saturation is at 100 and on lung auscultation no wheezing is heard. Patient was placed on 40 mg IV Lasix yesterday for fluid retention and was discontinued on the same day. On physical exam the patient shows no signs of peripheral edema and her breathing is being managed with Albuterol Q4 hours, Prednisone 3 mg PO, and nasal cannula. 2. Patient initially presented with abdominal pain and has had diarrhea which appears to have resolved. She denies any abdominal pain at this time, as well as nausea and vomiting. Fecal sample was positive for C.Diff toxin B gene via PCR. Patient was started on Vancomyocin PO 125 4x a day and this should be continued. Patient's initial WBC was 25.6 but this has been trending down to a current level of 15.5 (10/23/17) 3. The patient has a previous history of COPD. At this time the patient is not complaining of any dyspnea, however she is currently on 2L of oxygen as well as Albuterol Q4 hours, and Prednisone 3 mg PO. Chest x-ray findings on 10/22 were most compatible with pulmonary edema and probable mild to moderate congestive heart failure. Possibility of superimposed pneumonia in either lung base cannot be excluded. Should the patient's respiratory status decline steroids can be increased. 4. Patient has a previous history of Atrial Fibrillation and his EKG upon admission revealed Atrial Fibrillation with slow ventricular contraction. Patient is currently being rate controlled with Metoprolol. Heart rate is currently 70 and in regular rhythm 5. Patient has a previous diagnosis of Diabetes, currently being treated with sliding scale insulin. Latest blood glucose reading was 110. Continue to monitor 6. Patient has a previous diagnosis of hypertension. Currently being treated with Metoprolol. Vital signs reveal a heart rate of 70 and a blood pressure of 159/82. Continue current dose and monitor on telemetry 7. The patient has a previous history of hyperlipidemia. No lipid panel available, patient is currently receiving Simvastatin and denies any muscle aches or pains. 8. Ms. Caro has had a productive cough for several months with yellow sputum. Clinically the patient appears well and states that she is feeling better. Chest x-ray could not exclude the possibility of superimposed pneumonia in either lung base. Patient is afebrile and WBC has been trending down. Azithromycin has been discontinued and the patient should continue to be monitored. 9. Patient has a history of stage 4 chronic kidney disease. Estimated GFR was 42 and the patient is not currently complaining of urinary symptoms. No evidence of obstruction or hydronephrosis on CT. Lasix has been discontinued and the patient's latest Creatinine was 1.24 10 Patient is currently receiving anticoagulation with Lovenox. No complaints of any calf/leg tenderness and there is no swelling of the lower extremities
[2017-10-23] MEDS: Furosemide 20 MG/2 ML VIAL IVP SCH ×2 (15:01→21:56)
--- NOTE | 2017-10-23 16:15 | Internal Med Progress Note ---
Hospitalist Progress Note - Encounter Date of Encounter: 10/23/17 Time of Encounter: 16:24 - Subjective Interval History: Patient denies diarrhea. appetitei good Shortness of breath has improved but still on O2. - Exam Vitals: Temp Pulse Resp BP Pulse Ox 97.9 F 52 15 163/69 99 10/23/17 15:26 10/23/17 15:26 10/23/17 15:26 10/23/17 15:26 10/23/17 15:26 - Assessment and Plan (1) Acute respiratory distress Current Visit: Yes Status: Acute Assessment and Plan: Suspect fluid overload vs COPD exacerbation. Patient required gentle IV hydration on admission and Lasix was held because she was dehydrated. now having signs/symptoms fluid overload on exam. No wheezing. - Chest x-ray shows pulmonary edema - Duo Neb therapy - Echocardiogram from 07/2017 reviewed relatively unremarkable. Continue IV Lasix (2) Clostridium difficile colitis Current Visit: Yes Status: Acute Assessment and Plan: Patient with 1-2 day history of abdominal pain nausea vomiting and diarrhea -Diarrhea is improved but still loose -Leukocytosis improved from 25.6 down to 13.2 yesterday 13.9 today -discontinued IV vancomycin and IV Zosyn and IV Levaquin on 10/19 as the patient does not have radiographic evidence of pneumonia or a history to support it; most likely tracheobronchitis -PO vancomycin 125 mg 4 times a day (3) HTN (hypertension) Current Visit: Yes Status: Chronic Assessment and Plan: - Continue Norvasc, propranolol - add hydralazine IV prn (4) Diabetes Current Visit: Yes Status: Chronic Assessment and Plan: Continue accuchecks low dose SSI QID AC/HS. Continue home long-acting insulin Currently glucose withiin acceptable limits. (5) HLD (hyperlipidemia) Current Visit: Yes Status: Chronic Assessment and Plan: Continue home medications. (6) COPD (chronic obstructive pulmonary disease) Current Visit: Yes Status: Chronic Assessment and Plan: albuterol nebs Q4H PRN SOB/wheezing. Continue home medications. (7) CKD (chronic kidney disease) stage 4, GFR 15-29 ml/min Current Visit: Yes Status: Chronic Assessment and Plan: No evidence of obstruction or hydronephrosis on CT Patient with nonnephrotic range proteinuria Continue diuresis as renal function monitored (8) Elevated liver enzymes Current Visit: Yes Status: Acute Assessment and Plan: CT abdomen/pelvis and RUQ ultrasound unremarkable. Likely dehydration, n/v related. Improved (9) Tracheobronchitis Current Visit: Yes Status: Acute Assessment and Plan: She will reported several month history of cough that is intermittently productive with light yellow sputum Doubt hospital associated pneumonia secondary to history and no radiographic evidence Discontinue IV vancomycin and Zosyn and Levaquin especially in the light of clostridium difficile colitis infection Afebrile Completed 5 days of Azithromycin treatment. (10) Thrombocytopenia Current Visit: Yes Status: Acute Assessment and Plan: Patient with chronic history of thrombocytopenia at baseline seems to be between 100K -120K -Likely secondary to infection versus IV antibiotics -Continue low molecular weight heparin for DVT prophylaxis for now Monitor CBC (11) Chronic a-fib Current Visit: Yes Status: Acute Assessment and Plan: Chronic atrial fibrillation with slow ventricular response. Patient states that she was taken off anticoagulation for atrial fibrillation secondary to her frequent falls. Discontinued Inderal LA 60 mg a started Inderal immediate release 10 mg 3 times a day secondary to bradycardia is asymptomatic Continue Inderal 10 mg 3 times a day; heart rate improved (12) Hypophosphatemia Current Visit: Yes Status: Acute Assessment and Plan: Resolved (13) DVT prophylaxis Current Visit: Yes Status: Acute Assessment and Plan: Start SCDs and renally dosed lovenox 30 mg SQ QD. - Time Spent with Patient Total time spent is greater than 50% in coordination of care (as documented) at patient's floor/unit and/or counseling patient: Internal Medicine: Result - Labs CBC & Chem 7: 10/23/17 05:12 10/23/17 05:12 Labs: Short CBC 10/23/17 Range/Units 05:12 WBC 15.5 H (4.3-11.1) K/mcL Hgb 11.0 L (11.5-15.4) g/dL Hct 32.7 L (35.3-44.9) % Plt Count 126 L (140-400) K/mcL Neutrophils # 11.6 H (1.6-8.9) K/mcL BMP 10/23/17 05:12 Sodium 137 Potassium 3.6 Chloride 106 Carbon Dioxide 26 BUN 16 Creatinine 1.24 H Glucose 110 H Calcium 8.8 - VTE Documentation of Mechanical Device: Intermittent pneumatic compression device Consult Discharge Plan - Plan Instructions: Atrial Fibrillation (DC), Calcium and Osteoporosis (DC), Diabetes Mellitus Type 2 in Adults (DC), Chronic Obstructive Pulmonary Disease ( DC), Clostridium Difficile Infection (DC), Chronic Hypertension (DC), Pneumonia (DC) Referrals: NONE,PCP [Primary Care Provider] - (3) HTN (hypertension) Qualifiers: Hypertension type: essential hypertension Qualified Code(s): I10 - Essential (primary) hypertension (4) Diabetes Qualifiers: Diabetes mellitus type: type 2 Diabetes mellitus fdc insulin use: with fdc use Diabetes mellitus complication status: without complication Qualified Code(s): E11.9 - Type 2 diabetes mellitus without complications; Z79.4 - jail (current) use of insulin (5) HLD (hyperlipidemia) Qualifiers: Hyperlipidemia type: unspecified Qualified Code(s): E78.5 - Hyperlipidemia, unspecified (6) COPD (chronic obstructive pulmonary disease) Qualifiers: COPD type: unspecified COPD Qualified Code(s): J44.9 - Chronic obstructive pulmonary disease, unspecified
[2017-10-23] MEDS: Aspirin Enteric Coated 81 MG Tablet PO SCH (21:54)
[2017-10-23] MEDS: Insulin DETEMIR 100 UNIT/ML X5UNITS SQ SCH (21:56)
[2017-10-24 03:49] LABS: Basophils # 0.1 K/mcL (0.0-0.2); Basophils % 0.6 %; Eosinophils # 0.2 K/mcL (0.0-0.6); Eosinophils % 1.5 %; Hematocrit 32.5 % (35.3-44.9); Hemoglobin 10.3 g/dL (11.5-15.4); Immature Granulocytes % 4.5 % (0-4); Lymphocytes # 1.7 K/mcL (0.6-4.6); Lymphocytes % 13.3 %; Mean Corpuscular HGB Conc 31.7 g/dL (31.6-35.5); Mean Corpuscular Hemoglobin 30.2 pg (28.0-33.3); Mean Corpuscular Volume 95.3 fL (83.0-100.0); Mean Platelet Volume 11.1 fL (9.4-12.4); Monocytes # 1.4 K/mcL (0.0-1.3); Monocytes % 10.9 %; Neutrophils # 8.7 K/mcL (1.6-8.9); Platelet Count 135 K/mcL (140-400); Red Blood Count 3.41 M/mcL (3.82-4.97); Red Cell Distribution Width 13.4 % (11.5-14.5); Segmented Neutrophils % 69.2 %
[2017-10-24 04:17] LABS: Calcium 9.3 mg/dL (8.6-10.3); Potassium 3.6 mEq/L (3.5-5.1)
[2017-10-24] MEDS: *HR* Enoxaparin 40 MG/0.4 ML SYRINGE SQ SCH (06:48)
[2017-10-24] MEDS: Cholecalciferol (D-3) 1,000 UNIT TABLET PO SCH (08:58)
[2017-10-24] MEDS: Furosemide 20 MG/2 ML VIAL IVP SCH ×2 (08:58→22:40)
[2017-10-24] MEDS: FLUoxetine 20 MG CAPSULE PO SCH (08:58)
[2017-10-24] MEDS: predniSONE 1 MG TABLET PO SCH (08:59)
[2017-10-24] MEDS: amLODIPine 5 MG TABLET PO SCH (08:59)
[2017-10-24] MEDS: Vancomycin Oral Soln 125 MG/2.5 ML UDC PO SCH ×4 (09:00→22:38)
[2017-10-24] MEDS: Insulin LISPRO 300 UNITS/3 ML VIAL SQ SCH ×4 (09:00→22:39)
[2017-10-24] MEDS: Nystatin POWDER 30 GM BOTTLE TP SCH ×3 (09:11→22:40)
--- NOTE | 2017-10-24 09:32 | Event Note ---
<Anton Shin - Last Filed: 10/24/17 13:12> Date of Encounter: 10/24/17 Time of Encounter: 08:25 Medical Student Note-Anton Shin OMS-IV Subjective: Ms. Davis was asleep upon my arrival but was easily awoken by speaking to her. Patient is alert and oriented x 3 and states that she slept okay last night. Denies any chest pain, abdominal pain, nausea or vomiting, fever, and chills. She also states that she has been urinating well and had a bowel movement 2 days, is no longer experiencing diarrhea.Patient appears to be agitated this morning. She states that she has been woken several times this morning and is tired. Gives one-word answers to all questions. Objective: Vitals: Temperature-98, HR-54, RR-15, RP-165/81, O2-100 (On 3L) General Appearance: Patient is alert and oriented x 3, appears agitated this morning Head exam: Atraumatic, normocephalic Eye exam: PERRL, conjuntiva pink, sclera anicteric Neck exam: Trachea midline Respiratory exam: No wheezing, rales, or rhonci Cardiology exam: RRR, +S1, +S2 Gastrointestinal exam: Normal bowel sounds, soft Extremities exam: warm without tenderness or peripheral edema Neurological exam: CN II-XII intact, no focal deficits, alert and oriented x 3 Skin exam: Dry and intact Assessment: 1. Acute Respiratory Distress 2. Clostridium Difficile Colitis 3. COPD Exacerbation 4. Atrial Fibrillation 5. Bradycardia 6. Diabetes 7. Hypertension 8. Hyperlipidemia 9. Tracheobronchitis 10. CKD 11. DVT Prophylaxis Plan: 1. Patient states that her breathing is much better today, however she continues to remain on 3L of oxygen. Her O2 saturation is at 99 and on lung auscultation no wheezing is heard. Patient is currently on Lasix 20 mg IV. On physical exam the patient shows no signs of peripheral edema and her breathing is being managed with Albuterol Q4 hours, Prednisone 3 mg PO, and nasal cannula. 2. Patient initially presented with abdominal pain and has had diarrhea which appears to have resolved. She denies any abdominal pain at this time, as well as nausea and vomiting. Fecal sample was positive for C.Diff toxin B gene via PCR. Patient was started on Vancomyocin PO 125 4x a day and this should be continued. Patient's initial WBC was 25.6 but this has been trending down to a current level of 12.5 (10/24/17) 3. The patient has a previous history of COPD. At this time the patient is not complaining of any dyspnea, however she is currently on 3L of oxygen as well as Albuterol Q4 hours, and Prednisone 3 mg PO. Chest x-ray findings on 10/22 were most compatible with pulmonary edema and probable mild to moderate congestive heart failure. Possibility of superimposed pneumonia in either lung base cannot be excluded. Should the patient's respiratory status decline steroids can be increased. 4. Patient has a previous history of Atrial Fibrillation and his EKG upon admission revealed Atrial Fibrillation with slow ventricular contraction. Patient is currently being rate controlled with Metoprolol. Continue to monitor 5. Patient's latest heart rate has been bradycardic, however the patient appears to be asymptomatic. Heart rate is currently 54 and in regular rhythm. Patient's heart has been fluctuating between 50-70 range. Continue to monitor and possibly consider changing dosage of Metoprolol 6. Patient has a previous diagnosis of Diabetes, currently being treated with sliding scale insulin. Latest blood glucose reading was 101. Continue to monitor 7. Patient has a previous diagnosis of hypertension. Currently being treated with Metoprolol. Vital signs reveal a heart rate of 54 and a blood pressure of 165/81. Continue current dose and monitor on telemetry 8. The patient has a previous history of hyperlipidemia. No lipid panel available, patient is currently receiving Simvastatin and denies any muscle aches or pains. 9. Ms. Caro has had a productive cough for several months with yellow sputum. Clinically the patient appears well and states that she is feeling better. Chest x-ray could not exclude the possibility of superimposed pneumonia in either lung base. Patient is afebrile and WBC has been trending down. Azithromycin has been discontinued after 5 days and the patient should continue to be monitored. 10. Patient has a history of stage 4 chronic kidney disease. Estimated GFR was 37 and the patient is not currently complaining of urinary symptoms. No evidence of obstruction or hydronephrosis on CT. Lasix has been discontinued and the patient's latest Creatinine was 1.4 11 Patient is currently receiving anticoagulation with Lovenox. No complaints of any calf/leg tenderness and there is no swelling of the lower extremities <Richard Chirinos - Last Filed: 10/24/17 16:33> Date of Encounter: 10/24/17 I have reviewed medical student note.
[2017-10-24 09:55] LABS: Mycoplasma pneumoniae IgG 0.54 U/L (<=0.09)
--- NOTE | 2017-10-24 16:38 | Internal Med Progress Note ---
Hospitalist Progress Note - Encounter Date of Encounter: 10/24/17 Time of Encounter: 13:00 - Subjective Interval History: Appetite good, denies diarrhea. No fevers/chills, n/v Shortness of breath has improved but still on O2, being weaned. - Exam Vitals: Temp Pulse Resp BP Pulse Ox 98.1 F 66 15 149/72 99 10/24/17 16:00 10/24/17 16:00 10/24/17 16:00 10/24/17 16:00 10/24/17 16:00 - Assessment and Plan (1) Acute respiratory distress Current Visit: Yes Status: Acute Assessment and Plan: Fluid overload which improved significantly Patient required gentle IV hydration on admission and Lasix was held because she was dehydrated. Then developed fluid overload. Now improving with diuresis. - Chest x-ray showed pulmonary edema - Duo Neb therapy - Echocardiogram from 07/2017 reviewed relatively unremarkable. Will give one more dose of IV Lasix Wean O2 today Likely discharge tomorrow to rehab. (2) Clostridium difficile colitis Current Visit: Yes Status: Acute Assessment and Plan: Patient with 1-2 day history of abdominal pain nausea vomiting and diarrhea -Diarrhea is improved but still loose -Leukocytosis improved from 25.6 down to 13.2 yesterday 13.9 today -discontinued IV vancomycin and IV Zosyn and IV Levaquin on 10/19 as the patient does not have radiographic evidence of pneumonia or a history to support it; most likely tracheobronchitis -PO vancomycin 125 mg 4 times a day (3) HTN (hypertension) Current Visit: Yes Status: Chronic Assessment and Plan: - Continue Norvasc, propranolol BP gradually increasing, will start lisinopril, HR too low to increase propranolol. (4) Diabetes Current Visit: Yes Status: Chronic Assessment and Plan: Continue accuchecks low dose SSI QID AC/HS. Continue home long-acting insulin Currently glucose within acceptable limits. (5) HLD (hyperlipidemia) Current Visit: Yes Status: Chronic Assessment and Plan: Continue home medications. (6) COPD (chronic obstructive pulmonary disease) Current Visit: Yes Status: Chronic Assessment and Plan: albuterol nebs Q4H PRN SOB/wheezing. Continue home medications. (7) CKD (chronic kidney disease) stage 4, GFR 15-29 ml/min Current Visit: Yes Status: Chronic Assessment and Plan: No evidence of obstruction or hydronephrosis on CT Patient with nonnephrotic range proteinuria (8) Elevated liver enzymes Current Visit: Yes Status: Acute Assessment and Plan: CT abdomen/pelvis and RUQ ultrasound unremarkable. Likely dehydration, n/v related. Improved (9) Tracheobronchitis Current Visit: Yes Status: Acute Assessment and Plan: She will reported several month history of cough that is intermittently productive with light yellow sputum Doubt hospital associated pneumonia secondary to history and no radiographic evidence Discontinued IV vancomycin and Zosyn and Levaquin especially in the light of clostridium difficile colitis infection Afebrile Completed 5 days of Azithromycin treatment. (10) Thrombocytopenia Current Visit: Yes Status: Acute Assessment and Plan: Patient with chronic history of thrombocytopenia at baseline seems to be between 100K -120K -Likely secondary to infection versus IV antibiotics -Continue low molecular weight heparin for DVT prophylaxis for now (11) Chronic a-fib Current Visit: Yes Status: Acute Assessment and Plan: Chronic atrial fibrillation with slow ventricular response. Patient states that she was taken off anticoagulation for atrial fibrillation secondary to her frequent falls. Discontinued Inderal LA 60 mg a started Inderal immediate release 10 mg 3 times a day secondary to bradycardia is asymptomatic Continue Inderal 10 mg 3 times a day; heart rate improved (12) Hypophosphatemia Current Visit: Yes Status: Acute Assessment and Plan: Resolved (13) DVT prophylaxis Current Visit: Yes Status: Acute Assessment and Plan: Start SCDs and renally dosed lovenox 30 mg SQ QD. - Time Spent with Patient Total time spent is greater than 50% in coordination of care (as documented) at patient's floor/unit and/or counseling patient: Internal Medicine: Result - Labs CBC & Chem 7: 10/24/17 03:05 10/24/17 03:05 Labs: Short CBC 10/24/17 Range/Units 03:05 WBC 12.5 H (4.3-11.1) K/mcL Hgb 10.3 L (11.5-15.4) g/dL Hct 32.5 L (35.3-44.9) % Plt Count 135 L (140-400) K/mcL Neutrophils # 8.7 (1.6-8.9) K/mcL BMP 10/24/17 03:05 Sodium 140 Potassium 3.6 Chloride 105 Carbon Dioxide 29 BUN 19 Creatinine 1.40 H Glucose 101 Calcium 9.3 - VTE Documentation of Mechanical Device: Intermittent pneumatic compression device Consult Discharge Plan - Plan Instructions: Atrial Fibrillation (DC), Calcium and Osteoporosis (DC), Diabetes Mellitus Type 2 in Adults (DC), Chronic Obstructive Pulmonary Disease ( DC), Clostridium Difficile Infection (DC), Chronic Hypertension (DC), Pneumonia (DC) Referrals: NONE,PCP [Primary Care Provider] - (3) HTN (hypertension) Qualifiers: Hypertension type: essential hypertension Qualified Code(s): I10 - Essential (primary) hypertension (4) Diabetes Qualifiers: Diabetes mellitus type: type 2 Diabetes mellitus 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
[2017-10-24] MEDS: Insulin DETEMIR 100 UNIT/ML X5UNITS SQ SCH (22:39)
[2017-10-24] MEDS: Aspirin Enteric Coated 81 MG Tablet PO SCH (22:40)
[2017-10-25 01:10] LABS: Basophils % 0.3 %; Eosinophils # 0.1 K/mcL (0.0-0.6); Eosinophils % 1.1 %; Hematocrit 30.6 % (35.3-44.9); Hemoglobin 10.1 g/dL (11.5-15.4); Lymphocytes # 1.9 K/mcL (0.6-4.6); Lymphocytes % 15.2 %; Mean Corpuscular Hemoglobin 31.7 pg (28.0-33.3); Mean Corpuscular Volume 95.9 fL (83.0-100.0); Mean Platelet Volume 11.3 fL (9.4-12.4); Monocytes # 1.4 K/mcL (0.0-1.3); Neutrophils # 8.4 K/mcL (1.6-8.9); Platelet Count 144 K/mcL (140-400); Red Blood Count 3.19 M/mcL (3.82-4.97); Red Cell Distribution Width 13.2 % (11.5-14.5); Segmented Neutrophils % 68.4 %
[2017-10-25 01:19] LABS: Calcium 9.3 mg/dL (8.6-10.3)
[2017-10-25] MEDS ORDERED: *HR* Enoxaparin 30 MG/0.3 ML SYRINGE SQ SCH (06:00)
[2017-10-25] MEDS: amLODIPine 5 MG TABLET PO SCH (08:53)
[2017-10-25] MEDS: FLUoxetine 20 MG CAPSULE PO SCH (08:53)
[2017-10-25] MEDS: predniSONE 1 MG TABLET PO SCH (08:53)
[2017-10-25] MEDS: Cholecalciferol (D-3) 1,000 UNIT TABLET PO SCH (08:53)
[2017-10-25] MEDS: Nystatin POWDER 30 GM BOTTLE TP SCH (08:54)
[2017-10-25] MEDS: Insulin LISPRO 300 UNITS/3 ML VIAL SQ SCH ×2 (08:54→12:18)
[2017-10-25] MEDS: Vancomycin Oral Soln 125 MG/2.5 ML UDC PO SCH ×2 (08:54→12:18)
--- NOTE | 2017-10-25 09:24 | Discharge Summary ---
- NOTES TO OUTPATIENT PROVIDER Notes to Outpatient Provider: - Repeat BMP in 3-5 days - may need increased dose of blood pressure medications and needs monitored in that time. - Repeat CBC - leukocytosis is gradually improving. - Monitor fluid status. Dehydrated on admission but became fluid overloaded. - Follow-up blood pressure. Added low dose lisinopril prior to discharge. Orders not resulted at time of discharge: Pending orders 10/22/17 09:17 Legionella Antigen [RM] Routine Respiratory Infection Panel [MOLMIC] Routine Streptococcal pneumoniae urin antigen [S. Pneumoniae Antigen] [RM] Routine Date of Encounter: 10/25/17 Time of Encounter: 09:21 - Discharge Diagnosis (1) Clostridium difficile colitis Priority: Primary Status: Acute (2) Acute respiratory failure Priority: Secondary Status: Acute Assessment and Plan: Required O2 from fluid overload now resolved after Lasix. Qualifiers: Respiratory failure complication: hypoxia Qualified Code(s): J96.01 - Acute respiratory failure with hypoxia (3) Acute respiratory distress Priority: Secondary Status: Acute (4) HTN (hypertension) Priority: Secondary Status: Chronic Qualifiers: Hypertension type: essential hypertension Qualified Code(s): I10 - Essential (primary) hypertension (5) Diabetes Priority: Secondary Status: Chronic Qualifiers: Diabetes mellitus type: type 2 Diabetes mellitus superintendent container terminal insulin use: with correction use Diabetes mellitus complication status: without complication Qualified Code(s): E11.9 - Type 2 diabetes mellitus without complications; Z79.4 - jail (current) use of insulin (6) HLD (hyperlipidemia) Priority: Secondary Status: Chronic Qualifiers: Hyperlipidemia type: unspecified Qualified Code(s): E78.5 - Hyperlipidemia , unspecified (7) COPD (chronic obstructive pulmonary disease) Priority: Secondary Status: Chronic Qualifiers: COPD type: unspecified COPD Qualified Code(s): J44.9 - Chronic obstructive pulmonary disease, unspecified (8) CKD (chronic kidney disease) stage 4, GFR 15-29 ml/min Priority: Secondary Status: Chronic (9) Elevated liver enzymes Priority: Secondary Status: Acute (10) Tracheobronchitis Priority: Secondary Status: Acute (11) Thrombocytopenia Priority: Secondary Status: Acute (12) Chronic a-fib Priority: Secondary Status: Acute (13) Hypophosphatemia Priority: Secondary Status: Acute (14) DVT prophylaxis Priority: Secondary Status: Acute Hospital course: Ms. Davis is a 76 year old female with history of CKD, HTN, DM, presented from SNF for abdominal pain, N/V, diarrhea. Patient a leukocytosis of 25.6k on admission. CT abdomen/pelvis showed no acute process. She was dehydrated on admission requiring IV fluids. Found to have C. diff colitis with testing. She was started on oral vancomycin. Symptoms improved. Patient developed acute onset of shortness of breath and signs of fluid overload and chest x-ray showed acute pulmonary edema. She improved with IV Lasix. Patient was able to advance diet and diarrhea improved. She was discharged to return to SNF in stable condition. - Time Spent with Patient Total time spent providing and/or coordinating discharge services: - Discharge Medications Home Medications: Acetaminophen [Tylenol] 650 mg PO Q4H PRN 08/01/17 [History] Aspirin [Lo-Dose Aspirin EC] 81 mg PO HS 08/01/17 [History] BuPROPion SR (12 HR) [Wellbutrin SR] 100 mg PO BID 08/01/17 [History] Calcitriol [Rocaltrol] 0.25 mcg PO DAILY 08/01/17 [History] Cholecalciferol (D-3) [Vitamin D] 1,000 unit PO DAILY 08/01/17 [History] FLUoxetine HCl [Prozac] 80 mg PO DAILY 08/01/17 [History] Ferrous Sulfate [Iron] 325 mg PO HS 08/01/17 [History] Furosemide [Lasix] 20 mg PO MOWEFR 08/01/17 [History] Lovastatin 40 mg PO HS 08/01/17 [History] Mag Hydrox/Al Hydrox/Simeth [Antacid Suspension] 30 ml PO DAILY PRN 08/01/17 [ History] Magnesium Hydroxide [Milk of Magnesia] 30 ml PO DAILY PRN 08/01/17 [History] Nystatin POWDER [Nystop] 1 appl TP TID 08/01/17 [History] Ondansetron [Zofran ODT] 8 mg SL Q8H PRN 08/01/17 [History] Propranolol LA (24 HR) [Inderal LA] 60 mg PO DAILY 08/01/17 [History] Sennosides [Senna] 2 tab PO DAILY PRN 08/01/17 [History] predniSONE [PredniSONE] 3 mg PO DAILY 08/01/17 [History] Tramadol HCl [Ultram] 50 mg PO Q8H PRN 7 Days #21 tablet 08/06/17 [Rx] amLODIPine [Norvasc] 10 mg PO DAILY tablet 08/06/17 [Rx] Insulin ASPART [NovoLOG] 0 - 12 unit SQ QID 10/17/17 [History] Insulin Glargine,Hum.rec.anlog [Lantus Solostar] 4 unit SQ 2000 10/17/17 [ History] Albuterol Neb [Proventil Neb] 2.5 mg IH [id number] PRN inhsol 10/25/17 [Rx] Lisinopril [Zestril] 2.5 mg PO DAILY tablet 10/25/17 [Rx] Vancomycin Oral Soln [Firvanq] 125 mg PO QID 4 Days udc 10/25/17 [Rx] Allergies/Adverse Reactions: 3 Allergy/AdvReac Type Severity Reaction Status Date / Time No Known Allergies Allergy Verified 10/17/17 21:08 Date of admission: 10/18/17 03:58 Primary care physician: PCP NONE Consults: 10/18/17 11:51 PT [Consult to Physical Therapy] [CONS] Routine Comment: Evaluate, develop and implement POC Reason for Consult: Weakness and multiple assist with transfers and ambulation Does patient have active BEDREST order?: No Is patient medically & hemodynamically stable?: Yes Patient assessed for mobility or mobilized this visit?: No 10/18/17 11:53 OT [Consult to Occupational Therapy] [CONS] Routine Comment: Evaluate, develop and implement POC Reason for Consult: Weakness and assistance required for transfers Does patient have active BEDREST order?: No Is patient medically & hemodynamically stable?: Yes Patient assessed for mobility or mobilized this visit?: No Discharging clinician: Richard Chirinos - Constitutional Vitals: Temp Pulse Resp BP Pulse Ox 98.1 F 74 18 164/84 96 10/25/17 08:09 10/25/17 08:09 10/25/17 04:02 10/25/17 08:09 10/25/17 04:02 General appearance: Present: cooperative, A&O X 3, pleasant, no acute distress, answers questions appropriately - Head Head exam: Present: atraumatic, normocephalic - Eye Eye exam: Present: PERRL, conjuntiva pink, sclera anicteric Pupils: Present: PERRL - Neck Neck exam general surgery: Present: supple, trachea midline. Absent: lymphadenopathy - Respiratory Respiratory exam: Present: CTAB. Absent: accessory muscle use, rales, rhonchi, wheezes - Cardiovascular Cardiovascular exam: Present: RRR, +S1, +S2. Absent: diastolic murmur, gallop, rubs, systolic murmur - GI/Abdominal GI/Abdominal exam: Present: normal bowel sounds, soft, no peritoneal signs. Absent: distended, tenderness - Extremities Exam Extremities exam: Present: warm, radial pulses palpable and symmetrical. Absent : calf tenderness, cyanotic, pedal edema - Neurological Exam Neurological exam: Present: CN II-XII intact, oriented X3, no focal deficits. Absent: pronater drift, facial droop, speech deficit - Skin Skin exam: Present: dry, intact - Patient Status Disposition: Transfer SNF Condition: Good Functional capacity at discharge: wheelchair bound Overall status at discharge: patient is progressing back to baseline - Discharge Instructions Instructions: Atrial Fibrillation (DC), Calcium and Osteoporosis (DC), Diabetes Mellitus Type 2 in Adults (DC), Chronic Obstructive Pulmonary Disease ( DC), Clostridium Difficile Infection (DC), Chronic Hypertension (DC), Pneumonia (DC) Follow Up With: NONE,PCP [Primary Care Provider] - - Diet and Activity Activity: as per physical therapy Diet: advance to your usual diet - VTE Documentation of Mechanical Device: Intermittent pneumatic compression device
--- NOTE | 2017-10-25 09:54 | Physician Discharge Referral ---
ExtendedCare Referral Info Institutional Level of Care: Skilled - Diagnosis (1) Clostridium difficile colitis Priority: Primary Status: Acute (2) Acute respiratory failure Priority: Secondary Status: Acute (3) Acute respiratory distress Priority: Secondary Status: Acute (4) HTN (hypertension) Priority: Secondary Status: Chronic (5) Diabetes Priority: Secondary Status: Chronic (6) HLD (hyperlipidemia) Priority: Secondary Status: Chronic (7) COPD (chronic obstructive pulmonary disease) Priority: Secondary Status: Chronic (8) CKD (chronic kidney disease) stage 4, GFR 15-29 ml/min Priority: Secondary Status: Chronic (9) Elevated liver enzymes Priority: Secondary Status: Acute (10) Tracheobronchitis Priority: Secondary Status: Acute (11) Thrombocytopenia Priority: Secondary Status: Acute (12) Chronic a-fib Priority: Secondary Status: Acute (13) Hypophosphatemia Priority: Secondary Status: Acute (14) DVT prophylaxis Priority: Secondary Status: Acute - Transfer Medications Home Medications: Acetaminophen [Tylenol] 650 mg PO Q4H PRN 08/01/17 [History] Aspirin [Lo-Dose Aspirin EC] 81 mg PO HS 08/01/17 [History] BuPROPion SR (12 HR) [Wellbutrin SR] 100 mg PO BID 08/01/17 [History] Calcitriol [Rocaltrol] 0.25 mcg PO DAILY 08/01/17 [History] Cholecalciferol (D-3) [Vitamin D] 1,000 unit PO DAILY 08/01/17 [History] FLUoxetine HCl [Prozac] 80 mg PO DAILY 08/01/17 [History] Ferrous Sulfate [Iron] 325 mg PO HS 08/01/17 [History] Furosemide [Lasix] 20 mg PO MOWEFR 08/01/17 [History] Lovastatin 40 mg PO HS 08/01/17 [History] Mag Hydrox/Al Hydrox/Simeth [Antacid Suspension] 30 ml PO DAILY PRN 08/01/17 [ History] Magnesium Hydroxide [Milk of Magnesia] 30 ml PO DAILY PRN 08/01/17 [History] Nystatin POWDER [Nystop] 1 appl TP TID 08/01/17 [History] Ondansetron [Zofran ODT] 8 mg SL Q8H PRN 08/01/17 [History] Propranolol LA (24 HR) [Inderal LA] 60 mg PO DAILY 08/01/17 [History] Sennosides [Senna] 2 tab PO DAILY PRN 08/01/17 [History] predniSONE [PredniSONE] 3 mg PO DAILY 08/01/17 [History] Tramadol HCl [Ultram] 50 mg PO Q8H PRN 7 Days #21 tablet 08/06/17 [Rx] amLODIPine [Norvasc] 10 mg PO DAILY tablet 08/06/17 [Rx] Insulin ASPART [NovoLOG] 0 - 12 unit SQ QID 10/17/17 [History] Insulin Glargine,Hum.rec.anlog [Lantus Solostar] 4 unit SQ 2000 10/17/17 [ History] Albuterol Neb [Proventil Neb] 2.5 mg IH [id number] PRN inhsol 10/25/17 [Rx] Lisinopril [Zestril] 2.5 mg PO DAILY tablet 10/25/17 [Rx] Vancomycin Oral Soln [Firvanq] 125 mg PO QID 4 Days udc 10/25/17 [Rx] Allergies/Adverse Reactions: 3 Allergy/AdvReac Type Severity Reaction Status Date / Time No Known Allergies Allergy Verified 10/17/17 21:08 - Respiratory Orders Smoking Cessation: Smoking cessation has been advised. For more information, call the [place] Tobacco Quit Line at 6-981-NZVF-NOW. - Ancillary Orders May use pressure relief devices daily prn - Advance Directives Code Status: Full Code - Mobility Orders Other (as per PT) - Treatments Skin tear care topically daily PRN per policy - Diet Orders No Concentrated Sweets, Renal, Cardiac CERTIFICATION: I certify that the transfer of the above named patient to an Extended Care Facility is necessary for the continuing treatment of the diagnosis listed. The above information is true and accurate reflection of patient's current condition. Confidential - Redisclosure prohibited without a patient's written consent.
[2017-10-25 11:25] VITALS: BP 123/72
--- NOTE | 2017-10-25 15:27 | Event Note ---
<Anton Shin - Last Filed: 10/25/17 15:29> Date of Encounter: 10/25/17 Time of Encounter: 10:00 Medical Student Note-Anton Shin OMS-IV Subjective: Ms. Davis was sitting up, and watching TV upon my arrival. She states that she feeling a little cold, but denies any other symptoms at this time. Upon questioning she is alert and oriented x 3. The patient states that she did not sleep well last night, however she denies any symptoms today. Additionally the patient continues to have a cough that comes and goes. Ms. Davis denies any chest pain, abdominal pain, nausea or vomiting, fever, and chills. She also states that she has been urinating well and had a bowel movement yesterday. Objective: Vitals: Temperature-98.1, HR-68, RR-15, RP-123/72, O2-96 General Appearance: Patient is alert and oriented x 3, not in any acute distress , appears older than stated age Head exam: Atraumatic, normocephalic Eye exam: PERRL, conjuntiva pink, sclera anicteric Neck exam: Trachea midline Respiratory exam: No wheezing, rales, or rhonci Cardiology exam: RRR, +S1, +S2 Gastrointestinal exam: Normal bowel sounds, soft Extremities exam: warm without tenderness or peripheral edema Neurological exam: CN II-XII intact, no focal deficits, alert and oriented x 3 Skin exam: Dry and intact Assessment: 1. Acute Respiratory Distress 2. Clostridium Difficile Colitis 3. COPD Exacerbation 4. Atrial Fibrillation 5. Diabetes 6. Hypertension 7. Hyperlipidemia 8. Tracheobronchitis 9. CKD 10. DVT Prophylaxis Plan: 1. Patient states that her breathing is fine and she is currently on room air. Her O2 saturation is at 96 and on lung auscultation no wheezing is heard. Patient is currently on Lasix 20 mg IV. On physical exam the patient shows no signs of peripheral edema and her breathing is being managed with Albuterol Q4 hours and Prednisone 3 mg PO. 2. Patient initially presented with abdominal pain and has had diarrhea which appears to have resolved. She denies any abdominal pain at this time, as well as nausea and vomiting. Fecal sample was positive for C.Diff toxin B gene via PCR. Patient was started on Vancomyocin PO 125 4x a day and this should be continued. Patient's initial WBC was 25.6 but this has been trending down to a current level of 12.3 (10/25/17) 3. The patient has a previous history of COPD. At this time the patient is not complaining of any dyspnea and she is on room air as well as Albuterol Q4 hours , and Prednisone 3 mg PO. Chest x-ray findings on 10/22 were most compatible with pulmonary edema and probable mild to moderate congestive heart failure. Possibility of superimposed pneumonia in either lung base cannot be excluded. Should the patient's respiratory status decline steroids can be increased. 4. Patient has a previous history of Atrial Fibrillation and his EKG upon admission revealed Atrial Fibrillation with slow ventricular contraction. Patient is currently being rate controlled with Propranolol. Continue to monitor 5. Patient has a previous diagnosis of Diabetes, currently being treated with sliding scale insulin. Latest blood glucose reading was 146. Continue to monitor 6. Patient has a previous diagnosis of hypertension. Currently being treated with Metoprolol. Vital signs reveal a heart rate of 68 and a blood pressure of 123/72. Continue current dose and monitor on telemetry 7. The patient has a previous history of hyperlipidemia. No lipid panel available, patient is currently receiving Simvastatin and denies any muscle aches or pains. 8. Ms. Caro has had a productive cough for several months with yellow sputum. Clinically the patient appears well and states that she is feeling better. Chest x-ray could not exclude the possibility of superimposed pneumonia in either lung base. Patient is afebrile and WBC has been trending down. Azithromycin has been discontinued after 5 days and the patient should continue to be monitored. 9. Patient has a history of stage 4 chronic kidney disease. Estimated GFR was 34 and the patient is not currently complaining of urinary symptoms. No evidence of obstruction or hydronephrosis on CT. Lasix has been discontinued and the patient's latest Creatinine was 1.51 10 Patient is currently receiving anticoagulation with Lovenox. No complaints of any calf/leg tenderness and there is no swelling of the lower extremities <Richard Chirinos - Last Filed: 11/05/17 17:48> Date of Encounter: 11/05/17 I have independently examined patient, progress note available in chart.
== END 2017-10-25 14:38 | DRG 371 ==
LOC: EMEROO 17:30 → 3NENU 17:30 → SUATTDRO 10-18 03:58 → 2NENU 10-20 15:24
PROVIDERS: ADMIT Family Medicine; ATTEND Internal Medicine

== ENCOUNTER 2017-11-26 21:03 | Inpatient (IN) ==
--- NOTE | 2017-11-26 22:36 | Emergency Department Note ---
Disposition Clinical Impression: Abdominal pain, UTI (urinary tract infection), C. difficile colitis Disposition: Admitted As Inpatient General Adult HPI - General Chief complaint: ED Weakness Stated complaint: WEAKNESS, ABD PAIN, DIFF SWALLOWING Time Seen by Provider: 11/26/17 21:46 Source: patient, EMS Mode of arrival: EMS Limitations: no limitations Nursing Notes Reviewed: Yes Vital Signs Reviewed: Yes - History of Present Illness HPI Narrative: Rosa Davis is a 76-yo female pt. with PMHx of HTN, HLD, DM treated with insulin, COPD, Alzheimer's disease, and cholecystectomy. She states that she is on blood thinners but cannot say which blood thinner. She has a chief complaint of abdominal pain for the past week. She describes this as crampy, intermittent 5/10 pain that has been gradual in onset. She states that she was seen yesterday and given PO vancomycin for C. dif colitis. She adds that she has had anorexia and has vomited (NBNB emesis) three times in the past week, and also had watery, nonbloody diarrhea about three times a day. She has had generalized weakness and fatigue, as well as a dry cough with some shortness of breath. She denies any fevers, chills, CP, palpitations, numbness, tingling, and difficulty swallowing. She has no other complaints. Onset (ago): week(s) (1) Location: abdomen Radiation: non-radiation Pain Severity: moderate Pain Scale: 5 Quality: other (crampy) Consistency: intermittent Improves with: nothing Worsens with: nothing Associated symptoms: Reports: cough, loss of appetite, nausea/vomiting, shortness of breath, weakness. Denies: fever/chills Treatments Prior to Arrival: none - Related Data Home Medications Medication Instructions Recorded Confirmed Acetaminophen [Tylenol] 650 mg PO Q4H PRN 08/01/17 11/27/17 Aspirin [Lo-Dose Aspirin EC] 81 mg PO HS 08/01/17 11/27/17 BuPROPion SR (12 HR) [Wellbutrin 100 mg PO BID 08/01/17 11/27/17 SR] Calcitriol [Rocaltrol] 0.25 mcg PO DAILY 08/01/17 11/27/17 Cholecalciferol (D-3) [Vitamin D] 1,000 unit PO DAILY 08/01/17 11/27/17 FLUoxetine HCl [Prozac] 80 mg PO DAILY 08/01/17 11/27/17 Ferrous Sulfate [Iron] 325 mg PO HS 08/01/17 11/27/17 Furosemide [Lasix] 20 mg PO MOWEFR 08/01/17 11/27/17 Lovastatin 40 mg PO HS 08/01/17 11/27/17 Mag Hydrox/Al Hydrox/Simeth 30 ml PO DAILY PRN 08/01/17 11/27/17 [Antacid Suspension] Magnesium Hydroxide [Milk of 30 ml PO DAILY PRN 08/01/17 11/27/17 Magnesia] Nystatin POWDER [Nystop] 1 appl TP TID 08/01/17 11/27/17 Ondansetron [Zofran ODT] 8 mg SL Q8H PRN 08/01/17 11/27/17 Propranolol LA (24 HR) [Inderal LA] 60 mg PO DAILY 08/01/17 11/27/17 Sennosides [Senna] 2 tab PO DAILY PRN 08/01/17 11/27/17 predniSONE [PredniSONE] 3 mg PO DAILY 08/01/17 11/27/17 Insulin ASPART [NovoLOG] 0 - 12 unit SQ QID 10/17/17 11/27/17 Insulin Glargine,Hum.rec.anlog 4 unit SQ 199910/17/17 11/27/17 [Lantus Solostar] Loperamide [Imodium] 2 mg PO QID PRN MDD 8MG PER 24 11/27/17 11/27/17 HOURS Previous Rx's Medication Instructions Recorded amLODIPine [Norvasc] 10 mg PO DAILY tablet 08/06/17 Albuterol Neb [Proventil Neb] 2.5 mg IH [id number] PRN inhsol 10/25/17 Lisinopril [Zestril] 2.5 mg PO DAILY tablet 10/25/17 Tramadol HCl [Ultram] 50 mg PO BID PRN 3 Days #15 tab 10/25/17 Allergies Allergy/AdvReac Type Severity Reaction Status Date / Time No Known Allergies Allergy Verified 11/27/17 08:55 Constitutional: Reports: weakness. Denies: fever, chills Cardiovascular: Reports: dyspnea on exertion. Denies: chest pain, palpitations Respiratory: Reports: cough, dyspnea. Denies: wheezes, hemoptysis, sputum production Gastrointestinal: Reports: abdominal pain, nausea, vomiting, diarrhea. Denies: constipation, hematemesis, melena, hematochezia Genitourinary: Denies: urgency, dysuria Neurological: Reports: weakness. Denies: headache, numbness, paresthesias, confusion Endocrine: Reports: fatigue Past Medical History - Past Medical History Source: old records reviewed Medical history: Reports: diabetes, hyperlipidemia, hypertension, osteoporosis, COPD Surgical history: Reports: cholecystectomy Psychiatric history: Reports: anxiety, depression - Social History Smoking Status: Never smoker Smokeless Tobacco Status: No Alcohol use: Reports: none Drug use: Reports: none Physical Exam On exam, patient is oriented x3 but appears fatigued and lethargic. Her eyes are closed and she is visibly labored in breathing. On exam, her heart has RRR, and she has diminished but clear lung sounds on anterior and lateral auscultation. Lung exam did not include posterior auscultation due to patient weakness. Abdominal exam elicits distension and mild tenderness to palpation diffusely, but it is soft with no guarding, rebound tenderness, or organomegaly. Her pulses are thready and mucous membranes are dry. She appears grossly neurologically intact. Skin is warm and dry but shows petechiae and bruising. - General Limitations: no limitations General appearance: alert - Head Head exam: atraumatic, normocephalic - Eye Eye exam: Present: normal appearance, PERRL, EOMI - ENT ENT exam: mucous membranes dry - Neck Neck exam: Present: normal inspection - Chest Chest inspection: Present: symmetric chest wall rise - Respiratory Respiratory exam: Present: accessory muscle use - Cardiovascular Cardiovascular exam: Present: regular rate, normal rhythm - Abdominal Exam Abdominal exam: Present: soft, tenderness, distention, normal bowel sounds. Absent: guarding, rebound, rigidity, hypoactive bowel sounds, organomegaly Abdominal tenderness: Present: diffuse, mild - Neurological Exam Neurological exam: Present: alert, oriented X3, CN II-XII intact - Skin Skin exam: Present: warm, dry, pallor Course Vital Signs Temperature 97.6 F 11/26/17 21:15 Pulse Rate 84 11/26/17 21:15 Respiratory Rate 20 11/26/17 21:15 Blood Pressure 94/61 11/26/17 21:15 O2 Sat by Pulse Oximetry 96 11/26/17 21:15 Temperature 97.3 F L 11/27/17 19:00 Pulse Rate 93 11/27/17 21:01 Respiratory Rate 16 11/27/17 21:01 Blood Pressure 88/77 11/27/17 21:01 O2 Sat by Pulse Oximetry 100 11/27/17 23:54 Oxygen Delivery Oxygen Delivery Room Air Medical Decision Making - Lab Data Result diagrams: 11/27/17 20:21 11/27/17 14:44 Lab Results 11/26/17 11/26/17 11/26/17 Range/Units 22:15 22:15 23:45 WBC 55.6 H* (4.3-11.1) K/mcL RBC 4.08 (3.82-4.97) M/mcL Hgb 12.7 (11.5-15.4) g/dL Hct 39.5 (35.3-44.9) % MCV 96.8 (83.0-100.0) fL MCH 31.1 (28.0-33.3) pg MCHC 32.2 (31.6-35.5) g/dL RDW 14.9 H (11.5-14.5) % Plt Count 172 (140-400) K/mcL MPV 12.6 H (9.4-12.4) fL Seg Neutrophils % 72.0 % Band Neutrophils % 16.0 H (0-4) % Lymphocytes % 0.0 % Monocytes % 12.0 % Neutrophils # 48.9 H (1.6-8.9) K/mcL Lymphocytes # 0.0 L (0.6-4.6) K/mcL Monocytes # 6.7 H (0.0-1.3) K/mcL Nucleated RBCs/100 WBC 0.2 H (0) /100 WBC Smudge Cells Present A (Not Present) Toxic Granulation Present A (Not Present) Platelet Estimate Normal (Normal) Clumped Platelets (Not Present) Large Platelets Present A (Not Present) Polychromasia 1+ A (Not Present) Sodium 129 L (136-145) mEq/L Potassium 4.5 (3.5-5.1) mEq/L Chloride 96 L (98-107) mEq/L Carbon Dioxide 21 L (23-29) mEq/L BUN 57 H (8-23) mg/dL Creatinine 3.04 H (0.60-1.20) mg/dL Est GFR ( Amer) 18 L (> 60) Est GFR (Non-Af Amer) 15 L (> 60) BUN/Creatinine Ratio 19 (6-26) Glucose 166 H (70-105) mg/dL Calculated Osmolality 288 (280-300) Lactic Acid (0.5-2.2) mmol/L Calcium 8.6 (8.6-10.3) mg/dL Total Bilirubin 0.9 (0.3-1.0) mg/dL Direct Bilirubin 0.3 H (0.0-0.2) mg/dL Indirect Bilirubin 0.6 (0.0-1.2) mg/dL AST 44 H (13-39) Units/L ALT 71 H (7-52) Units/L Alkaline Phosphatase 95 (34-104) Units/L Troponin I 0.04 H* (< 0.04) ng/mL Serum Total Protein 5.1 L (6.4-8.9) g/dL Albumin 2.5 L (3.5-5.7) g/dL Globulin 2.6 (2.4-3.5) g/dL Albumin/Globulin Ratio 1.0 L (1.1-2.2) Lipase 4 L (11-82) Units/L Urine Color Dark Yellow (Yellow) Urine Clarity Turbid A (Clear) Urine pH 5.0 (5.0-8.0) pH Units Ur Specific [place] 1.018 (1.010-1.025) Urine Protein Trace (Neg-Trace) mg/dL Urine Glucose (UA) Normal (Normal) mg/dL Urine Ketones Negative (Negative) mg/dL Urine Blood Small H (Negative) Urine Nitrite Negative (Negative) Urine Bilirubin Small H (Negative) Urine Urobilinogen Normal (Normal) mg/dL Ur Leukocyte Esterase Large H (Negative) Urine Microscopic RBC 0-3 (0-3) per hpf Urine Microscopic WBC TNTC H (0-3) per hpf Ur Squamous Epith Cells Many H (None-Few) per lpf Urine Bacteria Many H (None-Few) per hpf Hyaline Casts Few (None-Few) per lpf Ur Culture Indicated? NO. A (NO) 11/27/17 Range/Units 00:07 WBC (4.3-11.1) K/mcL RBC (3.82-4.97) M/mcL Hgb (11.5-15.4) g/dL Hct (35.3-44.9) % MCV (83.0-100.0) fL MCH (28.0-33.3) pg MCHC (31.6-35.5) g/dL RDW (11.5-14.5) % Plt Count (140-400) K/mcL MPV (9.4-12.4) fL Seg Neutrophils % % Band Neutrophils % (0-4) % Lymphocytes % % Monocytes % % Neutrophils # (1.6-8.9) K/mcL Lymphocytes # (0.6-4.6) K/mcL Monocytes # (0.0-1.3) K/mcL Nucleated RBCs/100 WBC (0) /100 WBC Smudge Cells (Not Present) Toxic Granulation (Not Present) Platelet Estimate (Normal) Clumped Platelets (Not Present) Large Platelets (Not Present) Polychromasia (Not Present) Sodium (136-145) mEq/L Potassium (3.5-5.1) mEq/L Chloride (98-107) mEq/L Carbon Dioxide (23-29) mEq/L BUN (8-23) mg/dL Creatinine (0.60-1.20) mg/dL Est GFR ( Amer) (> 60) Est GFR (Non-Af Amer) (> 60) BUN/Creatinine Ratio (6-26) Glucose (70-105) mg/dL Calculated Osmolality (280-300) Lactic Acid 1.7 (0.5-2.2) mmol/L Calcium (8.6-10.3) mg/dL Total Bilirubin (0.3-1.0) mg/dL Direct Bilirubin (0.0-0.2) mg/dL Indirect Bilirubin (0.0-1.2) mg/dL AST (13-39) Units/L ALT (7-52) Units/L Alkaline Phosphatase (34-104) Units/L Troponin I (< 0.04) ng/mL Serum Total Protein (6.4-8.9) g/dL Albumin (3.5-5.7) g/dL Globulin (2.4-3.5) g/dL Albumin/Globulin Ratio (1.1-2.2) Lipase (11-82) Units/L Urine Color (Yellow) Urine Clarity (Clear) Urine pH (5.0-8.0) pH Units Ur Specific [place] (1.010-1.025) Urine Protein (Neg-Trace) mg/dL Urine Glucose (UA) (Normal) mg/dL Urine Ketones (Negative) mg/dL Urine Blood (Negative) Urine Nitrite (Negative) Urine Bilirubin (Negative) Urine Urobilinogen (Normal) mg/dL Ur Leukocyte Esterase (Negative) Urine Microscopic RBC (0-3) per hpf Urine Microscopic WBC (0-3) per hpf Ur Squamous Epith Cells (None-Few) per lpf Urine Bacteria (None-Few) per hpf Hyaline Casts (None-Few) per lpf Ur Culture Indicated? (NO)
[2017-11-26 23:54] LABS: Bilirubin,Urine Small (Negative); Blood,Urine Small (Negative); Clarity,Urine Turbid (Clear); Color,Urine Dark Yellow (Yellow); Glucose,Urine (UA) Normal (Normal); Ketones,Urine Negative (Negative); Leukocyte Esterase,Urine Large (Negative); Nitrite,Urine Negative (Negative); Protein,Urine Trace mg/dL (Neg-Trace); Specific Gravity,Urine 1.018 (1.010-1.025); Urobilinogen,Urine Normal (Normal)
[2017-11-26 23:56] LABS: Bacteria,Urine Many per hpf (None-Few); RBC,Urine 0-3 per hpf (0-3); Squamous Epithelial Cell,Urine Many per lpf (None-Few); WBC,Urine TNTC per hpf (0-3)
[2017-11-27 00:20] LABS: Hyaline Casts,Urine Few per lpf (None-Few)
[2017-11-27 00:26] LABS: Troponin I 0.04 ng/mL (< 0.04)
[2017-11-27] MEDS ORDERED: cefTRIAXone 2,000 MG in 0.9 % Sodium Chloride Mini Bag 100 ML IVPB ONE (00:26)
[2017-11-27] MEDS ORDERED: Aspirin 81 MG TAB.CHEW PO STA (00:27)
[2017-11-27 00:33] LABS: Nucleated Red Blood Cells 0.2 /100 WBC (0)
[2017-11-27 00:34] LABS: Hematocrit 39.5 % (35.3-44.9); Hemoglobin 12.7 g/dL (11.5-15.4); Mean Corpuscular HGB Conc 32.2 g/dL (31.6-35.5); Mean Corpuscular Hemoglobin 31.1 pg (28.0-33.3); Mean Corpuscular Volume 96.8 fL (83.0-100.0); Mean Platelet Volume 12.6 fL (9.4-12.4); Platelet Count 172 K/mcL (140-400); Red Blood Count 4.08 M/mcL (3.82-4.97); Red Cell Distribution Width 14.9 % (11.5-14.5)
--- NOTE | 2017-11-27 00:36 | Emergency Department Note ---
Disposition Clinical Impression: Abdominal pain Qualifiers: Abdominal location: generalized Qualified Code(s): R10.84 - Generalized abdominal pain UTI (urinary tract infection) Qualifiers: Urinary tract infection type: site unspecified Hematuria presence: without hematuria Qualified Code(s): N39.0 - Urinary tract infection, site not specified Disposition: Still a Patient Condition: Fair Referrals: NONE,PCP [Primary Care Provider] - Forms: ED Satisfaction Letter General Adult HPI - General Chief complaint: ED Weakness Stated complaint: WEAKNESS, ABD PAIN, DIFF SWALLOWING Time Seen by Provider: 11/26/17 21:46 Source: patient, EMS Mode of arrival: EMS Limitations: no limitations Nursing Notes Reviewed: Yes Vital Signs Reviewed: Yes - History of Present Illness HPI Narrative: Patient is a 76-year-old female with a past medical history of HLD, HTN, COPD, appendectomy, colon cystectomy presents to the emergency department for evaluation of abdominal pain and weakness. According to the patient she is currently undergoing treatment for see. If the cell which she started oral vancomycin today. Patient states that she has been having diarrhea for the past week. States she generally feels weak and denies any focal neurological deficits. She states that she does feel short of breath and has had a dry cough. Denies any chest pain or palpitations. Denies any fevers, chills, nausea, vomiting, back pain, flank pain, or urinary symptoms. Location: abdomen Pain Scale: 5 Quality: other (crampy) Improves with: nothing Worsens with: nothing Associated symptoms: Reports: cough, loss of appetite, nausea/vomiting, shortness of breath, weakness. Denies: fever/chills Treatments Prior to Arrival: none - Related Data Home Medications Medication Instructions Recorded Confirmed Acetaminophen [Tylenol] 650 mg PO Q4H PRN 08/01/17 10/17/17 Aspirin [Lo-Dose Aspirin EC] 81 mg PO HS 08/01/17 10/17/17 BuPROPion SR (12 HR) [Wellbutrin 100 mg PO BID 08/01/17 10/17/17 SR] Calcitriol [Rocaltrol] 0.25 mcg PO DAILY 08/01/17 10/17/17 Cholecalciferol (D-3) [Vitamin D] 1,000 unit PO DAILY 08/01/17 10/17/17 FLUoxetine HCl [Prozac] 80 mg PO DAILY 08/01/17 10/17/17 Ferrous Sulfate [Iron] 325 mg PO HS 08/01/17 10/17/17 Furosemide [Lasix] 20 mg PO MOWEFR 08/01/17 10/17/17 Lovastatin 40 mg PO HS 08/01/17 10/17/17 Mag Hydrox/Al Hydrox/Simeth 30 ml PO DAILY PRN 08/01/17 10/17/17 [Antacid Suspension] Magnesium Hydroxide [Milk of 30 ml PO DAILY PRN 08/01/17 10/17/17 Magnesia] Nystatin POWDER [Nystop] 1 appl TP TID 08/01/17 10/17/17 Ondansetron [Zofran ODT] 8 mg SL Q8H PRN 08/01/17 10/17/17 Propranolol LA (24 HR) [Inderal LA] 60 mg PO DAILY 08/01/17 10/17/17 Sennosides [Senna] 2 tab PO DAILY PRN 08/01/17 10/17/17 predniSONE [PredniSONE] 3 mg PO DAILY 08/01/17 10/17/17 Insulin ASPART [NovoLOG] 0 - 12 unit SQ QID 10/17/17 10/17/17 Insulin Glargine,Hum.rec.anlog 4 unit SQ 199910/17/17 10/17/17 [Lantus Solostar] Previous Rx's Medication Instructions Recorded Tramadol HCl [Ultram] 50 mg PO Q8H PRN 7 Days #21 tablet 08/06/17 amLODIPine [Norvasc] 10 mg PO DAILY tablet 08/06/17 Albuterol Neb [Proventil Neb] 2.5 mg IH [id number] PRN inhsol 10/25/17 Lisinopril [Zestril] 2.5 mg PO DAILY tablet 10/25/17 Tramadol HCl [Ultram] 50 mg PO BID PRN 3 Days #15 tab 10/25/17 Vancomycin Oral Soln [Firvanq] 125 mg PO QID 4 Days udc 10/25/17 Allergies Allergy/AdvReac Type Severity Reaction Status Date / Time No Known Allergies Allergy Verified 11/26/17 21:11 All systems ED: reviewed and negative except as stated. Review of Systems: As Per HPI Constitutional: Reports: weakness. Denies: fever, chills Cardiovascular: Reports: dyspnea on exertion. Denies: chest pain, palpitations Respiratory: Reports: cough, dyspnea. Denies: wheezes, hemoptysis, sputum production Gastrointestinal: Reports: abdominal pain, nausea, vomiting, diarrhea. Denies: constipation, hematemesis, melena, hematochezia Genitourinary: Denies: urgency, dysuria Neurological: Reports: weakness. Denies: headache, numbness, paresthesias, confusion Endocrine: Reports: fatigue Past Medical History - Past Medical History Medical history: Reports: diabetes, hyperlipidemia, hypertension, osteoporosis, COPD Surgical history: Reports: cholecystectomy Psychiatric history: Reports: anxiety, depression - Social History Smoking Status: Never smoker Smokeless Tobacco Status: No Alcohol use: Reports: none Drug use: Reports: none Physical Exam - General Limitations: no limitations General appearance: alert Course Course Narrative: Patient was admitted and discharged from the hospital on 10/24/2017 in which she was treated for acute respiratory distress from fluid overloadshe is also treated for Clostridium difficile colitis which she was initially on IV antibiotic therapy however she is discharged on vancomycin 125 mg 4 times a day.according the patient's chart she does have a history of chronic atrial fibrillation in which she was taken off anticoagulation for frequent falls. Patient's EKG does show atrial fibrillation today. Given her abdominal pain as well as her generalized weakness plan at this time is to work her up for abdominal pain which she will undergo a CT scan of the abdomen, abdominal labs, lactic acid to rule out ischemia, and she will also undergo an ACS workup given her generalized weakness and also evaluate for pneumonia given her cough. We also evaluate for UTI. - Reevaluation(s) Reevaluation #1: Patient does have a positive UTI at this time we will start ceftriaxone and a culture was ordered. Given low blood pressure, patient will receive one liter of IV fluids for pressure support. Discussed the patient's case with the hospitalist Dr. Anne, discussed with the patient will need to be admitted for the hospital for UTI as well as Clostridium difficile. Discussed that we are waiting for lab results as well as imaging and she will be signed out to the night team with Dr. Caraballo. Vital Signs Temperature 97.6 F 11/26/17 21:15 Pulse Rate 84 11/26/17 21:15 Respiratory Rate 20 11/26/17 21:15 Blood Pressure 94/61 11/26/17 21:15 O2 Sat by Pulse Oximetry 96 11/26/17 21:15 Temperature 97.6 F 11/26/17 21:15 Pulse Rate 87 11/27/17 00:37 Respiratory Rate 24 11/27/17 00:37 Blood Pressure 93/58 11/27/17 00:37 O2 Sat by Pulse Oximetry 96 11/27/17 00:37 Oxygen Delivery Oxygen Delivery Room Air Medical Decision Making - Medical Records Medical records reviewed: Yes I reviewed the patient's medical records. - Lab Data Lab results reviewed: Yes I reviewed the patient's lab results. Result diagrams: 11/26/17 22:15 Lab Results 11/26/17 11/26/17 11/26/17 Range/Units 22:15 22:15 23:45 WBC 55.6 H* (4.3-11.1) K/mcL RBC 4.08 (3.82-4.97) M/mcL Hgb 12.7 (11.5-15.4) g/dL Hct 39.5 (35.3-44.9) % MCV 96.8 (83.0-100.0) fL MCH 31.1 (28.0-33.3) pg MCHC 32.2 (31.6-35.5) g/dL RDW 14.9 H (11.5-14.5) % Plt Count 172 (140-400) K/mcL MPV 12.6 H (9.4-12.4) fL Seg Neutrophils % 72.0 % Band Neutrophils % 16.0 H (0-4) % Lymphocytes % 0.0 % Monocytes % 12.0 % Neutrophils # 48.9 H (1.6-8.9) K/mcL Lymphocytes # 0.0 L (0.6-4.6) K/mcL Monocytes # 6.7 H (0.0-1.3) K/mcL Nucleated RBCs/100 WBC 0.2 H (0) /100 WBC Smudge Cells Present A (Not Present) Toxic Granulation Present A (Not Present) Platelet Estimate Normal (Normal) Clumped Platelets Few A (Not Present) Polychromasia 1+ A (Not Present) Troponin I 0.04 H* (< 0.04) ng/mL Urine Color Dark Yellow (Yellow) Urine Clarity Turbid A (Clear) Urine pH 5.0 (5.0-8.0) pH Units Ur Specific [place] 1.018 (1.010-1.025) Urine Protein Trace (Neg-Trace) mg/dL Urine Glucose (UA) Normal (Normal) mg/dL Urine Ketones Negative (Negative) mg/dL Urine Blood Small H (Negative) Urine Nitrite Negative (Negative) Urine Bilirubin Small H (Negative) Urine Urobilinogen Normal (Normal) mg/dL Ur Leukocyte Esterase Large H (Negative) Urine Microscopic RBC 0-3 (0-3) per hpf Urine Microscopic WBC TNTC H (0-3) per hpf Ur Squamous Epith Cells Many H (None-Few) per lpf Urine Bacteria Many H (None-Few) per hpf Hyaline Casts Few (None-Few) per lpf Ur Culture Indicated? NO. A (NO) - EKG Data EKG #1 EKG attestation: Yes I reviewed and interpreted this EKG. EKG results narrative: EKG done at 23:22 shows atrial fibrillation at a rate of 91 bpm normal access intervals within normal limits no signs of ST elevation, ST depression or Q waves present. This is new when compared to old EKG that was done on 2017. However, patient does have a history and atrial fibrillation on record. S.Trace.Lam - Te.Trace.ANehemias Situation: Demographics, MOA Background: Presenting Complaint, Relevant PMH, Meds, & Allergies Assessment: Vital Signs, Course and respsone to treatment, Exam Concerns, Patient/Family Expectation, Pertinant Lab Results, Outstanding Labs Recommendation: Barrier(s) to disposition, Recommendation based on pending studies, treatments, or consults S.B.A.RRhea Report Given to: Татьяна Nolan Repor Time: 01:33
[2017-11-27] MEDS ORDERED: 0.9 % Sodium Chloride 1,000 ML IVC ONE (00:41)
[2017-11-27] MEDS ORDERED: *HR* Amiodarone 150 MG/3 ML VIAL IVPB ONE (00:44)
[2017-11-27] MEDS ORDERED: *HR* Amiodarone Premix 360 MG/200 ML BAG IVC ONE (00:44)
[2017-11-27] MEDS ORDERED: *HR* Atropine Sulfate 1 MG/10 ML SYRINGE IV ONE (00:44)
[2017-11-27] MEDS ORDERED: *HR* EPINEPHrine 1 MG/10 ML SYRINGE IVP ONE (00:44)
[2017-11-27 00:53] LABS: Monocytes # 6.7 K/mcL (0.0-1.3); Neutrophils # 48.9 K/mcL (1.6-8.9)
[2017-11-27 00:54] LABS: Platelet Estimate Normal (Normal); Polychromasia 1+ (Not Present); Toxic Granulation Present (Not Present)
[2017-11-27 00:58] LABS: Smudge Cells Present (Not Present)
[2017-11-27] MEDS ORDERED: Naloxone 0.4 MG/ML INJ IVP PRN ×2 (01:22→07:30)
[2017-11-27] MEDS ORDERED: 0.9 % Sodium Chloride 1,000 ML IVC SCH (01:30)
--- NOTE | 2017-11-27 02:22 | Emergency Department Note ---
Disposition Clinical Impression: C. difficile colitis Abdominal pain Qualifiers: Abdominal location: generalized Qualified Code(s): R10.84 - Generalized abdominal pain UTI (urinary tract infection) Qualifiers: Urinary tract infection type: site unspecified Hematuria presence: without hematuria Qualified Code(s): N39.0 - Urinary tract infection, site not specified Disposition: Admitted As Inpatient Condition: Fair Time of Disposition: 05:02 General Adult HPI - General Chief complaint: ED Weakness Stated complaint: WEAKNESS, ABD PAIN, DIFF SWALLOWING Time Seen by Provider: 11/26/17 21:46 Source: patient, EMS Mode of arrival: EMS Limitations: no limitations Nursing Notes Reviewed: Yes Vital Signs Reviewed: Yes - History of Present Illness Location: abdomen Pain Scale: 5 Quality: other (crampy) Improves with: nothing Worsens with: nothing Associated symptoms: Reports: cough, loss of appetite, nausea/vomiting, shortness of breath, weakness. Denies: fever/chills Treatments Prior to Arrival: none - Related Data Home Medications Medication Instructions Recorded Confirmed Acetaminophen [Tylenol] 650 mg PO Q4H PRN 08/01/17 10/17/17 Aspirin [Lo-Dose Aspirin EC] 81 mg PO HS 08/01/17 10/17/17 BuPROPion SR (12 HR) [Wellbutrin 100 mg PO BID 08/01/17 10/17/17 SR] Calcitriol [Rocaltrol] 0.25 mcg PO DAILY 08/01/17 10/17/17 Cholecalciferol (D-3) [Vitamin D] 1,000 unit PO DAILY 08/01/17 10/17/17 FLUoxetine HCl [Prozac] 80 mg PO DAILY 08/01/17 10/17/17 Ferrous Sulfate [Iron] 325 mg PO HS 08/01/17 10/17/17 Furosemide [Lasix] 20 mg PO MOWEFR 08/01/17 10/17/17 Lovastatin 40 mg PO HS 08/01/17 10/17/17 Mag Hydrox/Al Hydrox/Simeth 30 ml PO DAILY PRN 08/01/17 10/17/17 [Antacid Suspension] Magnesium Hydroxide [Milk of 30 ml PO DAILY PRN 08/01/17 10/17/17 Magnesia] Nystatin POWDER [Nystop] 1 appl TP TID 08/01/17 10/17/17 Ondansetron [Zofran ODT] 8 mg SL Q8H PRN 08/01/17 10/17/17 Propranolol LA (24 HR) [Inderal LA] 60 mg PO DAILY 08/01/17 10/17/17 Sennosides [Senna] 2 tab PO DAILY PRN 08/01/17 10/17/17 predniSONE [PredniSONE] 3 mg PO DAILY 08/01/17 10/17/17 Insulin ASPART [NovoLOG] 0 - 12 unit SQ QID 10/17/17 10/17/17 Insulin Glargine,Hum.rec.anlog 4 unit SQ 199910/17/17 10/17/17 [Lantus Solostar] Previous Rx's Medication Instructions Recorded Tramadol HCl [Ultram] 50 mg PO Q8H PRN 7 Days #21 tablet 08/06/17 amLODIPine [Norvasc] 10 mg PO DAILY tablet 08/06/17 Albuterol Neb [Proventil Neb] 2.5 mg IH [id number] PRN inhsol 10/25/17 Lisinopril [Zestril] 2.5 mg PO DAILY tablet 10/25/17 Tramadol HCl [Ultram] 50 mg PO BID PRN 3 Days #15 tab 10/25/17 Vancomycin Oral Soln [Firvanq] 125 mg PO QID 4 Days udc 10/25/17 Allergies Allergy/AdvReac Type Severity Reaction Status Date / Time No Known Allergies Allergy Verified 11/26/17 21:11 Constitutional: Reports: weakness. Denies: fever, chills Cardiovascular: Reports: dyspnea on exertion. Denies: chest pain, palpitations Respiratory: Reports: cough, dyspnea. Denies: wheezes, hemoptysis, sputum production Gastrointestinal: Reports: abdominal pain, nausea, vomiting, diarrhea. Denies: constipation, hematemesis, melena, hematochezia Genitourinary: Denies: urgency, dysuria Neurological: Reports: weakness. Denies: headache, numbness, paresthesias, confusion Endocrine: Reports: fatigue Past Medical History - Past Medical History Medical history: Reports: diabetes, hyperlipidemia, hypertension, osteoporosis, COPD Surgical history: Reports: cholecystectomy Psychiatric history: Reports: anxiety, depression - Social History Smoking Status: Never smoker Smokeless Tobacco Status: No Alcohol use: Reports: none Drug use: Reports: none Physical Exam - General Limitations: no limitations General appearance: alert Course Course Narrative: Patient was a sign out from Dr. Jauregui and Dr. Ocampo, please see their notes for any additional detail. In summary, patient is a 76-year-old female with past medical history of hyperlipidemia, hypertension, COPD, appendectomy, cholecystectomy that presented today due to abdominal pain and weakness. She is currently undergoing treatment for C. difficile. She started oral vancomycin today. She has been having diarrhea for the past week. She says that she feels generally weak. Denies any focal numbness, tingling, weakness. She states that she also shortness breath, cough. Denies any chest pain. Denies any fevers, nausea, vomiting, back pain, flank pain, urinary symptoms. According to workup here, patient has new onset A. fib that is currently rate controlled. (Given aspirin and heparin) She also has UTI, patient was started on ceftriaxone by previous team. She is given 1 L normal saline bolus. Patient currently waiting on CT scan of abdomen and pelvis, previous team recommended admission after imaging results come back. 05:00 CT abdomen and pelvis shows diffuse colonic wall thickening with surrounding infiltration and trace free fluid was compatible with colitis, suggestive pseudomembranous colitis. Back containing umbilical hernia. Several scattered 5 mm or less in size nodules, recommend 12 month follow-up CT scan of the lungs for reassessment. Results were discussed with the patient. We will admit the patient for further care. By mouth vancomycin started. Vital Signs Temperature 97.6 F 11/26/17 21:15 Pulse Rate 84 11/26/17 21:15 Respiratory Rate 20 11/26/17 21:15 Blood Pressure 94/61 11/26/17 21:15 O2 Sat by Pulse Oximetry 96 11/26/17 21:15 Temperature 97.6 F 11/26/17 21:15 Pulse Rate 82 11/27/17 05:06 Respiratory Rate 18 11/27/17 05:06 Blood Pressure 98/62 11/27/17 05:06 O2 Sat by Pulse Oximetry 97 11/27/17 05:06 Oxygen Delivery Oxygen Delivery Room Air Medical Decision Making - MDM Narrative Medical decision making narrative: Patient was a sign out from Dr. Jauregiu and Dr. Ocampo, please see their notes for any additional detail. In summary, patient is a 76-year-old female with past medical history of hyperlipidemia, hypertension, COPD, appendectomy, cholecystectomy that presented today due to abdominal pain and weakness. She is currently undergoing treatment for C. difficile. She started oral vancomycin today. She has been having diarrhea for the past week. She says that she feels generally weak. Denies any focal numbness, tingling, weakness. She states that she also shortness breath, cough. Denies any chest pain. Denies any fevers, nausea, vomiting, back pain, flank pain, urinary symptoms. According to workup here, patient has new onset A. fib that is currently rate controlled. (Given aspirin and heparin) She also has UTI, patient was started on ceftriaxone by previous team. She is given 1 L normal saline bolus. Patient currently waiting on CT scan of abdomen and pelvis, previous team recommended admission after imaging results come back. 05:00 CT abdomen and pelvis shows diffuse colonic wall thickening with surrounding infiltration and trace free fluid was compatible with colitis, suggestive pseudomembranous colitis. Back containing umbilical hernia. Several scattered 5 mm or less in size nodules, recommend 12 month follow-up CT scan of the lungs for reassessment. Results were discussed with the patient. We will admit the patient for further care. By mouth vancomycin started. - Medical Records Medical records reviewed: Yes I reviewed the patient's medical records. - Lab Data Lab results reviewed: Yes I reviewed the patient's lab results. Result diagrams: 11/26/17 22:15 11/26/17 22:15 Lab Results 11/26/17 11/26/17 11/26/17 Range/Units 22:15 22:15 23:45 WBC 55.6 H* (4.3-11.1) K/mcL RBC 4.08 (3.82-4.97) M/mcL Hgb 12.7 (11.5-15.4) g/dL Hct 39.5 (35.3-44.9) % MCV 96.8 (83.0-100.0) fL MCH 31.1 (28.0-33.3) pg MCHC 32.2 (31.6-35.5) g/dL RDW 14.9 H (11.5-14.5) % Plt Count 172 (140-400) K/mcL MPV 12.6 H (9.4-12.4) fL Seg Neutrophils % 72.0 % Band Neutrophils % 16.0 H (0-4) % Lymphocytes % 0.0 % Monocytes % 12.0 % Neutrophils # 48.9 H (1.6-8.9) K/mcL Lymphocytes # 0.0 L (0.6-4.6) K/mcL Monocytes # 6.7 H (0.0-1.3) K/mcL Nucleated RBCs/100 WBC 0.2 H (0) /100 WBC Smudge Cells Present A (Not Present) Toxic Granulation Present A (Not Present) Platelet Estimate Normal (Normal) Clumped Platelets Few A (Not Present) Polychromasia 1+ A (Not Present) Sodium 129 L (136-145) mEq/L Potassium 4.5 (3.5-5.1) mEq/L Chloride 96 L (98-107) mEq/L Carbon Dioxide 21 L (23-29) mEq/L BUN 57 H (8-23) mg/dL Creatinine 3.04 H (0.60-1.20) mg/dL Est GFR ( Amer) 18 L (> 60) Est GFR (Non-Af Amer) 15 L (> 60) BUN/Creatinine Ratio 19 (6-26) Glucose 166 H (70-105) mg/dL Calculated Osmolality 288 (280-300) Lactic Acid (0.5-2.2) mmol/L Calcium 8.6 (8.6-10.3) mg/dL Total Bilirubin 0.9 (0.3-1.0) mg/dL Direct Bilirubin 0.3 H (0.0-0.2) mg/dL Indirect Bilirubin 0.6 (0.0-1.2) mg/dL AST 44 H (13-39) Units/L ALT 71 H (7-52) Units/L Alkaline Phosphatase 95 (34-104) Units/L Troponin I 0.04 H* (< 0.04) ng/mL Serum Total Protein 5.1 L (6.4-8.9) g/dL Albumin 2.5 L (3.5-5.7) g/dL Globulin 2.6 (2.4-3.5) g/dL Albumin/Globulin Ratio 1.0 L (1.1-2.2) Lipase 4 L (11-82) Units/L Urine Color Dark Yellow (Yellow) Urine Clarity Turbid A (Clear) Urine pH 5.0 (5.0-8.0) pH Units Ur Specific [place] 1.018 (1.010-1.025) Urine Protein Trace (Neg-Trace) mg/dL Urine Glucose (UA) Normal (Normal) mg/dL Urine Ketones Negative (Negative) mg/dL Urine Blood Small H (Negative) Urine Nitrite Negative (Negative) Urine Bilirubin Small H (Negative) Urine Urobilinogen Normal (Normal) mg/dL Ur Leukocyte Esterase Large H (Negative) Urine Microscopic RBC 0-3 (0-3) per hpf Urine Microscopic WBC TNTC H (0-3) per hpf Ur Squamous Epith Cells Many H (None-Few) per lpf Urine Bacteria Many H (None-Few) per hpf Hyaline Casts Few (None-Few) per lpf Ur Culture Indicated? NO. A (NO) 11/27/17 Range/Units 00:07 WBC (4.3-11.1) K/mcL RBC (3.82-4.97) M/mcL Hgb (11.5-15.4) g/dL Hct (35.3-44.9) % MCV (83.0-100.0) fL MCH (28.0-33.3) pg MCHC (31.6-35.5) g/dL RDW (11.5-14.5) % Plt Count (140-400) K/mcL MPV (9.4-12.4) fL Seg Neutrophils % % Band Neutrophils % (0-4) % Lymphocytes % % Monocytes % % Neutrophils # (1.6-8.9) K/mcL Lymphocytes # (0.6-4.6) K/mcL Monocytes # (0.0-1.3) K/mcL Nucleated RBCs/100 WBC (0) /100 WBC Smudge Cells (Not Present) Toxic Granulation (Not Present) Platelet Estimate (Normal) Clumped Platelets (Not Present) Polychromasia (Not Present) Sodium (136-145) mEq/L Potassium (3.5-5.1) mEq/L Chloride (98-107) mEq/L Carbon Dioxide (23-29) mEq/L BUN (8-23) mg/dL Creatinine (0.60-1.20) mg/dL Est GFR ( Amer) (> 60) Est GFR (Non-Af Amer) (> 60) BUN/Creatinine Ratio (6-26) Glucose (70-105) mg/dL Calculated Osmolality (280-300) Lactic Acid 1.7 (0.5-2.2) mmol/L Calcium (8.6-10.3) mg/dL Total Bilirubin (0.3-1.0) mg/dL Direct Bilirubin (0.0-0.2) mg/dL Indirect Bilirubin (0.0-1.2) mg/dL AST (13-39) Units/L ALT (7-52) Units/L Alkaline Phosphatase (34-104) Units/L Troponin I (< 0.04) ng/mL Serum Total Protein (6.4-8.9) g/dL Albumin (3.5-5.7) g/dL Globulin (2.4-3.5) g/dL Albumin/Globulin Ratio (1.1-2.2) Lipase (11-82) Units/L Urine Color (Yellow) Urine Clarity (Clear) Urine pH (5.0-8.0) pH Units Ur Specific [place] (1.010-1.025) Urine Protein (Neg-Trace) mg/dL Urine Glucose (UA) (Normal) mg/dL Urine Ketones (Negative) mg/dL Urine Blood (Negative) Urine Nitrite (Negative) Urine Bilirubin (Negative) Urine Urobilinogen (Normal) mg/dL Ur Leukocyte Esterase (Negative) Urine Microscopic RBC (0-3) per hpf Urine Microscopic WBC (0-3) per hpf Ur Squamous Epith Cells (None-Few) per lpf Urine Bacteria (None-Few) per hpf Hyaline Casts (None-Few) per lpf Ur Culture Indicated? (NO) - Radiology Data Radiology results reviewed: Yes I reviewed the patient's radiology results. S.B.A.R. - S.B.A.R. Situation: Demographics, MOA Background: Presenting Complaint, Relevant PMH, Meds, & Allergies Assessment: Vital Signs, Course and respsone to treatment, Exam Concerns, Patient/Family Expectation, Pertinant Lab Results Recommendation: Barrier(s) to disposition, Recommendation based on pending studies, treatments, or consults S.B.A.R. Report Given to: Dr. Anne Attestation Statement - Attestation Attestation: I examined this patient and my medical decision-making was reviewed with the Resident Physician. I agree with the documented findings, disposition and treatment plan as described except to the extent set forth below. Findings consistent with C. difficile colitis. White blood cell count is 55,000. We will start oral vancomycin, IV fluids. Blood pressure remains hypotensive. We will proceed with admission to critical care unit. I spent greater than 35 minutes of critical care time resuscitating this acutely ill patient suffering from C. difficile colitis and sepsis. This was excluding billable procedures.
[2017-11-27 03:01] LABS: Albumin 2.5 g/dL (3.5-5.7); Bilirubin,Direct 0.3 mg/dL (0.0-0.2); Bilirubin,Indirect 0.6 mg/dL (0.0-1.2); Bilirubin,Total 0.9 mg/dL (0.3-1.0); Calcium 8.6 mg/dL (8.6-10.3); Globulin 2.6 g/dL (2.4-3.5); Potassium 4.5 mEq/L (3.5-5.1); Total Protein 5.1 g/dL (6.4-8.9)
--- NOTE | 2017-11-27 05:41 | Internal Med History&Physical ---
Date of Encounter: 11/28/17 Time of Encounter: 05:41 Internal Medicine - H&P: HPI Chief complaint: Abdominal pain History of present illness: Ms. Davis is a 76 year old female past medical history of hyperlipidemia, hypertension, COPD, appendectomy, cholecystectomy and recent admission earlier this month for treatment of C. difficile colitis on PO vancomycin who presented today due to abdominal pain and weakness. Patient is somewhat of a poor historian during my initial assessment and was unable to give me a good history. However per records, she has been having diarrhea for the past week associated with generally weakness. She is currently complaining of 10 out of 10 diffuse abdominal pain worse along the lower abdomen that is constant and nonradiating. Laboratory findings were significant for an elevated white blood cell count of over 55,000 with an elevated creatinine of 3.04. No reports of blood in her stool or dark tarry stools. Denies any focal numbness, tingling, weakness. She states that she also shortness breath, cough. Denies any chest pain. Denies any fevers, nausea, vomiting, back pain, flank pain, urinary symptoms. According to workup here, patient has new onset A. fib that is currently rate controlled. (Given aspirin and heparin) She also has UTI, patient was started on ceftriaxone by previous team. CT abdomen and pelvis shows diffuse colonic wall thickening with surrounding infiltration and trace free fluid was compatible with colitis, suggestive pseudomembranous colitis. Back containing umbilical hernia. Several scattered 5 mm or less in size nodules, recommend 12 month follow-up CT scan of the lungs for reassessment. We will admit patient to the ICU for close monitoring. Continue with PO vancomycin. Past Med Surg Social Fam HX - Past Medical History Medical history: diabetes, hyperlipidemia, hypertension, osteoporosis, COPD Additional medical history: neuropathy, anemia Psychiatric history: anxiety, depression - Past Surgical History Surgical History: cholecystectomy - Social History Smoking Status: Never smoker Smokeless Tobacco Status: No Alcohol use: none Drug use: none - Family History Mother Family Member Ethnicity: Non- Living Status: Hx Family Respiratory Disorders: Yes (Emphysema) Father Family Member Ethnicity: Non- Living Status: Brother Family Member Ethnicity: Non- Living Status: Hx Family Cardiac Disorders: Yes (IA) Sister Family Member Ethnicity: Non- Living Status: Hx Family Cardiac Disorders: Yes ([place], CAD) Internal Medicine - H&P: Meds Acetaminophen [Tylenol] 650 mg PO Q4H PRN 08/01/17 [History] Aspirin [Lo-Dose Aspirin EC] 81 mg PO HS 08/01/17 [History] BuPROPion SR (12 HR) [Wellbutrin SR] 100 mg PO BID 08/01/17 [History] Calcitriol [Rocaltrol] 0.25 mcg PO DAILY 08/01/17 [History] Cholecalciferol (D-3) [Vitamin D] 1,000 unit PO DAILY 08/01/17 [History] FLUoxetine HCl [Prozac] 80 mg PO DAILY 08/01/17 [History] Ferrous Sulfate [Iron] 325 mg PO HS 08/01/17 [History] Furosemide [Lasix] 20 mg PO MOWEFR 08/01/17 [History] Lovastatin 40 mg PO HS 08/01/17 [History] Mag Hydrox/Al Hydrox/Simeth [Antacid Suspension] 30 ml PO DAILY PRN 08/01/17 [ History] Magnesium Hydroxide [Milk of Magnesia] 30 ml PO DAILY PRN 08/01/17 [History] Nystatin POWDER [Nystop] 1 appl TP TID 08/01/17 [History] Ondansetron [Zofran ODT] 8 mg SL Q8H PRN 08/01/17 [History] Propranolol LA (24 HR) [Inderal LA] 60 mg PO DAILY 08/01/17 [History] Sennosides [Senna] 2 tab PO DAILY PRN 08/01/17 [History] predniSONE [PredniSONE] 3 mg PO DAILY 08/01/17 [History] amLODIPine [Norvasc] 10 mg PO DAILY tablet 08/06/17 [Rx] Insulin ASPART [NovoLOG] 0 - 12 unit SQ QID 10/17/17 [History] Insulin Glargine,Hum.rec.anlog [Lantus Solostar] 4 unit SQ 199910/17/17 [ History] Albuterol Neb [Proventil Neb] 2.5 mg IH [id number] PRN inhsol 10/25/17 [Rx] Lisinopril [Zestril] 2.5 mg PO DAILY tablet 10/25/17 [Rx] Tramadol HCl [Ultram] 50 mg PO BID PRN 3 Days #15 tab 10/25/17 [Rx] Loperamide [Imodium] 2 mg PO QID PRN MDD 8MG PER 24 HOURS 11/27/17 [History] 3 Allergy/AdvReac Type Severity Reaction Status Date / Time No Known Allergies Allergy Verified 11/27/17 08:55 All Systems PM: A 10-system review of systems was performed and is negative for pertinent findings except as documented above in the HPI. - Constitutional Constitutional: no chills, no fever(s), no night sweats - EENT Eyes: no change in vision, no discharge, no pain, no photophobia Ears: no ear discharge, no ear pain, no tinnitus Nose, mouth and throat: no dysphagia, no nasal discharge, no neck pain, no sore throat - Cardiovascular Cardiovascular ROS IM: no chest pain, no diaphoresis, no dyspnea, no lightheadedness, no palpitations, no syncope - Respiratory Respiratory: no cough, no dyspnea, no wheezing, no excessive phlegm production - Gastrointestinal Gastrointestinal: no abdominal pain, no diarrhea, no hematemesis, no hematochezia, no melena, no nausea, no vomiting - Genitourinary Genitourinary: no change in urinary stream, no dysuria, no flank pain, no hematuria - Musculoskeletal Musculoskeletal ROS IM: no numbness, no tingling - Integumentary Integumentary IM: no rash, no unusual bruising - Neurological Neurological ROS: no confusion, no convulsions, no focal weakness, no numbness, no tingling, no tremor(s) - Hematologic/Lymphatic Hematologic/Lymphatic: no easy bruising - Constitutional Vitals: Temp Pulse Resp BP Pulse Ox 97.6 F 82 18 98/62 97 11/26/17 21:15 11/27/17 05:06 11/27/17 05:06 11/27/17 05:06 11/27/17 05:06 Exam: General: Alert and oriented Skin:Normal color, no rash, no lesions. HEENT:EOM, pupils equal, round and reactive. Cardiovascular:Normal S1 & S2, no rubs, murmurs or gallops. No JVD. Pulse regular. Lungs:Normal breath sounds, no wheezes or crackles. Abdomen:Soft, non-tender, no rigidity. Extremities:No deformity, no edema or tenderness, no joint swelling or clubbing. Neurological:Normal cognition and motor skills. Pulses:Carotid and radial pulses normal +2. Rest of the physical exam is non contributory Internal Med - H&P Results - Labs CBC & Chem 7: 11/27/17 20:21 11/27/17 14:44 - Assessment and plan (1) Abdominal pain Status: Acute Assessment and plan: Abdominal pain secondary to colitis the most likely etiology of which is C. difficile. CT of the abdomen shows interval development of diffuse colonic wall thickening with surrounding infiltration and appearance highly suggestive of pseudomembranous colitis. No evidence of toxic megacolon. Continue generous fluid support, Lopez catheter placed for strict I's and O's, PO vancomycin. Pain control and anti-emetics. Will admit and monitor closely in the ICU due to concern of complications such as septic shock and toxic megacolon. Surgery and ICU staff made aware patient's condition. We will transfer patient to ICU coverage. Qualifiers: Abdominal location: generalized Qualified Code(s): R10.84 - Generalized abdominal pain (2) Clostridium difficile colitis Status: Acute Assessment and plan: Recent admission for C. 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 Consult ID for help in managing this patient. (3) Hyponatremia Status: Acute Assessment and plan: Mild hyponatremia likely secondary to GI losses. Patient receiving normal saline. We will monitor for now. (4) UTI (urinary tract infection) Status: Acute Assessment and plan: UA suggestive of urinary tract infection with large leukocyte esterase and numerous white blood cells and bacteria. Patient received 1 dose of ceftriaxone in the ED. Urine cultures were sent to the lab. Consider continuation ceftriaxone. Appreciate ID input. Qualifiers: Urinary tract infection type: site unspecified Hematuria presence: without hematuria Qualified Code(s): N39.0 - Urinary tract infection, site not specified (5) Leukocytosis Status: Acute Assessment and plan: Elevated white blood cell count of 55.6 with elevated bands in the setting of infection highly suspicious of C. difficile. Continue with by mouth vancomycin monitor. Qualifiers: Leukocytosis type: unspecified Qualified Code(s): D72.829 - Elevated white blood cell count, unspecified (6) [id number] kidney injury Status: Acute Assessment and plan: Likely secondary to intravascular volume depletion; prerenal in the setting of diarrhea due to C. difficile colitis. Patient received fluid bolus in the ED. We will continue with generous hydration and monitor for signs of overload which occurred on previous admission and treatment for C. difficile Qualifiers: Acute renal failure type: unspecified Chronic kidney disease stage: unspecified stage Qualified Code(s): N17.9 - Acute kidney failure, unspecified ; N18.9 - Chronic kidney disease, unspecified (7) Elevated troponin Status: Acute Assessment and plan: Elevated troponin of 0.04 in the setting of infectious colitis with significant GI fluid loss. Likely secondary to demand ischemia. We will trend troponin for now. (8) COPD (chronic obstructive pulmonary disease) Status: Chronic Assessment and plan: History of COPD. No evidence of acute exacerbation at this time. Continue patient's home inhalers. Qualifiers: COPD type: unspecified COPD Qualified Code(s): J44.9 - Chronic obstructive pulmonary disease, unspecified (9) Diabetes Status: Chronic Assessment and plan: Blood glucose checks and sliding scale insulin. 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
[2017-11-27 05:57] LABS: Nucleated Red Blood Cells 0.2 /100 WBC (0)
[2017-11-27 05:58] LABS: Hematocrit 35.7 % (35.3-44.9); Hemoglobin 11.2 g/dL (11.5-15.4); Mean Corpuscular HGB Conc 31.4 g/dL (31.6-35.5); Mean Corpuscular Volume 95.7 fL (83.0-100.0); Mean Platelet Volume 11.9 fL (9.4-12.4); Platelet Count 175 K/mcL (140-400); Red Blood Count 3.73 M/mcL (3.82-4.97); Red Cell Distribution Width 15.2 % (11.5-14.5)
[2017-11-27] MEDS ORDERED: Vancomycin Oral Soln 125 MG/2.5 ML UDC PO SCH (06:00)
[2017-11-27 06:21] LABS: Monocytes # 3.5 K/mcL (0.0-1.3); Platelet Estimate Normal (Normal)
[2017-11-27 06:23] LABS: Lymphocytes # 2.3 K/mcL (0.6-4.6); Neutrophils # 51.7 K/mcL (1.6-8.9); Toxic Granulation Present (Not Present)
[2017-11-27 06:24] LABS: Albumin 2.2 g/dL (3.5-5.7); Bilirubin,Total 0.5 mg/dL (0.3-1.0); Calcium 7.7 mg/dL (8.6-10.3); Globulin 2.2 g/dL (2.4-3.5); Potassium 4.4 mEq/L (3.5-5.1); Total Protein 4.4 g/dL (6.4-8.9)
[2017-11-27 06:25] LABS: Large Platelets Present (Not Present)
[2017-11-27] MEDS ORDERED: Ondansetron 4 MG/2 ML VIAL IVP PRN (06:56)
[2017-11-27] MEDS ORDERED: Ringers Solution, Lactated 500 ML IVC ONE ×3 (07:23→17:11)
[2017-11-27] MEDS: OXYCODONE Oral CONC 10 MG/0.5 ML ORAL.SYG SL PRN ×3 (07:24→19:43)
[2017-11-27] MEDS ORDERED: Ringers Solution, Lactated 1,000 ML ONE ×2 (07:29→16:20)
[2017-11-27] MEDS ORDERED: traMADol 50 MG TABLET PO PRN (07:30)
--- NOTE | 2017-11-27 07:39 | Pulmonology Consult Note ---
<Naldo Duvall W - Last Filed: 11/27/17 08:42> Date of Encounter: 11/27/17 Medications and Allergies Acetaminophen [Tylenol] 650 mg PO Q4H PRN 08/01/17 [History] Aspirin [Lo-Dose Aspirin EC] 81 mg PO HS 08/01/17 [History] BuPROPion SR (12 HR) [Wellbutrin SR] 100 mg PO BID 08/01/17 [History] Calcitriol [Rocaltrol] 0.25 mcg PO DAILY 08/01/17 [History] Cholecalciferol (D-3) [Vitamin D] 1,000 unit PO DAILY 08/01/17 [History] FLUoxetine HCl [Prozac] 80 mg PO DAILY 08/01/17 [History] Ferrous Sulfate [Iron] 325 mg PO HS 08/01/17 [History] Furosemide [Lasix] 20 mg PO MOWEFR 08/01/17 [History] Lovastatin 40 mg PO HS 08/01/17 [History] Mag Hydrox/Al Hydrox/Simeth [Antacid Suspension] 30 ml PO DAILY PRN 08/01/17 [ History] Magnesium Hydroxide [Milk of Magnesia] 30 ml PO DAILY PRN 08/01/17 [History] Nystatin POWDER [Nystop] 1 appl TP TID 08/01/17 [History] Ondansetron [Zofran ODT] 8 mg SL Q8H PRN 08/01/17 [History] Propranolol LA (24 HR) [Inderal LA] 60 mg PO DAILY 08/01/17 [History] Sennosides [Senna] 2 tab PO DAILY PRN 08/01/17 [History] predniSONE [PredniSONE] 3 mg PO DAILY 08/01/17 [History] amLODIPine [Norvasc] 10 mg PO DAILY tablet 08/06/17 [Rx] Insulin ASPART [NovoLOG] 0 - 12 unit SQ QID 10/17/17 [History] Insulin Glargine,Hum.rec.anlog [Lantus Solostar] 4 unit SQ 199910/17/17 [ History] Albuterol Neb [Proventil Neb] 2.5 mg IH [id number] PRN inhsol 10/25/17 [Rx] Lisinopril [Zestril] 2.5 mg PO DAILY tablet 10/25/17 [Rx] Tramadol HCl [Ultram] 50 mg PO BID PRN 3 Days #15 tab 10/25/17 [Rx] Loperamide [Imodium] 2 mg PO QID PRN MDD 8MG PER 24 HOURS 11/27/17 [History] 3 Allergy/AdvReac Type Severity Reaction Status Date / Time No Known Allergies Allergy Verified 11/27/17 08:55 All Systems: The remainder of the systems were reviewed and are negative Physical Examination Vital Signs: Vital Signs, Last 4 Hours Pulse Resp BP Pulse Ox 11/27/17 08:17 87 11/27/17 06:03 76 19 94/77 99 Results - Laboratory Findings CBC and BMP: 11/27/17 05:37 11/27/17 05:37 Abnormal lab findings: Abnormal lab results WBC 58.1 K/mcL (4.3-11.1) H* 11/27/17 05:37 RBC 3.73 M/mcL (3.82-4.97) L 11/27/17 05:37 Hgb 11.2 g/dL (11.5-15.4) L D 11/27/17 05:37 MCHC 31.4 g/dL (31.6-35.5) L 11/27/17 05:37 RDW 15.2 % (11.5-14.5) H 11/27/17 05:37 Band Neutrophils % 10.0 % (0-4) H 11/27/17 05:37 Metamyelocytes % 1.0 % (0) H 11/27/17 05:37 Neutrophils # 51.7 K/mcL (1.6-8.9) H 11/27/17 05:37 Monocytes # 3.5 K/mcL (0.0-1.3) H 11/27/17 05:37 Nucleated RBCs/100 WBC 0.2 /100 WBC (0) H 11/27/17 05:37 Smudge Cells Present (Not Present) A 11/26/17 22:15 Toxic Granulation Present (Not Present) A 11/27/17 05:37 Large Platelets Present (Not Present) A 11/26/17 22:15 Polychromasia 1+ (Not Present) A 11/26/17 22:15 Sodium 131 mEq/L (136-145) L 11/27/17 05:37 Carbon Dioxide 19 mEq/L (23-29) L 11/27/17 05:37 BUN 60 mg/dL (8-23) H 11/27/17 05:37 Creatinine 3.17 mg/dL (0.60-1.20) H 11/27/17 05:37 Est GFR ( Amer) 17 (> 60) L 11/27/17 05:37 Est GFR (Non-Af Amer) 14 (> 60) L 11/27/17 05:37 Glucose 174 mg/dL (70-105) H 11/27/17 05:37 POC Glucose 157 mg/dL (70-99) H 11/27/17 06:44 Calcium 7.7 mg/dL (8.6-10.3) L 11/27/17 05:37 Direct Bilirubin 0.3 mg/dL (0.0-0.2) H 11/26/17 22:15 AST 40 Units/L (13-39) H 11/27/17 05:37 ALT 65 Units/L (7-52) H 11/27/17 05:37 Serum Total Protein 4.4 g/dL (6.4-8.9) L 11/27/17 05:37 Albumin 2.2 g/dL (3.5-5.7) L 11/27/17 05:37 Globulin 2.2 g/dL (2.4-3.5) L 11/27/17 05:37 Albumin/Globulin Ratio 1.0 (1.1-2.2) L 11/27/17 05:37 Lipase 4 Units/L (11-82) L 11/26/17 22:15 Urine Clarity Turbid (Clear) A 11/26/17 23:45 Urine Blood Small (Negative) H 11/26/17 23:45 Urine Bilirubin Small (Negative) H 11/26/17 23:45 Ur Leukocyte Esterase Large (Negative) H 11/26/17 23:45 Urine Microscopic WBC TNTC per hpf (0-3) H 11/26/17 23:45 Ur Squamous Epith Cells Many per lpf (None-Few) H 11/26/17 23:45 Urine Bacteria Many per hpf (None-Few) H 11/26/17 23:45 Ur Culture Indicated? NO. (NO) A 11/26/17 23:45 Consult Discharge Plan - Plan Referrals: NONE,PCP [Primary Care Provider] - - Attending Attestation I examined this patient and my medical decision-making was reviewed with the Resident Physician. I agree with the documented findings, disposition and treatment plan as described except to the extent set forth below. We independently had [id number] contact with the patient Patient seen and examined at bedside Labs, radiology, chart personally reviewed. Management was reviewed during multidisciplinary critical care rounds. 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 TRIMMER: Mild encephalopathy likely secondary to sepsis no for a focal neurological deficit Pulm: Stable oxygenation on room air continue to monitor Cards: Severe sepsis lactate normal volume resuscitation given slight troponin elevation was likely demand ischemia and is normalized GI: Fulminant Clostridium difficile infection with intractable nausea no evidence of ileus NG tube passed start by mouth vancomycin through NG tube and the metronidazole general surgery consulted no clear indication for surgical intervention at this moment but this could progress quickly to needing colectomy Nutrition: Nothing by mouth for now Renal: Acute kidney injury on chronic kidney disease likely secondary to hypovolemia and sepsis along with GI losses. UOP Monitored, Cont to Trend sCr and monitor Electrolytes. ID: Clostridium difficile infection management as above Heme/Onc: DVT prophylaxis given. Check INR continue to trend H&H and platelets daily Endo: Glucose Monitored Integ/MSK: She has a right-sided hematoma associated with the hip region appears stable it is tender to palpation but not taut or firm H&H is stableSkin Care per routine ICU Nursing Protocol to prevent ulcers. Dispo: Remain in ICU for close monitoring CODE: Full <Virgie Roman - Last Filed: 11/27/17 11:06> Date of Encounter: 11/27/17 Time of Encounter: 07:26 Assessment and Plan (1) Clostridium difficile colitis Current Visit: Yes Status: Acute Pt was dx with C diff during 10/17/17 admission and placed on 125mg oral vancomycin QID. Recurrent/chronic C diff this visit will be treated with oral vancomycin 500mg QID, IV Metronidazole 500mg TID. Nausea will be treated with Zofran 4mg Q6 interlaced with phenergen 12.5mg Q6 WBC >55k, Cr 3.17, high concern for fulminant C diff, surgery is on board KUB shows no evidence of bowel obstruction, abnormal bowel gas pattern, or toxic megacolon Close monitoring (2) Abdominal pain Current Visit: Yes Status: Acute Abdominal pain in the setting of recurrent pseudomembranous colitis without evidence of bowel obstruction or perforation Oxycodone 5mg Q6 SL for pain 4-6 Oxycodone 10mg Q6 for severe pain Zofran 4mg IV Q6 for nausea, phenergen 12.5mg for continued nausea Q6 Qualifiers: Abdominal location: generalized Qualified Code(s): R10.84 - Generalized abdominal pain (3) UTI (urinary tract infection) Current Visit: Yes Status: Acute Initial UA was contaminated with many sq cells, but showed larke leukocyte esterase and was turbid. No culture was indicated based upon the initial findings, but culture has subsequently been ordered. She got a dose of ceftriaxone in the ED and we will await urine culture results for further management. Qualifiers: Urinary tract infection type: site unspecified Hematuria presence: without hematuria Qualified Code(s): N39.0 - Urinary tract infection, site not specified (4) Leukocytosis Current Visit: No Status: Acute WBC >55k and Lactic 2.5 in the setting of pseudomembraneous colitis. Continue to treat C diff infection and follow WBC, trend lactic Q6 Qualifiers: Leukocytosis type: unspecified Qualified Code(s): D72.829 - Elevated white blood cell count, unspecified (5) CKD (chronic kidney disease) stage 4, GFR 15-29 ml/min Current Visit: No Status: Chronic Cr 3.17 this AM, likely exacerbated by dehydration since she has been unable to tolerate PO for the last several days. Gentle hydration, renal dosing when necessary. Careful monitoring. (6) COPD (chronic obstructive pulmonary disease) Current Visit: No Status: Chronic Never a smoker. Hx of asthma treated at home with CPAP at night and occasion nebulizers. She feels that she is breathing ok now, but states she was short of breath on her last hospital admission. CPAP at night QHS. Qualifiers: COPD type: unspecified COPD Qualified Code(s): J44.9 - Chronic obstructive pulmonary disease, unspecified (7) HTN (hypertension) Current Visit: No Status: Chronic Hx of HTN, pressures stable now, on lisinopril 2.5mg QD, amlodipine 10mg QD, propranolol 60mg QD, Furosemide 20mg QD. Monitor BP and administer propranolol to keep SBP <160 Qualifiers: Hypertension type: essential hypertension Qualified Code(s): I10 - Essential (primary) hypertension (8) DVT prophylaxis Current Visit: No Status: Acute Heparin 5k units SC TID History of Present Illness Consult date: 11/27/17 Requesting physician: Kinsey Vines Reason for consult: cough Chief complaint: abd pain History of present illness: Pt is a 76F [facility] resident presenting with 1wk hx of abd pain and weakness. She was previously dx with C diff during a 10/17/17 admission and placed on oral vancomycin 125mg QID. She is also complaining of a cough and shortness of breath x 1 week. PmHx of hyperlipiedmia, HTN, COPD, appendectomy, choleycystecomy. Abd pain is now described as 8/10, non radiating, constant, crampy in nature, with concomittent nausea. History is limited by patient being unable to remember things, but chart review revealed frequent falls and visits to [facility] ED and admissions for T10 fx in July, C diff and tracheobronchitis in September, Fall on 11/25, and today's admission. Pt was never a smoker, but has a hx of asthma, uses a CPAP at night, and nebulizer occasionally as needed. Feels that her breathing is ok now, but felt SOB two weeks ago "while in the hospital ". Past Med Surg Social Fam HX - Past Medical History Medical history: diabetes, hyperlipidemia, hypertension, osteoporosis, COPD Additional medical history: neuropathy, anemia Psychiatric history: anxiety, depression - Past Surgical History Surgical History: cholecystectomy - Social History Smoking Status: Never smoker Smokeless Tobacco Status: No Alcohol use: none Drug use: none - Family History Mother Family Member Ethnicity: Non- Living Status: Hx Family Respiratory Disorders: Yes (Emphysema) Father Family Member Ethnicity: Non- Living Status: Brother Family Member Ethnicity: Non- Living Status: Hx Family Cardiac Disorders: Yes (NE) Sister Family Member Ethnicity: Non- Living Status: Hx Family Cardiac Disorders: Yes (NE, CAD) All Systems: The remainder of the systems were reviewed and are negative - Constitutional Constitutional: frequent falls, weakness, no fever(s) - EENT Nose, mouth and throat: dry mouth - Cardiovascular Cardiovascular: no chest pain, no dyspnea - Respiratory Respiratory: cough, no dyspnea, no hemoptysis, no wheezing - Gastrointestinal Gastrointestinal: abdominal pain, cramping, diarrhea, loose stools, nausea, vomiting, no hematemesis, no hematochezia - Neurological Neurological: frequent falls, memory loss, weakness - Psychiatric Psychiatric: as per HPI Physical Examination Vital Signs: Vital Signs, Last 4 Hours Pulse Resp BP Pulse Ox 11/27/17 06:03 76 19 94/77 99 General appearance: appears uncomfortable Eyes: nonicteric ENT: oropharynx dry Effort: normal Auscultation: bilateral: clear Cardiovascular: regular rate and rhythm Gastrointestinal: normoactive bowel sounds, soft, tender, non-distended Integumentary: other (Multiple bruises present on CARMINA UE, none on LE) normal mental status mood appropriate Results - Laboratory Findings CBC and BMP: 11/27/17 05:37 11/27/17 05:37 Abnormal lab findings: Abnormal lab results WBC 58.1 K/mcL (4.3-11.1) H* 11/27/17 05:37 RBC 3.73 M/mcL (3.82-4.97) L 11/27/17 05:37 Hgb 11.2 g/dL (11.5-15.4) L D 11/27/17 05:37 MCHC 31.4 g/dL (31.6-35.5) L 11/27/17 05:37 RDW 15.2 % (11.5-14.5) H 11/27/17 05:37 Band Neutrophils % 10.0 % (0-4) H 11/27/17 05:37 Metamyelocytes % 1.0 % (0) H 11/27/17 05:37 Neutrophils # 51.7 K/mcL (1.6-8.9) H 11/27/17 05:37 Monocytes # 3.5 K/mcL (0.0-1.3) H 11/27/17 05:37 Nucleated RBCs/100 WBC 0.2 /100 WBC (0) H 11/27/17 05:37 Smudge Cells Present (Not Present) A 11/26/17 22:15 Toxic Granulation Present (Not Present) A 11/27/17 05:37 Large Platelets Present (Not Present) A 11/26/17 22:15 Polychromasia 1+ (Not Present) A 11/26/17 22:15 Sodium 131 mEq/L (136-145) L 11/27/17 05:37 Carbon Dioxide 19 mEq/L (23-29) L 11/27/17 05:37 BUN 60 mg/dL (8-23) H 11/27/17 05:37 Creatinine 3.17 mg/dL (0.60-1.20) H 11/27/17 05:37 Est GFR ( Amer) 17 (> 60) L 11/27/17 05:37 Est GFR (Non-Af Amer) 14 (> 60) L 11/27/17 05:37 Glucose 174 mg/dL (70-105) H 11/27/17 05:37 POC Glucose 157 mg/dL (70-99) H 11/27/17 06:44 Calcium 7.7 mg/dL (8.6-10.3) L 11/27/17 05:37 Direct Bilirubin 0.3 mg/dL (0.0-0.2) H 11/26/17 22:15 AST 40 Units/L (13-39) H 11/27/17 05:37 ALT 65 Units/L (7-52) H 11/27/17 05:37 Serum Total Protein 4.4 g/dL (6.4-8.9) L 11/27/17 05:37 Albumin 2.2 g/dL (3.5-5.7) L 11/27/17 05:37 Globulin 2.2 g/dL (2.4-3.5) L 11/27/17 05:37 Albumin/Globulin Ratio 1.0 (1.1-2.2) L 11/27/17 05:37 Lipase 4 Units/L (11-82) L 11/26/17 22:15 Urine Clarity Turbid (Clear) A 11/26/17 23:45 Urine Blood Small (Negative) H 11/26/17 23:45 Urine Bilirubin Small (Negative) H 11/26/17 23:45 Ur Leukocyte Esterase Large (Negative) H 11/26/17 23:45 Urine Microscopic WBC TNTC per hpf (0-3) H 11/26/17 23:45 Ur Squamous Epith Cells Many per lpf (None-Few) H 11/26/17 23:45 Urine Bacteria Many per hpf (None-Few) H 11/26/17 23:45 Ur Culture Indicated? NO. (NO) A 11/26/17 23:45 - Diagnostic Findings Chest x-ray: report reviewed, image reviewed CT scan - chest: report reviewed, image reviewed
[2017-11-27] MEDS ORDERED: D5% in Water 1,000 ML IVC PRN (07:47)
[2017-11-27] MEDS ORDERED: Albuterol 2.5 MG/3 ML NEBULIZER IH PRN (07:47)
[2017-11-27] MEDS ORDERED: Dextrose Gel 15 GM/37.5 ML TUBE PO PRN ×2 (07:47)
[2017-11-27] MEDS ORDERED: *HR* Dextrose 50 % in Water (Syg) 50 ML SYRINGE IVP PRN (07:47)
[2017-11-27] MEDS: Vancomycin Oral Soln 125 MG/2.5 ML UDC PO SCH ×4 (08:15→21:12)
[2017-11-27] MEDS: MetroNIDAZOLE 500 MG/100 ML 500 MG/100 ML BAG IVPB SCH ×2 (08:41→17:11)
[2017-11-27] MEDS: *HR* Heparin 5,000 UNIT/ML VIAL SQ SCH ×2 (08:41→17:11)
[2017-11-27] MEDS ORDERED: Propranolol LA (24 HR) 60 MG CAP.SA.24H PO SCH (09:00)
[2017-11-27 09:31] LABS: INR 1.1; Prothrombin Time 12.2 Seconds (9.4-12.1)
[2017-11-27 09:42] LABS: Acetaminophen < 10 mcg/mL (10-20)
[2017-11-27 09:50] LABS: Troponin I 0.03 ng/mL (< 0.04)
[2017-11-27] MEDS ORDERED: *HR* Promethazine 25 MG/ML VIAL IVP PRN (09:58)
--- NOTE | 2017-11-27 13:31 | Infectious Disease Consult ---
Date of Encounter: 11/27/17 Time of Encounter: 12:15 Assessment and Plan (1) Severe sepsis Status: Acute Assessment and plan: The patient has two SIRS criteria plus CLAU and lactic acidosis. Likely secondary to C. diff colitis and possible UTI. WBC worse this morning. The patient continues to have tachycardia. Lactic acid elevated at 2.5. Repeat lactic acid ordered per the primary team. No blood cultures have been drawn. Get blood cultures x 2 sets now. IV fluid resuscitation per the primary team. (2) Clostridium difficile colitis Status: Acute Assessment and plan: First recurrence. Severe and complicated. Previously diagnosed 10/19/17 and treated with 10 day course of PO Vancomycin. It is unclear if the patient's symptoms improved/resolved. CT of the abdomen and pelvis show findings consistent with colitis. No toxic megacolon or perforation noted. General surgery consulted. Appreciate recommendations. Continue Vancomycin 500mg PO QID. Continue Flagyl 500mg IV TID. Duration of treatment depends on the clinical picture, but likely a total of 14 days. C. diff precautions per protocol. (3) UTI (urinary tract infection) Status: Acute Assessment and plan: UTI vs. asymptomatic bacteriuria. Urine culture 11/25/17 grew E. coli, resistant to ampicillin and Unasyn. The patient denies urinary frequency or dysuria, but does have abdominal pain which could be from UTI, but more likely from C. diff. Received Rocephin x 1 in the ER. Start Rocephin 2 gram IV daily for now until blood cultures return. Duration of treatment depends on the clinical picture. Qualifiers: Urinary tract infection type: site unspecified Hematuria presence: without hematuria Qualified Code(s): N39.0 - Urinary tract infection, site not specified (4) [id number] kidney injury Status: Acute Assessment and plan: Likely multifactorial: sepsis + dehydration. Continue to trend. Dose-adjust medications and avoid nephrotoxins. Strict I's and O's. May need to consider nephrology consult if her kidney function fails to improve. Qualifiers: Acute renal failure type: unspecified Chronic kidney disease stage: unspecified stage Qualified Code(s): N17.9 - Acute kidney failure, unspecified ; N18.9 - Chronic kidney disease, unspecified (5) Elevated troponin Status: Acute Assessment and plan: Management per the primary team. (6) Hyponatremia Status: Acute Assessment and plan: Likeyly secondary to dehydration. Further workup and management per the primary team. (7) Abdominal pain Status: Acute Assessment and plan: Likely secondary to C. diff colitis vs. UTI. Pain management per the primary team. Qualifiers: Abdominal location: generalized Qualified Code(s): R10.84 - Generalized abdominal pain (8) Chronic a-fib Status: Acute (9) Diabetes Status: Chronic Qualifiers: Diabetes mellitus type: type 2 Diabetes mellitus terminal operations manager insulin use: with fpc use Diabetes mellitus complication status: without complication Qualified Code(s): E11.9 - Type 2 diabetes mellitus without complications; Z79.4 - long term care administrator (current) use of insulin (10) HTN (hypertension) Status: Chronic Qualifiers: Hypertension type: essential hypertension Qualified Code(s): I10 - Essential (primary) hypertension (11) HLD (hyperlipidemia) Status: Chronic Qualifiers: Hyperlipidemia type: unspecified Qualified Code(s): E78.5 - Hyperlipidemia , unspecified (12) COPD (chronic obstructive pulmonary disease) Status: Chronic Qualifiers: COPD type: unspecified COPD Qualified Code(s): J44.9 - Chronic obstructive pulmonary disease, unspecified (13) Osteoporosis Status: Chronic Qualifiers: Osteoporosis type: unspecified Presence of current pathological fracture: with current pathological fracture Encounter type: initial encounter Qualified Code(s): M80.00XA - Age-related osteoporosis with current pathological fracture, unspecified site, initial encounter for fracture (14) Hx of fall Status: Chronic Assessment and plan: Status post fall 11/25/17. Imaging negative for fracture. Infectious Disease HPI - Data of Consult Patient: new to practice Consult date: 11/27/17 Requesting Physician: Hai Anne MD Primary Care Provider: PCP NONE - Consult Narrative Reason for consult: C. diff colitis History of present illness: Ms. Davis is a 76 year old female with a past medical history of HTN. DM. HLD , A-fib, Alzheimer's disease, and C. diff. The patient was admitted to the hospital 11/26/17 for C. diff. We are consulted 11/27/17 for further recommendations for C. diff. Briefly, the patient is a 76 year old female with a past medical history as stated above. The patient is somewhat of a poor historian regarding the events leading up to her hospitalization, therefore, most of the information is obtained from the medical record. Apparently, the patient was admitted to the hospital 10/17/17-10/25/17 for fluid volume overload. While hospitalized, she was diagnosed with C. diff and completed a 10 day course of PO Vancomycin. It is unclear if the patient's symptoms resolved. On 11/25/17, the patient fell at the ECF and was evaluated in the ED. Imaging was done and was negative and she was discharged back to the [facility]. Yesterday, the patient was sent back to the ER for evaluation of abdominal pain and diarrhea. Upon arrival to the ER, the patient was afebrile and hemodynamically stable. She had a markedly elevated WBC at 58, 000 with 16%bands and CLAU with a serum creatinine of 3.04. CT of the abdomen and pelvis showed findings consistent with colitis. Urinalysis was positive for large amount of leukocyte esterase, but also had large amount of epithelial cells. Culture is pending, but the medical record shows a positive urine culture on 11/25/17 that grew E. coli. It does not appear the patient was on any antibiotics at the [facility] for this. C. diff PCR was positive. The patient was given a dose of IV Rocephin for UTI and was started on PO Vancomycin and admitted to the hospital for further evaluation. Since admission, the patient has developed mild tachycardia and her WBC went up to 58,000 with 10% bands. KUB this morning showed findings consistent with colitis seen on CT abdomen and pelvis. Chest x-ray was negative for acute cardiopulmonary abnormality. NG tube and mendez catheter were placed this morning. General surgery has been consulted. Currently, the patient is on PO Vancomycin. We've been asked to evaluate and make further recommendations. During my exam today, the patient states that she doesn't feel very well. She denies any known fevers, chills, or rigors. She does complain of chest pain, shortness of breath, and a dry cough. She denies nausea or vomiting. Per nursing , patient has had two loose stools this morning. The patient denies any dysuria or urinary frequency. She does complain of bilateral lower abdominal pain, cramping and constant in nature. She denies oral thrush or skin lesions at this time. The patient currently resides at a local [facility]. She denies tobacco, alcohol, or illicit drug use. CC: Hai Anne MD Past Med Surg Social Fam HX - Past Medical History Attestation: Yes The following information was validated with the patient. Source: patient, old records reviewed, nursing notes reviewed Medical history: diabetes, hyperlipidemia, hypertension, osteoporosis, COPD Additional medical history: neuropathy, anemia Psychiatric history: anxiety, depression - Past Surgical History Surgical History: cholecystectomy - Social History Smoking Status: Never smoker Smokeless Tobacco Status: No Alcohol use: none Drug use: none Occupational status: retired Current living situation: ECF Activity Level: Uses cane/walker Recent Out of Country Travel Within the Last 8 Weeks: No Exposure or Possible Exposure to Illness During Travel: No - Family History Mother Family Member Ethnicity: Non- Living Status: Hx Family Respiratory Disorders: Yes (Emphysema) Father Family Member Ethnicity: Non- Living Status: Brother Family Member Ethnicity: Non- Living Status: Hx Family Cardiac Disorders: Yes ([place]) Sister Family Member Ethnicity: Non- Living Status: Hx Family Cardiac Disorders: Yes ([place], CAD) Infectious Disease-CN:Meds Acetaminophen [Tylenol] 650 mg PO Q4H PRN 08/01/17 [History] Aspirin [Lo-Dose Aspirin EC] 81 mg PO HS 08/01/17 [History] BuPROPion SR (12 HR) [Wellbutrin SR] 100 mg PO BID 08/01/17 [History] Calcitriol [Rocaltrol] 0.25 mcg PO DAILY 08/01/17 [History] Cholecalciferol (D-3) [Vitamin D] 1,000 unit PO DAILY 08/01/17 [History] FLUoxetine HCl [Prozac] 80 mg PO DAILY 08/01/17 [History] Ferrous Sulfate [Iron] 325 mg PO HS 08/01/17 [History] Furosemide [Lasix] 20 mg PO MOWEFR 08/01/17 [History] Lovastatin 40 mg PO HS 08/01/17 [History] Mag Hydrox/Al Hydrox/Simeth [Antacid Suspension] 30 ml PO DAILY PRN 08/01/17 [ History] Magnesium Hydroxide [Milk of Magnesia] 30 ml PO DAILY PRN 08/01/17 [History] Nystatin POWDER [Nystop] 1 appl TP TID 08/01/17 [History] Ondansetron [Zofran ODT] 8 mg SL Q8H PRN 08/01/17 [History] Propranolol LA (24 HR) [Inderal LA] 60 mg PO DAILY 08/01/17 [History] Sennosides [Senna] 2 tab PO DAILY PRN 08/01/17 [History] predniSONE [PredniSONE] 3 mg PO DAILY 08/01/17 [History] amLODIPine [Norvasc] 10 mg PO DAILY tablet 08/06/17 [Rx] Insulin ASPART [NovoLOG] 0 - 12 unit SQ QID 10/17/17 [History] Insulin Glargine,Hum.rec.anlog [Lantus Solostar] 4 unit SQ 2000 10/17/17 [ History] Albuterol Neb [Proventil Neb] 2.5 mg IH [id number] PRN inhsol 10/25/17 [Rx] Lisinopril [Zestril] 2.5 mg PO DAILY tablet 10/25/17 [Rx] Tramadol HCl [Ultram] 50 mg PO BID PRN 3 Days #15 tab 10/25/17 [Rx] Loperamide [Imodium] 2 mg PO QID PRN MDD 8MG PER 24 HOURS 11/27/17 [History] 3 Allergy/AdvReac Type Severity Reaction Status Date / Time No Known Allergies Allergy Verified 11/27/17 08:55 All systems: reviewed and no additional remarkable complaints except as stated Exam - Constitutional Vitals: Temp Pulse Resp BP Pulse Ox 98.7 F 96 20 106/67 98 11/27/17 11:00 11/27/17 12:00 11/27/17 12:00 11/27/17 12:00 11/27/17 12:00 General appearance: average body habitus, cooperative, no acute distress - Head Head exam: Present: normal inspection, normocephalic. Absent: atraumatic ( Ecchymosis noted to the left forehead.) - Eye Eye exam: Present: EOMI, PERRL Pupils: Present: normal accommodation Additional comments: Subconjunctival hemorrhage noted to the left lateral conjunctiva. - ENT ENT exam: Present: mucous membranes dry Additional comments: Poor dentition noted. - Neck Neck exam: Present: normal inspection - Respiratory Respiratory exam: Present: CTAB. Absent: rales, respiratory distress, rhonchi, wheezes - Cardiovascular Cardiovascular exam: Present: irregular rhythm, tachycardia - GI/Abdominal GI/Abdominal exam: Present: hypoactive bowel sounds, soft, tenderness (RLQ, LLQ) . Absent: distended Additional comments: NG tube to LIWS. Mendez catheter noted to be draining small amount of dark yellow urine. - Extremities Exam Extremities exam: Present: normal inspection. Absent: joint swelling, pedal edema, tenderness - Neurological Exam Neurological exam: Present: alert, no focal deficits. Absent: oriented X3 ( Oriented to person and place.) - Psychiatric Psychiatric exam: Present: normal affect, normal mood - Skin Skin exam: Present: dry, intact, normal color, warm Infectious Disease CN: Results - Labs CBC & Chem 7: 11/27/17 20:21 11/27/17 14:44 Consult Discharge Plan - Plan Referrals: NONE,PCP [Primary Care Provider] - - Attending Attestation This is an addendum to original report dictated by Brittnee Banuelos CNP. Please refer to Brittnee's note for full detail. Patient is a 76-year-old woman with extensive past medical history mentioned below who came in with severe sepsis likely secondary to fulminant C. difficile colitis. Patient apparently had recently had C. difficile colitis and was treated with 10 day course of oral vancomycin on 10/19/2017. Patient came in workup revealed a CT abdomen and pelvis consistent with colitis but no toxic megacolon, perforation or ileus. We were asked to evaluate the patient and make recommendations. I evaluated the patient and saw Dr. Dean and discussed the case with him and the pulmonary team. At this point patient is very ill but is still hemodynamically stable. As for the C. difficile colitis we will do vancomycin orally 500 mg every 6 hours and IV Flagyl 3 times a day. I do not believe we need to do her rectum vancomycin since patient has no ileus. Patient also has a UTI. I am not sure if that is contributing to her sepsis like picture so I will continue Rocephin right now she received 1 dose. I figured we will wait for the blood cultures to finalize make sure she does not have bacteremia and maybe stop the antibiotics and aortic 2. Discussed with the ICU team and discussed with Dr. Dean. Prognosis Is guarded
[2017-11-27] MEDS: Insulin LISPRO 300 UNITS/3 ML VIAL SQ SCH ×2 (14:17→17:12)
[2017-11-27] MEDS: *HR* OxyCODONE Immed Rel 5 MG TABLET PO PRN ×2 (14:23→20:55)
[2017-11-27 15:04] LABS: Basophils % 0.3 %; Lymphocytes % 1.5 %; Nucleated Red Blood Cells 0.5 /100 WBC (0)
[2017-11-27 15:05] LABS: Basophils # 0.3 K/mcL (0.0-0.2); Hematocrit 44.3 % (35.3-44.9); Immature Granulocytes % 7.6 % (0-4); Lymphocytes # 1.3 K/mcL (0.6-4.6); Mean Corpuscular HGB Conc 31.6 g/dL (31.6-35.5); Mean Corpuscular Hemoglobin 30.6 pg (28.0-33.3); Mean Corpuscular Volume 96.7 fL (83.0-100.0); Mean Platelet Volume 12.6 fL (9.4-12.4); Monocytes % 6.9 %; Neutrophils # 73.5 K/mcL (1.6-8.9); Platelet Count 224 K/mcL (140-400); Red Blood Count 4.58 M/mcL (3.82-4.97); Red Cell Distribution Width 15.2 % (11.5-14.5); Segmented Neutrophils % 83.7 %
[2017-11-27 15:14] LABS: Monocytes # 6.1 K/mcL (0.0-1.3)
[2017-11-27 15:20] LABS: Calcium 7.9 mg/dL (8.6-10.3)
--- NOTE | 2017-11-27 16:13 | General Surgery Consult Note ---
Date of Encounter: 11/27/17 Time of Encounter: 16:00 Assessment and Plan (1) Clostridium difficile colitis Current Visit: Yes Status: Acute NPO IV Flagyl per ID recommendations PO Vancomycin per ID recommendations NG tube to LIWS IV fluid resuscitation Serial abdominal exams Surgery will continue to follow closely for recommendations (2) UTI (urinary tract infection) Current Visit: Yes Status: Acute Management per ID and critical care Rocephin IV Qualifiers: Urinary tract infection type: site unspecified Hematuria presence: without hematuria Qualified Code(s): N39.0 - Urinary tract infection, site not specified (3) [id number] kidney injury Current Visit: Yes Status: Acute Cr- 3.04>3.39 Strict I&Os Lopez catheter to SD Avoid nephrotoxic medications IV fluids Repeat am labs Qualifiers: Acute renal failure type: unspecified Chronic kidney disease stage: unspecified stage Qualified Code(s): N17.9 - Acute kidney failure, unspecified ; N18.9 - Chronic kidney disease, unspecified (4) Lactic acidosis Current Visit: Yes Status: Acute 1.7>2.5>2.9 Serial lab draws ordered per critical care team History of Present Illness Consult date: 11/27/17 Reason for consult: other (C-diff colitis) History of present illness: Ms. Davis is a 76 year old female who [facility] She is a senior living resident due to increasing falls and inability to care for herself. She is a poor historian and much of the history is obtained from the medical record as well as the medical staff caring for her. She was admitted at the end of September for fluid overload and was found to have c-diff colitis. The patient was [facility] back to the [facility] with treatment for c-diff colitis (PO Vanco). It is unclear whether the patient's symptoms resolved after treatment. She reported back to the ED last evening with a 1 week history of abdominal discomfort, diarrhea and weakness. The patient tested positive for c-diff. She did have a CT scan as well which is concerning for diffuse colitis. She has been admitted to the ICU and treatment initiated for c-diff colitis, UTI, and CLAU. We have been asked to see and evaluate the patient for recommendations. Past Med Surg Social Fam HX - Past Medical History Source: old records reviewed Medical history: COPD, diabetes, hyperlipidemia, hypertension, osteoporosis, renal disease (CKD), other Additional medical history: neuropathy, anemia, BAYRON, pulmonary nodule Psychiatric history: anxiety, depression - Past Surgical History Surgical History: cataract, cholecystectomy - Social History Smoking Status: Never smoker Smokeless Tobacco Status: No Alcohol use: none Drug use: none Current living situation: ECF - Family History Mother Family Member Ethnicity: Non- Living Status: Hx Family Respiratory Disorders: Yes (Emphysema) Father Family Member Ethnicity: Non- Living Status: Brother Family Member Ethnicity: Non- Living Status: Hx Family Cardiac Disorders: Yes ([place]) Sister Family Member Ethnicity: Non- Living Status: Hx Family Cardiac Disorders: Yes ([place], CAD) Medications and Allergies Acetaminophen [Tylenol] 650 mg PO Q4H PRN 08/01/17 [History] Aspirin [Lo-Dose Aspirin EC] 81 mg PO HS 08/01/17 [History] BuPROPion SR (12 HR) [Wellbutrin SR] 100 mg PO BID 08/01/17 [History] Calcitriol [Rocaltrol] 0.25 mcg PO DAILY 08/01/17 [History] Cholecalciferol (D-3) [Vitamin D] 1,000 unit PO DAILY 08/01/17 [History] FLUoxetine HCl [Prozac] 80 mg PO DAILY 08/01/17 [History] Ferrous Sulfate [Iron] 325 mg PO HS 08/01/17 [History] Furosemide [Lasix] 20 mg PO MOWEFR 08/01/17 [History] Lovastatin 40 mg PO HS 08/01/17 [History] Mag Hydrox/Al Hydrox/Simeth [Antacid Suspension] 30 ml PO DAILY PRN 08/01/17 [ History] Magnesium Hydroxide [Milk of Magnesia] 30 ml PO DAILY PRN 08/01/17 [History] Nystatin POWDER [Nystop] 1 appl TP TID 08/01/17 [History] Ondansetron [Zofran ODT] 8 mg SL Q8H PRN 08/01/17 [History] Propranolol LA (24 HR) [Inderal LA] 60 mg PO DAILY 08/01/17 [History] Sennosides [Senna] 2 tab PO DAILY PRN 08/01/17 [History] predniSONE [PredniSONE] 3 mg PO DAILY 08/01/17 [History] amLODIPine [Norvasc] 10 mg PO DAILY tablet 08/06/17 [Rx] Insulin ASPART [NovoLOG] 0 - 12 unit SQ QID 10/17/17 [History] Insulin Glargine,Hum.rec.anlog [Lantus Solostar] 4 unit SQ 199910/17/17 [ History] Albuterol Neb [Proventil Neb] 2.5 mg IH [id number] PRN inhsol 10/25/17 [Rx] Lisinopril [Zestril] 2.5 mg PO DAILY tablet 10/25/17 [Rx] Tramadol HCl [Ultram] 50 mg PO BID PRN 3 Days #15 tab 10/25/17 [Rx] Loperamide [Imodium] 2 mg PO QID PRN MDD 8MG PER 24 HOURS 11/27/17 [History] 3 Allergy/AdvReac Type Severity Reaction Status Date / Time No Known Allergies Allergy Verified 11/27/17 08:55 Review of Systems ROS unobtainable: other (Patient is a poor historian, information in the HPI was obtained from the medical record) All systems PM: The remainder of the systems were reviewed and are negative General Surgery Exam Initial Vital Signs Temp Pulse Resp BP Pulse Ox 97.6 F 84 20 94/61 96 11/26/17 21:15 11/26/17 21:15 11/26/17 21:15 11/26/17 21:15 11/26/17 21:15 - General physical appearance moderate distress, moderate pain, chronically ill - Eyes PERRL - ENT dry mucosa, atraumatic, normocephalic - Neck trachea midline - Respiratory normal respiratory effort, clear to auscultation, other (diminished bibasilar bases) - Cardiovascular Cardiovascular exam: Present: irregular rhythm - Abdomen Abdomen general surgery: Present: soft, tender, wound (NG tube to LIWS with scant amount of bilious drainage noted) Abdominal Tenderness: Present: diffusely Hernia: Present: incarcerated, umbilical - Integumentary Integumentary general surgery: Present: warm and dry - Psychiatric Psychiatric general surgery: Present: oriented to person, oriented to place Exam Initial Vital Signs Temp Pulse Resp BP Pulse Ox 97.6 F 84 20 94/61 96 11/26/17 21:15 11/26/17 21:15 11/26/17 21:15 11/26/17 21:15 11/26/17 21:15 Results - Labs 11/27/17 14:44 11/27/17 14:44 Abnormal lab results WBC 87.8 K/mcL (4.3-11.1) H* D 11/27/17 14:44 RDW 15.2 % (11.5-14.5) H 11/27/17 14:44 MPV 12.6 fL (9.4-12.4) H 11/27/17 14:44 Band Neutrophils % 10.0 % (0-4) H 11/27/17 05:37 Metamyelocytes % 1.0 % (0) H 11/27/17 05:37 Neutrophils # 51.7 K/mcL (1.6-8.9) H 11/27/17 05:37 Monocytes # 3.5 K/mcL (0.0-1.3) H 11/27/17 05:37 Nucleated RBCs/100 WBC 0.5 /100 WBC (0) H 11/27/17 14:44 Smudge Cells Present (Not Present) A 11/26/17 22:15 Toxic Granulation Present (Not Present) A 11/27/17 05:37 Large Platelets Present (Not Present) A 11/26/17 22:15 Polychromasia 1+ (Not Present) A 11/26/17 22:15 PT 12.2 Seconds (9.4-12.1) H 11/27/17 09:05 Sodium 130 mEq/L (136-145) L 11/27/17 14:44 Carbon Dioxide 16 mEq/L (23-29) L 11/27/17 14:44 BUN 67 mg/dL (8-23) H 11/27/17 14:44 Creatinine 3.39 mg/dL (0.60-1.20) H 11/27/17 14:44 Est GFR ( Amer) 16 (> 60) L 11/27/17 14:44 Est GFR (Non-Af Amer) 13 (> 60) L 11/27/17 14:44 Glucose 231 mg/dL (70-105) H 11/27/17 14:44 POC Glucose 157 mg/dL (70-99) H 11/27/17 06:44 Lactic Acid 2.9 mmol/L (0.5-2.2) H 11/27/17 14:40 Calcium 7.9 mg/dL (8.6-10.3) L 11/27/17 14:44 Direct Bilirubin 0.3 mg/dL (0.0-0.2) H 11/26/17 22:15 AST 40 Units/L (13-39) H 11/27/17 05:37 ALT 65 Units/L (7-52) H 11/27/17 05:37 Serum Total Protein 4.4 g/dL (6.4-8.9) L 11/27/17 05:37 Albumin 2.2 g/dL (3.5-5.7) L 11/27/17 05:37 Globulin 2.2 g/dL (2.4-3.5) L 11/27/17 05:37 Albumin/Globulin Ratio 1.0 (1.1-2.2) L 11/27/17 05:37 Lipase 4 Units/L (11-82) L 11/26/17 22:15 Urine Clarity Turbid (Clear) A 11/26/17 23:45 Urine Blood Small (Negative) H 11/26/17 23:45 Urine Bilirubin Small (Negative) H 11/26/17 23:45 Ur Leukocyte Esterase Large (Negative) H 11/26/17 23:45 Urine Microscopic WBC TNTC per hpf (0-3) H 11/26/17 23:45 Ur Squamous Epith Cells Many per lpf (None-Few) H 11/26/17 23:45 Urine Bacteria Many per hpf (None-Few) H 11/26/17 23:45 Ur Culture Indicated? NO. (NO) A 11/26/17 23:45 Acetaminophen < 10 mcg/mL (10-20) L 11/27/17 09:05 Diabetes panel 11/27/17 11/27/17 Range/Units 05:37 14:44 Sodium 131 L 130 L (136-145) mEq/L Potassium 4.4 5.0 (3.5-5.1) mEq/L Chloride 101 100 (98-107) mEq/L Carbon Dioxide 19 L 16 L (23-29) mEq/L BUN 60 H 67 H (8-23) mg/dL Creatinine 3.17 H 3.39 H (0.60-1.20) mg/dL Glucose 174 H 231 H (70-105) mg/dL Calcium 7.7 L 7.9 L (8.6-10.3) mg/dL AST 40 H (13-39) Units/L ALT 65 H (7-52) Units/L Alkaline Phosphatase 91 (34-104) Units/L Albumin 2.2 L (3.5-5.7) g/dL Calcium panel 11/27/17 11/27/17 Range/Units 05:37 14:44 Calcium 7.7 L 7.9 L (8.6-10.3) mg/dL Albumin 2.2 L (3.5-5.7) g/dL Pituitary panel 11/27/17 11/27/17 Range/Units 05:37 14:44 Sodium 131 L 130 L (136-145) mEq/L Potassium 4.4 5.0 (3.5-5.1) mEq/L Chloride 101 100 (98-107) mEq/L Carbon Dioxide 19 L 16 L (23-29) mEq/L BUN 60 H 67 H (8-23) mg/dL Creatinine 3.17 H 3.39 H (0.60-1.20) mg/dL Glucose 174 H 231 H (70-105) mg/dL Calcium 7.7 L 7.9 L (8.6-10.3) mg/dL Adrenal panel 11/27/17 11/27/17 Range/Units 05:37 14:44 Sodium 131 L 130 L (136-145) mEq/L Potassium 4.4 5.0 (3.5-5.1) mEq/L Chloride 101 100 (98-107) mEq/L Carbon Dioxide 19 L 16 L (23-29) mEq/L BUN 60 H 67 H (8-23) mg/dL Creatinine 3.17 H 3.39 H (0.60-1.20) mg/dL Glucose 174 H 231 H (70-105) mg/dL Calcium 7.7 L 7.9 L (8.6-10.3) mg/dL Total Bilirubin 0.5 (0.3-1.0) mg/dL AST 40 H (13-39) Units/L ALT 65 H (7-52) Units/L Alkaline Phosphatase 91 (34-104) Units/L Albumin 2.2 L (3.5-5.7) g/dL All other labs normal. - Imaging CT scan - abdomen: report reviewed CT scan - pelvis: report reviewed Additional studies: Abdomen/Pelvis CT 11/26/17 23:09 IMPRESSION: Interval development of diffuse colonic wall thickening with surrounding infiltration and traces of free fluid most compatible with colitis. Appearance highly suggestive of pseudomembranous colitis. Fat containing umbilical hernia. Several scattered 5 mm or less in size nodules as seen previously. 12 month follow-up if high risk for lung cancer otherwise no follow-up. D/ / Marlon Cooney MD / Marlon Cooney MD Interpreting Provider: Marlon Cooney MD X-Ray 11/27/17 07:46 IMPRESSION: 1. Nonobstructive bowel gas pattern. 2. Thick walled bowel loops in the left abdomen, similar to yesterday's CT exam, related to the patient's colitis. As previously stated, C. difficile colitis is a consideration. D/ / José Manuel Matamoros MD / José Manuel Matamoros MD Interpreting Provider: José Manuel Matamoros MD Chest X-Ray 11/27/17 07:55 IMPRESSION: No evidence for acute cardiopulmonary process. Enteric tube present, coiled in the proximal stomach with tip likely in the fundus/cardia of the stomach and directed towards the gastroesophageal junction. Side port not well identified. D/ / 11/27/2017 09:00:19 Madhu Guerrero MD / ana Interpreting Provider: Madhu Guerrero MD Consult Discharge Plan - Plan Referrals: NONE,PCP [Primary Care Provider] - - Attending Attestation For this encounter, I have reviewed the HARDWARE ASSEMBLER or PA documentation, treatment plan, and medical decision making; and I have had face to face time with this patient.
[2017-11-27 16:26] LABS: Toxic Granulation Present (Not Present)
--- NOTE | 2017-11-27 16:34 | Internal Med Progress Note ---
<Isaias Berrios - Last Filed: 11/27/17 16:35> Hospitalist Progress Note - Encounter Date of Encounter: 11/27/17 Time of Encounter: 16:30 - Subjective Interval History: Patient seen and examined this morning She complains of continued abdominal pain, nausea, vomiting, diarrhea I discussed with her the plan of care for continued antibiotic and supportive therapy I discussed the possibility of surgical intervention if her infection did not respond to antimicrobials - Exam Vitals: Temp Pulse Resp BP Pulse Ox 98.7 F 95 22 103/89 99 11/27/17 11:00 11/27/17 15:10 11/27/17 14:00 11/27/17 14:00 11/27/17 14:00 Exam: Patient in mild distress, alert and oriented to person and situation Heart in regular rate and rhythm Lungs clear to auscultation Abdomen soft and obese, distended, diffusely tender to palpation., Bowel sounds hyperactive Skin warm and dry, legs nonedematous capillary refill within normal range - Assessment and Plan (1) Severe sepsis Current Visit: Yes Status: Acute Assessment and Plan: The patient has two SIRS criteria plus CLAU and lactic acidosis. Likely secondary to C. diff colitis and possible UTI. White count continues to worsen however vitals are stable Lactic acid elevated at 2.5, repeat elevated to 2.9 Blood cultures ordered by infectious disease. 500ml bolus lactated ringers given MIVF lactated ringers 125ml/hr for 2,000ml started (2) Clostridium difficile colitis Current Visit: Yes Status: Acute Assessment and Plan: Previously diagnosed 10/19/17 and treated with 10 day course of PO Vancomycin. CT of the abdomen and pelvis show findings consistent with colitis. No toxic megacolon or perforation noted. ID recommends continue Vancomycin 500mg PO QID, continue Flagyl 500mg IV TID, likely 14 days General surgery consulted, they are following closely and are in close communication with nursing (3) UTI (urinary tract infection) Current Visit: Yes Status: Acute Assessment and Plan: Received Rocephin x 1 in the ER. ID recommends start Rocephin 2 gram IV daily for now until blood cultures return. (4) Dlftu-er-ojpwkic kidney injury Current Visit: Yes Status: Acute Assessment and Plan: We will avoid nephrotoxins and will renally dose medications Maintenance IVF started Will monitor renal function and consult nephrology if renal function worsens (5) Elevated troponin Current Visit: Yes Status: Acute Assessment and Plan: Troponins originally increased to 0.4 now decreased to 0.3 Likely secondary to ischemic demand from infection Patient is not currently having chest pain or cardiac symptoms We will continue to monitor closely (6) Hyponatremia Current Visit: Yes Status: Acute Assessment and Plan: Sodium improved to 130 since admission value 129 We are giving lactated ringers maintenance fluids Sodium should correct gradually Will monitor with repeat labs (7) Lactic acidosis Current Visit: Yes Status: Acute Assessment and Plan: Lactic acidosis increased to 2.9 from 2.5 today We have initiated IVF will recheck lactic acid tomorrow (8) COPD (chronic obstructive pulmonary disease) Current Visit: No Status: Chronic Assessment and Plan: Patient is not currently in respiratory distress, does not complain of shortness of breath She uses CPAP and nebulizers at home for Asthma She is ordered CPAP QHS here (9) Diabetes Current Visit: No Status: Chronic Assessment and Plan: Patient receiving low dose sliding scale insulin glucose stable, we will continue to monitor DVT Prophylaxis: Patient receiving subq heparin 5000 Q8H - Time Spent with Patient Total time spent is greater than 50% in coordination of care (as documented) at patient's floor/unit and/or counseling patient: Internal Medicine: Result - Labs CBC & Chem 7: 11/27/17 14:44 11/27/17 14:44 Labs: Short CBC 11/27/17 11/27/17 Range/Units 05:37 14:44 WBC 58.1 H* 87.8 H* D (4.3-11.1) K/mcL Hgb 11.2 L D 14.0 D (11.5-15.4) g/dL Hct 35.7 44.3 (35.3-44.9) % Plt Count 175 224 (140-400) K/mcL Neutrophils # 51.7 H 73.5 H (1.6-8.9) K/mcL BMP 11/27/17 11/27/17 05:37 14:44 Sodium 131 L 130 L Potassium 4.4 5.0 Chloride 101 100 Carbon Dioxide 19 L 16 L BUN 60 H 67 H Creatinine 3.17 H 3.39 H Glucose 174 H 231 H Calcium 7.7 L 7.9 L Cardiac Enzymes 09/05/18 09/05/18 Range/Units 05:37 09:05 Troponin I 0.03 0.03 (< 0.04) ng/mL Liver Function 11/27/17 Range/Units 05:37 Total Bilirubin 0.5 (0.3-1.0) mg/dL AST 40 H (13-39) Units/L ALT 65 H (7-52) Units/L Alkaline Phosphatase 91 (34-104) Units/L Albumin 2.2 L (3.5-5.7) g/dL - ABG Interpretation ABG results: PT/INR, D-dimer PT 12.2 Seconds (9.4-12.1) H 11/27/17 09:05 - Impressions Impressions KUB X-Ray 11/27/17 07:46 IMPRESSION: 1. Nonobstructive bowel gas pattern. 2. Thick walled bowel loops in the left abdomen, similar to yesterday's CT exam, related to the patient's colitis. As previously stated, C. difficile colitis is a consideration. D/ / José Manuel Matamoros MD / José Manuel Matamoros MD Interpreting Provider: José Manuel Matamoros MD Chest X-Ray 11/27/17 07:55 IMPRESSION: No evidence for acute cardiopulmonary process. Enteric tube present, coiled in the proximal stomach with tip likely in the fundus/cardia of the stomach and directed towards the gastroesophageal junction. Side port not well identified. D/ / 11/27/2017 09:00:19 Mad[facility] Guerrero [facility] Inter[facility]ting Provider: Madhu Guerrero MD Consult Discharge Plan - Plan Referrals: NONE,PCP [Primary Care Provider] - <Cally Ramirez - Last Filed: 11/27/17 18:29> Hospitalist Progress Note - Encounter Date of Encounter: 11/27/17 - Exam Vitals: Temp Pulse Resp BP Pulse Ox 97.7 F 92 20 89/63 96 11/27/17 15:00 11/27/17 18:00 11/27/17 18:00 11/27/17 18:00 11/27/17 18:00 - Assessment and Plan (1) Diabetes Current Visit: No Status: Chronic (2) COPD (chronic obstructive pulmonary disease) Current Visit: No Status: Chronic (3) Leukocytosis Current Visit: No Status: Acute (4) Clostridium difficile colitis Current Visit: Yes Status: Acute (5) Abdominal pain Current Visit: Yes Status: Acute (6) UTI (urinary tract infection) Current Visit: Yes Status: Acute (7) Hyponatremia Current Visit: Yes Status: Acute (8) Elevated troponin Current Visit: Yes Status: Acute (9) Xqbie-bv-ahrxtyo kidney injury Current Visit: Yes Status: Acute - Time Spent with Patient Total time spent is greater than 50% in coordination of care (as documented) at patient's floor/unit and/or counseling patient: Internal Medicine: Result - Labs CBC & Chem 7: 11/27/17 14:44 11/27/17 14:44 Labs: Short CBC 11/27/17 11/27/17 Range/Units 05:37 14:44 WBC 58.1 H* 87.8 H* D (4.3-11.1) K/mcL Hgb 11.2 L D 14.0 D (11.5-15.4) g/dL Hct 35.7 44.3 (35.3-44.9) % Plt Count 175 224 (140-400) K/mcL Neutrophils # 51.7 H 73.5 H (1.6-8.9) K/mcL BMP 11/27/17 11/27/17 05:37 14:44 Sodium 131 L 130 L Potassium 4.4 5.0 Chloride 101 100 Carbon Dioxide 19 L 16 L BUN 60 H 67 H Creatinine 3.17 H 3.39 H Glucose 174 H 231 H Calcium 7.7 L 7.9 L Cardiac Enzymes 11/27/17 11/27/17 Range/Units 05:37 09:05 Troponin I 0.03 0.03 (< 0.04) ng/mL Liver Function 11/27/17 Range/Units 05:37 Total Bilirubin 0.5 (0.3-1.0) mg/dL AST 40 H (13-39) Units/L ALT 65 H (7-52) Units/L Alkaline Phosphatase 91 (34-104) Units/L Albumin 2.2 L (3.5-5.7) g/dL - ABG Interpretation ABG results: PT/INR, D-dimer PT 12.2 Seconds (9.4-12.1) H 11/27/17 09:05 - Impressions Impressions KUB X-Ray 11/27/17 07:46 IMPRESSION: 1. Nonobstructive bowel gas pattern. 2. Thick walled bowel loops in the left abdomen, similar to yesterday's CT exam, related to the patient's colitis. As previously stated, C. difficile colitis is a consideration. D/ / José Manuel Matamoros MD / José Manuel Matamoros MD Interpreting Provider: José Manuel Matamoros MD Chest X-Ray 11/27/17 07:55 IMPRESSION: No evidence for acute cardiopulmonary process. Enteric tube present, coiled in the proximal stomach with tip likely in the fundus/cardia of the stomach and directed towards the gastroesophageal junction. Side port not well identified. D/ / 11/27/2017 09:00:19 Madhu Guerrero MD / [facility] Interpreting Provider: Madhu Guerrero MD Chest X-Ray 11/27/17 16:36 IMPRESSION: Right internal jugular central venous catheter placement with the tip at the level of the mid SVC. D/ / 11/27/2017 17:05:45 José Manuel Doan MD / [facility] Interpreting Provider: José Manuel Doan MD - Attending Attestation I examined this patient and my medical decision-making was reviewed with the Resident Physician Dr. Berrios. I agree with the documented findings, disposition and treatment plan as described except to the extent set forth below. Ms. Davis is a 76 y/o F who recently treated for C. Diff as an out pt a month ago now she presented to ER with 3 days h/o worsening abd pain and diarrhea. Her CT of abd showed diffuse colitis and high suspicious for pseudomembranous colitis. Pt still c/o moderate to severe abd pain. Gen: A, A, O x 3.. Moderate distress Abd: Soft, Lower abd tenderness Heart: S1S2+ RRR No murmurs a/p 1. Severe sepsis 2. Acute C. Diff colitis 3. Intractable abd pain Lactic acid still worsening aggressive IV hydration PO Vancomycin ID and Surgery on board [employer] Associate recommendations 4. CLAU Worsening Cont IV hydration <Isaias Berrios - Last Filed: 11/27/17 16:35> (3) UTI (urinary tract infection) Qualifiers: Urinary tract infection type: site unspecified Hematuria presence: without hematuria Qualified Code(s): N39.0 - Urinary tract infection, site not specified (4) Fkrtb-dl-dzokmvz kidney injury Qualifiers: Acute renal failure type: unspecified Chronic kidney disease stage: unspecified stage Qualified Code(s): N17.9 - Acute kidney failure, unspecified ; N18.9 - Chronic kidney disease, unspecified (8) COPD (chronic obstructive pulmonary disease) Qualifiers: COPD type: unspecified COPD Qualified Code(s): J44.9 - Chronic obstructive pulmonary disease, unspecified (9) Diabetes Qualifiers: Diabetes mellitus type: type 2 Diabetes mellitus fdc insulin use: with fdc use Diabetes mellitus complication status: without complication Qualified Code(s): E11.9 - Type 2 diabetes mellitus without complications; 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 <Cally Ramirez - Last Filed: 11/27/17 18:29> (1) Diabetes Qualifiers: Diabetes mellitus type: type 2 Diabetes mellitus fdc insulin use: with fdc use Diabetes mellitus complication status: without complication Qualified Code(s): E11.9 - Type 2 diabetes mellitus without complications; 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 (2) COPD (chronic obstructive pulmonary disease) Qualifiers: COPD type: unspecified COPD Qualified Code(s): J44.9 - Chronic obstructive pulmonary disease, unspecified (3) Leukocytosis Qualifiers: Leukocytosis type: unspecified Qualified Code(s): D72.829 - Elevated white blood cell count, unspecified (5) Abdominal pain Qualifiers: Abdominal location: generalized Qualified Code(s): R10.84 - Generalized abdominal pain (6) UTI (urinary tract infection) Qualifiers: Urinary tract infection type: site unspecified Hematuria presence: without hematuria Qualified Code(s): N39.0 - Urinary tract infection, site not specified (9) Omghs-zp-ryriiog kidney injury Qualifiers: Acute renal failure type: unspecified Chronic kidney disease stage: unspecified stage Qualified Code(s): N17.9 - Acute kidney failure, unspecified ; N18.9 - Chronic kidney disease, unspecified
[2017-11-27] MEDS ORDERED: Ringers Solution, Lactated 1,000 ML IVC SCH (17:15)
--- NOTE | 2017-11-27 17:33 | Procedure Note ---
<Virgie Roman - Last Filed: 11/27/17 17:30> Date of procedure: 11/27/17 Pre-op diagnosis: hypotension, septic shock Post-op diagnosis: same Procedure: Central Venous Catheter (CVC, Central Line) Placement A time-out was completed verifying correct patient, procedure, site, positioning , and special equipment if applicable. The patient was placed in a dependent position appropriate for central line placement based on the vein to be cannulated. The patients right neck was prepped and draped in sterile fashion. 1 % Lidocaine was used to anesthetize the surrounding skin area. A triple lumen catheter was introduced into the the internal jugular vein using the Seldinger technique and under ultrasound guidance. The catheter was threaded smoothly over the guide wire and appropriate blood return was obtained. Each lumen of the catheter was evacuated of air and flushed with sterile saline. The catheter was then sutured in place to the skin and a sterile dressing applied. Perfusion to the extremity distal to the point of catheter insertion was checked and found to be adequate. Dr. Duvall was present for the entire procedure. Estimated Blood Loss: 2cc The patient tolerated the procedure well and there were no complications. Chest X-Ray 11/27/17 16:36 IMPRESSION: Right internal jugular central venous catheter placement with the tip at the level of the mid SVC. D/ / 11/27/2017 17:05:45 Anesthesia: local Surgeon: Virgie Roman Was there an phlebotomist lab assistant present: Yes Masseur/Masseuse: Bjorn Gonsales Estimated blood loss (cc): 2 IV fluids (cc): 1,000 (LR) Specimen: None Pathology: none sent Condition: critical Disposition: ICU <Naldo Duvall - Last Filed: 11/28/17 06:36> - Attending Attestation I was present and supervised the entire procedure that was performed by the resident physician
[2017-11-27] MEDS ORDERED: Norepinephrine 4 MG in D5% in Water 250 ML IVC SCH (17:45)
[2017-11-27 19:12] LABS: Troponin I 0.05 ng/mL (< 0.04)
[2017-11-27 20:55] VITALS: BP 88/77
[2017-11-27] MEDS ORDERED: Aspirin Enteric Coated 81 MG Tablet PO SCH (21:00)
[2017-11-27] MEDS ORDERED: *HR* Atropine Sulfate 1 MG/10 ML SYRINGE ONE (22:03)
[2017-11-27] MEDS ORDERED: D5% in Water 500 ML ONE (22:41)
[2017-11-27] MEDS ORDERED: *HR* Phenylephrine 10 MG/ML VIAL ONE (22:41)
[2017-11-27 22:45] LABS: ABG Base Excess -13 mEq/L (-2 to 3); ABG HCO3 16 mEq/L (21-27); ABG Oxygen Saturation 100 % (95-98); ABG PCO2 43 mmHg (35-45); ABG PH 7.17 pH Units (7.32-7.45); ABG PO2 354 mmHg (85-104); ABG TCO2 17 mEq/L (20-26)
[2017-11-27 22:47] LABS: Basophils % 0.3 %; Eosinophils % 0.2 %
[2017-11-27 22:49] LABS: Basophils # 0.3 K/mcL (0.0-0.2); Eosinophils # 0.2 K/mcL (0.0-0.6); Hematocrit 37.9 % (35.3-44.9); Hemoglobin 11.6 g/dL (11.5-15.4); Heparin anti-factor XA UFH 0.01 IU/mL (0.30-0.70); Immature Granulocytes % 15.3 % (0-4); Lymphocytes # 7.7 K/mcL (0.6-4.6); Lymphocytes % 7.3 %; Mean Corpuscular HGB Conc 30.6 g/dL (31.6-35.5); Mean Corpuscular Hemoglobin 30.3 pg (28.0-33.3); Mean Platelet Volume 12.5 fL (9.4-12.4); Monocytes # 8.1 K/mcL (0.0-1.3); Monocytes % 7.7 %; Neutrophils # 73.1 K/mcL (1.6-8.9); Nucleated Red Blood Cells 1.4 /100 WBC (0); Platelet Count 173 K/mcL (140-400); Red Blood Count 3.83 M/mcL (3.82-4.97); Red Cell Distribution Width 15.6 % (11.5-14.5); Segmented Neutrophils % 69.2 %
[2017-11-27 22:51] LABS: Activated Partial Thrombo Time 42.9 Seconds (26.0-36.0)
[2017-11-27 23:00] LABS: ABG Base Excess -9 mEq/L (-2 to 3); ABG HCO3 23 mEq/L (21-27); ABG Oxygen Saturation 53 % (95-98); ABG PCO2 88 mmHg (35-45); ABG PH 7.02 pH Units (7.32-7.45); ABG PO2 43 mmHg (85-104); ABG TCO2 26 mEq/L (20-26)
[2017-11-27 23:04] LABS: INR 1.4; Prothrombin Time 15.8 Seconds (9.4-12.1)
[2017-11-27 23:11] LABS: Reactive Lymphocytes Present (Not Present)
[2017-11-27 23:12] LABS: Toxic Granulation Present (Not Present)
--- NOTE | 2017-11-27 23:25 | Event Note ---
Date of Encounter: 11/27/17 Time of Encounter: 22:07 I was called to bedside emergently by patient's nurse for concerns of dropping blood pressure and bradycardia. I arrived shortly after initial request from RN. Upon my assessment of the patient, she was bradycardic, hypotensive, and she just started developing agonal respirations at that point. Prior to my arrival, RN stated patient was breathing normally and was alert and attentive. However, she was unresponsive at the time I saw her and had developed agonal respirations. I therefore called [facility] at that time. We started performing bag mask ventilation on patient. She still had a pulse at that time and we administered atropine per ACLS protocol. Several minutes later, patient lost her pulse and we started resuscitation by chest compressions and ACLS protocol. Family was called and arrived at the hospital shortly after resuscitation was initiated. Patient developed return of spontaneous circulation after two resuscitative attempts. However, after her second resuscitation episode, she lost her pulse again and developed asystole. We resumed resuscitation again at the family's request. During the third resuscitation attempt, I had a detailed discussion with patient's daughter and family regarding the patient's critical situation and poor prognosis. She discussed with her brother on the phone, and they agreed to stop resuscitation once all exhaustive measures were performed. After the third resuscitation attempt, she continued to have asystole and no pulse despite several rounds of chest compressions and medications. At that point, daughter was present at bedside and she agreed that we should terminate resuscitative attempts at that point. Patient underwent a prolonged resuscitation and all medications were exhausted at our disposal, as well as chest compressions, respiratory support, and pharmacy support. Time of : 22:58 on 11/27/2017 I met with daughter and family after pronouncement of and answered all questions to the best of my ability.
[2017-11-28] MEDS ORDERED: cefTRIAXone 2,000 MG in Water for inj. (sterile) 20 ML 20 ML IVP SCH (09:00)
--- NOTE | 2017-11-30 12:37 | Electrocardiograph Report ---
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
--- NOTE | 2017-11-30 15:03 | Electrocardiograph Report ---
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
--- NOTE | 2017-11-30 15:09 | Electrocardiograph Report ---
[address] [place] [address] Test Date: 2017-11-27 Pat Name: Rosa Davis Department: 112 Room: [facility] Gender: F Costume Draper: COMFORT : 1940 Requested By: Hai Anne Order Number: [id number] Reading MD: Jo Mack Measurements Intervals [place] Rate: 51 P: OR: 0 QRS: 244 QRSD: 169 T: 62 QT: 447 QTc: 425 Interpretive Statements ATRIAL FIBRILLATION WITH SLOW VENTRICULAR RESPONSE MARKED RIGHT AXIS DEVIATION RIGHT BUNDLE BRANCH BLOCK POSSIBLE ANTERIOR MYOCARDIAL INFARCTION, OF INDETERMINATE AGE INFERIOR MYOCARDIAL INFARCTION, OF INDETERMINATE AGE Electronically Signed On 11-30-2017 15:07:44 EDT by Jo Mack
--- NOTE | 2017-12-10 15:00 | Emergency Department Note ---
Disposition Clinical Impression: C. difficile colitis Abdominal pain Qualifiers: Abdominal location: generalized Qualified Code(s): R10.84 - Generalized abdominal pain UTI (urinary tract infection) Qualifiers: Urinary tract infection type: site unspecified Hematuria presence: without hematuria Qualified Code(s): N39.0 - Urinary tract infection, site not specified Disposition: Admitted As Inpatient General Adult HPI - General Chief complaint: ED Weakness Stated complaint: WEAKNESS, ABD PAIN, DIFF SWALLOWING Time Seen by Provider: 11/26/17 21:46 Source: patient, EMS Mode of arrival: EMS Limitations: no limitations - History of Present Illness Location: abdomen Pain Scale: 5 Quality: other (crampy) Improves with: nothing Worsens with: nothing Associated symptoms: Reports: cough, loss of appetite, nausea/vomiting, shortness of breath, weakness. Denies: fever/chills Treatments Prior to Arrival: none - Related Data Home Medications Medication Instructions Recorded Confirmed Acetaminophen [Tylenol] 650 mg PO Q4H PRN 08/01/17 11/27/17 Aspirin [Lo-Dose Aspirin EC] 81 mg PO HS 08/01/17 11/27/17 BuPROPion SR (12 HR) [Wellbutrin 100 mg PO BID 08/01/17 11/27/17 SR] Calcitriol [Rocaltrol] 0.25 mcg PO DAILY 08/01/17 11/27/17 Cholecalciferol (D-3) [Vitamin D] 1,000 unit PO DAILY 08/01/17 11/27/17 FLUoxetine HCl [Prozac] 80 mg PO DAILY 08/01/17 11/27/17 Ferrous Sulfate [Iron] 325 mg PO HS 08/01/17 11/27/17 Furosemide [Lasix] 20 mg PO MOWEFR 08/01/17 11/27/17 Lovastatin 40 mg PO HS 08/01/17 11/27/17 Mag Hydrox/Al Hydrox/Simeth 30 ml PO DAILY PRN 08/01/17 11/27/17 [Antacid Suspension] Magnesium Hydroxide [Milk of 30 ml PO DAILY PRN 08/01/17 11/27/17 Magnesia] Nystatin POWDER [Nystop] 1 appl TP TID 08/01/17 11/27/17 Ondansetron [Zofran ODT] 8 mg SL Q8H PRN 08/01/17 11/27/17 Propranolol LA (24 HR) [Inderal LA] 60 mg PO DAILY 08/01/17 11/27/17 Sennosides [Senna] 2 tab PO DAILY PRN 08/01/17 11/27/17 predniSONE [PredniSONE] 3 mg PO DAILY 08/01/17 11/27/17 Insulin ASPART [NovoLOG] 0 - 12 unit SQ QID 10/17/17 11/27/17 Insulin Glargine,Hum.rec.anlog 4 unit SQ 199910/17/17 11/27/17 [Lantus Solostar] Loperamide [Imodium] 2 mg PO QID PRN MDD 8MG PER 11/27/17 11/27/17 HOURS Previous Rx's Medication Instructions Recorded amLODIPine [Norvasc] 10 mg PO DAILY tablet 08/06/17 Albuterol Neb [Proventil Neb] 2.5 mg IH [id number] PRN inhsol 10/25/17 Lisinopril [Zestril] 2.5 mg PO DAILY tablet 10/25/17 Tramadol HCl [Ultram] 50 mg PO BID PRN 3 Days #15 tab 10/25/17 Allergies Allergy/AdvReac Type Severity Reaction Status Date / Time No Known Allergies Allergy Verified 11/27/17 08:55 Constitutional: Reports: weakness. Denies: fever, chills Cardiovascular: Reports: dyspnea on exertion. Denies: chest pain, palpitations Respiratory: Reports: cough, dyspnea. Denies: wheezes, hemoptysis, sputum production Gastrointestinal: Reports: abdominal pain, nausea, vomiting, diarrhea. Denies: constipation, hematemesis, melena, hematochezia Genitourinary: Denies: urgency, dysuria Neurological: Reports: weakness. Denies: headache, numbness, paresthesias, confusion Endocrine: Reports: fatigue Past Medical History - Past Medical History Medical history: Reports: diabetes, hyperlipidemia, hypertension, osteoporosis, COPD Surgical history: Reports: cholecystectomy Psychiatric history: Reports: anxiety, depression - Social History Smoking Status: Never smoker Smokeless Tobacco Status: No Alcohol use: Reports: none Drug use: Reports: none Physical Exam - General Limitations: no limitations General appearance: alert Course Vital Signs Temperature 97.6 F 11/26/17 21:15 Pulse Rate 84 11/26/17 21:15 Respiratory Rate 20 11/26/17 21:15 Blood Pressure 94/61 11/26/17 21:15 O2 Sat by Pulse Oximetry 96 11/26/17 21:15 Temperature 97.3 F L 11/27/17 19:00 Pulse Rate 93 11/27/17 21:01 Respiratory Rate 16 11/27/17 21:01 Blood Pressure 88/77 11/27/17 21:01 O2 Sat by Pulse Oximetry 100 11/27/17 23:54 Oxygen Delivery Oxygen Delivery Room Air Medical Decision Making - Lab Data Result diagrams: 11/27/17 20:21 11/27/17 14:44 Lab Results 11/26/17 11/26/17 11/26/17 Range/Units 22:15 22:15 23:45 WBC 55.6 H* (4.3-11.1) K/mcL RBC 4.08 (3.82-4.97) M/mcL Hgb 12.7 (11.5-15.4) g/dL Hct 39.5 (35.3-44.9) % MCV 96.8 (83.0-100.0) fL MCH 31.1 (28.0-33.3) pg MCHC 32.2 (31.6-35.5) g/dL RDW 14.9 H (11.5-14.5) % Plt Count 172 (140-400) K/mcL MPV 12.6 H (9.4-12.4) fL Seg Neutrophils % 72.0 % Band Neutrophils % 16.0 H (0-4) % Lymphocytes % 0.0 % Monocytes % 12.0 % Neutrophils # 48.9 H (1.6-8.9) K/mcL Lymphocytes # 0.0 L (0.6-4.6) K/mcL Monocytes # 6.7 H (0.0-1.3) K/mcL Nucleated RBCs/100 WBC 0.2 H (0) /100 WBC Smudge Cells Present A (Not Present) Toxic Granulation Present A (Not Present) Platelet Estimate Normal (Normal) Clumped Platelets (Not Present) Large Platelets Present A (Not Present) Polychromasia 1+ A (Not Present) Sodium 129 L (136-145) mEq/L Potassium 4.5 (3.5-5.1) mEq/L Chloride 96 L (98-107) mEq/L Carbon Dioxide 21 L (23-29) mEq/L BUN 57 H (8-23) mg/dL Creatinine 3.04 H (0.60-1.20) mg/dL Est GFR ( Amer) 18 L (> 60) Est GFR (Non-Af Amer) 15 L (> 60) BUN/Creatinine Ratio 19 (6-26) Glucose 166 H (70-105) mg/dL Calculated Osmolality 288 (280-300) Lactic Acid (0.5-2.2) mmol/L Calcium 8.6 (8.6-10.3) mg/dL Total Bilirubin 0.9 (0.3-1.0) mg/dL Direct Bilirubin 0.3 H (0.0-0.2) mg/dL Indirect Bilirubin 0.6 (0.0-1.2) mg/dL AST 44 H (13-39) Units/L ALT 71 H (7-52) Units/L Alkaline Phosphatase 95 (34-104) Units/L Troponin I 0.04 H* (< 0.04) ng/mL Serum Total Protein 5.1 L (6.4-8.9) g/dL Albumin 2.5 L (3.5-5.7) g/dL Globulin 2.6 (2.4-3.5) g/dL Albumin/Globulin Ratio 1.0 L (1.1-2.2) Lipase 4 L (11-82) Units/L Urine Color Dark Yellow (Yellow) Urine Clarity Turbid A (Clear) Urine pH 5.0 (5.0-8.0) pH Units Ur Specific [place] 1.018 (1.010-1.025) Urine Protein Trace (Neg-Trace) mg/dL Urine Glucose (UA) Normal (Normal) mg/dL Urine Ketones Negative (Negative) mg/dL Urine Blood Small H (Negative) Urine Nitrite Negative (Negative) Urine Bilirubin Small H (Negative) Urine Urobilinogen Normal (Normal) mg/dL Ur Leukocyte Esterase Large H (Negative) Urine Microscopic RBC 0-3 (0-3) per hpf Urine Microscopic WBC TNTC H (0-3) per hpf Ur Squamous Epith Cells Many H (None-Few) per lpf Urine Bacteria Many H (None-Few) per hpf Hyaline Casts Few (None-Few) per lpf Ur Culture Indicated? NO. A (NO) 11/27/17 Range/Units 00:07 WBC (4.3-11.1) K/mcL RBC (3.82-4.97) M/mcL Hgb (11.5-15.4) g/dL Hct (35.3-44.9) % MCV (83.0-100.0) fL MCH (28.0-33.3) pg MCHC (31.6-35.5) g/dL RDW (11.5-14.5) % Plt Count (140-400) K/mcL MPV (9.4-12.4) fL Seg Neutrophils % % Band Neutrophils % (0-4) % Lymphocytes % % Monocytes % % Neutrophils # (1.6-8.9) K/mcL Lymphocytes # (0.6-4.6) K/mcL Monocytes # (0.0-1.3) K/mcL Nucleated RBCs/100 WBC (0) /100 WBC Smudge Cells (Not Present) Toxic Granulation (Not Present) Platelet Estimate (Normal) Clumped Platelets (Not Present) Large Platelets (Not Present) Polychromasia (Not Present) Sodium (136-145) mEq/L Potassium (3.5-5.1) mEq/L Chloride (98-107) mEq/L Carbon Dioxide (23-29) mEq/L BUN (8-23) mg/dL Creatinine (0.60-1.20) mg/dL Est GFR ( Amer) (> 60) Est GFR (Non-Af Amer) (> 60) BUN/Creatinine Ratio (6-26) Glucose (70-105) mg/dL Calculated Osmolality (280-300) Lactic Acid 1.7 (0.5-2.2) mmol/L Calcium (8.6-10.3) mg/dL Total Bilirubin (0.3-1.0) mg/dL Direct Bilirubin (0.0-0.2) mg/dL Indirect Bilirubin (0.0-1.2) mg/dL AST (13-39) Units/L ALT (7-52) Units/L Alkaline Phosphatase (34-104) Units/L Troponin I (< 0.04) ng/mL Serum Total Protein (6.4-8.9) g/dL Albumin (3.5-5.7) g/dL Globulin (2.4-3.5) g/dL Albumin/Globulin Ratio (1.1-2.2) Lipase (11-82) Units/L Urine Color (Yellow) Urine Clarity (Clear) Urine pH (5.0-8.0) pH Units Ur Specific [place] (1.010-1.025) Urine Protein (Neg-Trace) mg/dL Urine Glucose (UA) (Normal) mg/dL Urine Ketones (Negative) mg/dL Urine Blood (Negative) Urine Nitrite (Negative) Urine Bilirubin (Negative) Urine Urobilinogen (Normal) mg/dL Ur Leukocyte Esterase (Negative) Urine Microscopic RBC (0-3) per hpf Urine Microscopic WBC (0-3) per hpf Ur Squamous Epith Cells (None-Few) per lpf Urine Bacteria (None-Few) per hpf Hyaline Casts (None-Few) per lpf Ur Culture Indicated? (NO) Attestation Statement - Attestation Attestation: I examined this patient and my medical decision-making was reviewed with the Resident Physician. I agree with the documented findings, disposition and treatment plan as described.
== END 2017-11-28 00:45 | disposition expired | DRG 871 ==
LOC: EMEROOARM 21:03 → ICNU 11-27 05:28
PROVIDERS: ADMIT Pediatrics; ATTEND Pediatrics